=== PATIENT | male | born 1950 | race Caucasian/White ===

== ENCOUNTER 2017-09-08 15:37 | Emergency (ER) | payer MEDICARE ==
[2017-09-08 15:37] VITALS: BMI 26.7
[2017-09-08 16:25] VITALS: TEMP 98
--- NOTE | 2017-09-08 16:28 | C.PDOC ---
History Of Present Illness Patient presents to ED c/o dysuria and difficulty urinating (has to strain) x several days. He has urologist Dr. Christopher Diamond, and states he was previously given Flomax and Azo by him. He denies fever, flank pain, abdominal pain, penile discharge, nausea/vomiting, testicular pain. Time Seen by Provider: 09/08/17 16:18 Chief Complaint (Nursing): Male Genitourinary History Per: Patient, Other ( at bedside) History/Exam Limitations: no limitations Onset/Duration Of Symptoms: Days (3-4) Current Symptoms Are (Timing): Still Present Severity: Mild Quality Of Discomfort: "Pain" Associated Symptoms: Urinary Symptoms. denies: Fever, Chills, Nausea, Vomiting , Diarrhea Past Medical History Reviewed: Historical Data, Nursing Documentation, Vital Signs Vital Signs: Last Vital Signs Temp 98.0 F 09/08/17 15:42 Pulse 110 H 09/08/17 19:10 Resp 18 09/08/17 19:10 BP 166/93 H 09/08/17 19:10 Pulse Ox 99 09/08/17 19:10 - Medical History PMH: Depression, HTN Family History: States: No Known Family Hx - Social History Hx Alcohol Use: No Hx Substance Use: No - Immunization History Hx Tetanus Toxoid Vaccination: Yes Hx Influenza Vaccination: Yes Hx Pneumococcal Vaccination: Yes Review Of Systems Except As Marked, All Systems Reviewed And Found Negative. Constitutional: Negative for: Fever, Chills Cardiovascular: Negative for: Chest Pain, Palpitations Respiratory: Negative for: Cough, Shortness of Breath Gastrointestinal: Negative for: Nausea, Vomiting, Abdominal Pain, Diarrhea Genitourinary: Positive for: Dysuria. Negative for: Incontinence, Penile Discharge, Penile Pain Musculoskeletal: Negative for: Back Pain Physical Exam - Physical Exam Appears: Well, Non-toxic, No Acute Distress Head: Normacephalic Eye(s): bilateral: Normal Inspection Oral Mucosa: Moist Cardiovascular: Rhythm Regular Respiratory: Normal Breath Sounds, No Rales, No Rhonchi, No Wheezing Gastrointestinal/Abdominal: Bowel Sounds, Soft, Tenderness (mild suprapubic TTP , (-) McBurney's ) Back: No CVA Tenderness ED Course And Treatment O2 Sat by Pulse Oximetry: 98 (RA) Pulse Ox Interpretation: Normal Progress Note: UA, Ucx and accucheck ordered. Bladder scan, patient has less than 200ml in bladder. He was able to urinate without difficulty and provide UA sample. UA (+) for UTI - PO Ciprofloxacin given. Rxs for Cipro and pyridium given, and patient instructed to follow up with urologist within 1 week. He understands he should return to ED if symptoms worsen. Reevaluation Time: 19:00 Reassessment Condition: Improved (Patient resting comfortably, denies pain and is ambulating normally in ED.) Disposition Counseled Patient/Family Regarding: Studies Performed, Diagnosis, Need For Followup, Rx Given - Disposition Referrals: Rohna Diamond MD [Staff Provider] - Disposition: HOME/ ROUTINE Disposition Time: 19:00 Condition: STABLE Additional Instructions: FOLLOW UP WITH DR DIAMOND THIS WEEK USE ANTIBIOTICS UNTIL FINISHED DRINK PLENTY OF FLUIDS RETURN TO ER IF SYMPTOMS WORSEN Prescriptions: Ciprofloxacin [Cipro] 1 tab PO BID #14 tab Phenazopyridine [Pyridium] 100 mg PO TID #9 tab Instructions: Urinary Tract Infection in Men (ED) Forms: [facility] (Belizean) Print Language: ROMANIAN - POA Present On Arrival: None - Clinical Impression Clinical Impression: UTI (urinary tract infection)
[2017-09-08 17:31] LABS: RBC URINE 4 /hpf (0-3); URINE BACTERIA MOD (<OCC); URINE BILIRUBIN NEGATIVE (NEGATIVE); URINE BLOOD NEGATIVE (NEGATIVE); URINE COLOR Amber (YELLOW); URINE GLUCOSE (UA) NORMAL (Normal); URINE KETONE NEGATIVE (NEGATIVE); URINE LEUKOCYTE ESTERASE 3+ Leu/uL (Negative); URINE PROTEIN 1+ mg/dL (NEGATIVE); WBC URINE 1315 /hpf (0-5)
[2017-09-08 19:10] VITALS: BP 166/93; PULSE 110; RESP 18
[2017-09-08 23:30] VITALS: O2SAT 98
== END 2017-09-08 19:11 | disposition home or self-care (01) ==
LOC: C.ER 15:37
DX: N39.0 Urinary tract infection, site not specified (principal); I10 Essential (primary) hypertension; Z87.891 Personal history of nicotine dependence

== ENCOUNTER 2017-10-07 10:10 | Inpatient (IN) | payer MEDICARE ==
[2017-10-07 10:11] VITALS: BMI 26.7
[2017-10-07] MEDS ORDERED: Sodium Chloride 0.9% 500 ML IV ONE (10:44)
[2017-10-07] MEDS ORDERED: (Novolin R) Insulin Human Regular 100 units/ml vial IV ONE (10:50)
[2017-10-07 11:05] LABS: BASO # 0.1 K/uL (0.0-0.2); BASO % 0.7 % (0.0-2.0); EOS # 0.1 K/uL (0.0-0.7); EOS % 0.4 % (0.0-4.0); HEMATOCRIT 39.2 % (35.0-51.0); LYMPH # 0.7 K/uL (1.0-4.3); LYMPH % 4.1 % (20.0-40.0); MEAN CELL VOLUME 88.6 fL (80.0-94.0); MEAN CORPUSCULAR HEMOGLOBIN 27.4 pg (27.0-31.0); MEAN PLATELET VOLUME 10.2 fL (7.2-11.7); MONO # 0.9 K/uL (0.0-0.8); MONO % 5.5 % (0.0-10.0); PLATELET COUNT 350 K/uL (130-400); RED CELL DISTRIBUTION WIDTH 14.1 % (11.5-14.5); WHITE BLOOD COUNT 16.4 K/uL (4.8-10.8)
[2017-10-07] MEDS ORDERED: (Novolin R) Insulin Human Regular 100 units/ml vial ONE (11:11)
[2017-10-07 11:14] LABS: RBC URINE 21 /hpf (0-3); URINE BACTERIA RARE (<OCC); URINE BILIRUBIN NEGATIVE (NEGATIVE); URINE BLOOD 1+ (NEGATIVE); URINE COLOR Yellow (YELLOW); URINE GLUCOSE (UA) 3+ mg/dL (Normal); URINE KETONE TRACE mg/dL (NEGATIVE); URINE LEUKOCYTE ESTERASE TRACE Leu/uL (Negative); URINE PROTEIN NEGATIVE (NEGATIVE); URINE UROBILINOGEN NORMAL mg/dL (0.2-1.0); WBC URINE 26 /hpf (0-5)
--- NOTE | 2017-10-07 11:18 | C.PDOC ---
History Of Present Illness Michael Fontanez is a 67 year old male, with a past medical history of HTN, and diabetes, who presents to the emergency department complaining of abdominal pain and difficulty urination. On Sep 08, patient was seen in the ED complaining of dysuria relating to strain for several days. Patient was seen by Dr. Helton and given Flomax, no fevers at that time. Urinalysis and culture were done and he was discharged on Cipro and Pyridium with referral for Dr. Helton. Microbiology called on the for positive culture for ESBL, macrobid was sent and patient was recommended to come back for reevaluation. Today patient is here not feeling well, restless, feels dry, has trouble urinating and moving bowels for unclear amount of time. He denies any fever, chills, headache, neck pain, chest pain, shortness of breath, nausea or vomit. No further medical complaints. PMD: Dr. Nan Camacho Time Seen by Provider: 10/07/17 10:23 Chief Complaint (Nursing): Weakness/Neurological Deficit History Per: Patient History/Exam Limitations: no limitations Onset/Duration Of Symptoms: Days (x3) Current Symptoms Are (Timing): Still Present Location Of Pain/Discomfort: Diffuse Radiation Of Pain To:: None Quality Of Discomfort: "Pain" Associated Symptoms: Urinary Symptoms (difficulty urinating). denies: Fever, Chills, Nausea, Vomiting, Chest Pain Past Medical History Reviewed: Historical Data, Nursing Documentation, Vital Signs Vital Signs: Last Vital Signs Temp 97.6 F 10/07/17 10:27 Pulse 85 10/07/17 14:59 Resp 20 10/07/17 14:59 BP 124/84 10/07/17 14:59 Pulse Ox 96 10/07/17 14:18 - Medical History PMH: Depression, Diabetes, HTN Surgical History: No Surg Hx Family History: States: Unknown Family Hx - Social History Hx Tobacco Use: No (Former smoker) Hx Alcohol Use: No Hx Substance Use: No - Immunization History Hx Tetanus Toxoid Vaccination: Yes Hx Influenza Vaccination: Yes Hx Pneumococcal Vaccination: Yes Review Of Systems Except As Marked, All Systems Reviewed And Found Negative. Constitutional: Negative for: Fever, Chills Cardiovascular: Negative for: Chest Pain Respiratory: Negative for: Shortness of Breath Gastrointestinal: Positive for: Abdominal Pain (diffused). Negative for: Nausea , Vomiting Genitourinary: Positive for: Dysuria, Scrotal Pain Musculoskeletal: Negative for: Neck Pain Neurological: Negative for: Headache Physical Exam - Physical Exam Appears: Other (restless, poorly cooperative) Skin: Normal Color, Warm, Dry Head: Atraumatic, Normacephalic Eye(s): bilateral: Normal Inspection, PERRL, EOMI Nose: Normal Throat: Normal Neck: Normal, Normal ROM, Supple Cardiovascular: Rhythm Regular Respiratory: No Accessory Muscle Use Gastrointestinal/Abdominal: Tenderness (diffused), Distention (mild) Male Genital: Testicular Tenderness (diffuse) Extremity: Normal ROM, No Pedal Edema Neurological/Psych: Oriented x3, Normal Speech ED Course And Treatment - Laboratory Results Result Diagrams: 10/07/17 11:00 10/07/17 15:45 O2 Sat by Pulse Oximetry: 96 (RA) Pulse Ox Interpretation: Normal - CT Scan/US CT - Abd & Pelvis Other Rad Studies (CT/US): Read By Radiologist, Radiology Report Reviewed CT/US Interpretation: PROCEDURE: CT Abdomen and Pelvis without Oral or IV contrast. HISTORY: abd pain. COMPARISON: CT abdomen and pelvis performed 11/03. TECHNIQUE: Contiguous axial images of the abdomen and pelvis. No oral or IV contrast administered. Coronal and Sagittal reformats generated. Radiation dose: Total exam DLP = 701.48 mGy-cm. This CT exam was performed using one or more of the following dose reduction techniques: Automated exposure control, adjustment of the mA and/or kV according to patient size, and/or use of iterative reconstruction technique. FINDINGS: There is limited evaluation of the solid organs without the administration of IV contrast. LOWER THORAX: No visible consolidation, pleural effusion, or pneumothorax. LIVER: Unremarkable unenhanced appearance. GALLBLADDER AND BILE DUCTS: Decompressed gallbladder with high-density material, possibly debris/ sludge and/or calculi. PANCREAS: Atrophic pancreas. SPLEEN: Unremarkable unenhanced appearance. ADRENALS: Unremarkable unenhanced appearance. KIDNEYS AND URETERS: No hydronephrosis or obstructing renal calculus. 2.4 cm left upper pole renal hypodensity, likely cyst. BLADDER: Thick-walled under distended urinary bladder which contains air , possibly secondary to recent instrumentation. A Victoria catheter is present. REPRODUCTIVE: Unremarkable. APPENDIX: The appendix appears within normal limits of caliber. No secondary signs of acute appendicitis. BOWEL: The stomach is nondistended. Lack of oral contrast limits evaluation for bowel pathology. The bowel loops appear within normal limits of caliber without evidence of intestinal obstruction. PERITONEUM: No significant free fluid. No definite free air. LYMPH NODES: Enlarged/ bulky mesenteric, retroperitoneal, and inguinal adenopathy. VASCULATURE: No aortic aneurysm. BONES: Degenerative changes. OTHER FINDINGS: [id number]-right inguinal hernias. IMPRESSION: Enlarged/bulky mesenteric, retroperitoneal, and inguinal adenopathy consistent with history of lymphoma. Correlate clinically. Mesenteric inflammatory changes noted. Thick-walled under distended urinary bladder with Victoria catheter present and air. Intraluminal urinary bladder air may be secondary to recent instrumentation. Decompressed gallbladder containing high-density material, possibly debris/sludge and/or calculi. Correlate clinically. Atrophic pancreas. Medical Decision Making Medical Decision Making: Initial Impression: 67 y/o female with abdominal pain and scrotum pain Initial Plan: --Abd & Pelvis w/o PO contrast [CT] --EKG --B-type natriuretic peptide --Comp Metabolic Panel --Ketone, serum (Qual) --Lipase --Troponin I --CBC w/ differential --Chest one view [RAD] --Novolin R 6 unit IV --NS IV 5000 ml @ 1,000 mls/hr --Urine culture --Abdomen (flat plate) 1view [RAD] --Urinalysis --reevaluation 11:54 Abd/Pelvis CT FINDINGS: There is limited evaluation of the solid organs without the administration of IV contrast. LOWER THORAX: No visible consolidation, pleural effusion, or pneumothorax. LIVER: Unremarkable unenhanced appearance. GALLBLADDER AND BILE DUCTS: Decompressed gallbladder with high-density material, possibly debris/ sludge and /or calculi. PANCREAS: Atrophic pancreas. SPLEEN: Unremarkable unenhanced appearance. ADRENALS: Unremarkable unenhanced appearance. KIDNEYS AND URETERS: No hydronephrosis or obstructing renal calculus. 2.4 cm left upper pole renal hypodensity, likely cyst. BLADDER: Thick-walled under distended urinary bladder which contains air, possibly secondary to recent instrumentation. A Victoria catheter is present. REPRODUCTIVE: Unremarkable. APPENDIX: The appendix appears within normal limits of caliber. No secondary signs of acute appendicitis. BOWEL: The stomach is nondistended. Lack of oral contrast limits evaluation for bowel pathology. The bowel loops appear within normal limits of caliber without evidence of intestinal obstruction. PERITONEUM: No significant free fluid. No definite free air. LYMPH NODES: Enlarged/ bulky mesenteric, retroperitoneal, and inguinal adenopathy. VASCULATURE: No aortic aneurysm. BONES: Degenerative changes. OTHER FINDINGS: [id number]-ylxo-right inguinal hernias. IMPRESSION: Enlarged/bulky mesenteric, retroperitoneal, and inguinal adenopathy consistent with history of lymphoma. Correlate clinically. Mesenteric inflammatory changes noted. Thick-walled under distended urinary bladder with Victoria catheter present and air. Intraluminal urinary bladder air may be secondary to recent instrumentation. Decompressed gallbladder containing high-density material, possibly debris/ sludge and/or calculi. Correlate clinically. Atrophic pancreas. 13:51 Abdomen X-Ray FINDINGS: BOWEL: Left and right stool retention. No mechanical obstruction. No free air. BONES: L4 and L5 spondylosis. Bilateral hip mild osteoarthrosis OTHER FINDINGS: Multiple bilateral hemipelvic phleboliths IMPRESSION: Stool retention consistent with a clinical constipation. No mechanical obstruction. No free air 14:01 Chest x-ray FINDINGS: LUNGS: Clear. PLEURA: No pneumothorax or pleural fluid seen. CARDIOVASCULAR: Normal OSSEOUS STRUCTURES: Thoracic spondylosis. Bilateral shoulder arthrosis VISUALIZED UPPER ABDOMEN: Normal. OTHER FINDINGS: None. IMPRESSION: No pulmonary infiltrate. No interval pathology Patient seen by ICU, downgraded to tele. Disposition Discussed With DrFernando: Tarik Echeverria Counseled Patient/Family Regarding: Studies Performed, Diagnosis - Disposition Disposition Time: 18:17 Condition: GUARDED Forms: [facility] (Romanian) - Clinical Impression Clinical Impression: Hyperglycemia, Hyperosmolar non-ketotic state in patient with type 2 diabetes mellitus - Scribe Statement Antonio Heck Provider Attestation: All medical record entries made by the Scribe were at my direction and personally dictated by me. I have reviewed the chart and agree that the record accurately reflects my personal performance of the history, physical exam, medical decision making, and the department course for this patient. I have also personally directed, reviewed, and agree with the discharge instructions and disposition. Decision To Admit - Pt Status Changed To: Hospital Disposition Of: Inpatient - Admit Certification Admit to Inpatient:: After my assessment, the patient will require hospitalization for at least two midnights. This is because of the severity of symptoms shown, intensity of services needed, and/or the medical risk in this patient being treated as an outpatient. - InPatient: Physician Admission Certification:: critical patient - . Bed Request Type: Telemetry Patient Diagnosis: Hyperglycemia, Hyperosmolar non-ketotic state in patient with type 2 diabetes mellitus
[2017-10-07 11:47] LABS: NEUTROPHIL 94 % (50-75); TOTAL CELLS COUNTED 100
--- NOTE | 2017-10-07 12:08 | CT ---
PROCEDURE: CT Abdomen and Pelvis without Oral or IV contrast. HISTORY: abd pain COMPARISON: CT abdomen and pelvis performed 11/03/15 TECHNIQUE: Contiguous axial images of the abdomen and pelvis. No oral or IV contrast administered. Coronal and Sagittal reformats generated. Radiation dose: Total exam DLP = 701.48 mGy-cm. This CT exam was performed using one or more of the following dose reduction techniques: Automated exposure control, adjustment of the mA and/or kV according to patient size, and/or use of iterative reconstruction technique. FINDINGS: There is limited evaluation of the solid organs without the administration of IV contrast. LOWER THORAX: No visible consolidation, pleural effusion, or pneumothorax. LIVER: Unremarkable unenhanced appearance. GALLBLADDER AND BILE DUCTS: Decompressed gallbladder with high-density material, possibly debris/ sludge and/or calculi. PANCREAS: Atrophic pancreas. SPLEEN: Unremarkable unenhanced appearance. ADRENALS: Unremarkable unenhanced appearance. KIDNEYS AND URETERS: No hydronephrosis or obstructing renal calculus. 2.4 cm left upper pole renal hypodensity, likely cyst. BLADDER: Thick-walled under distended urinary bladder which contains air, possibly secondary to recent instrumentation. A Victoria catheter is present. REPRODUCTIVE: Unremarkable. APPENDIX: The appendix appears within normal limits of caliber. No secondary signs of acute appendicitis. BOWEL: The stomach is nondistended. Lack of oral contrast limits evaluation for bowel pathology. The bowel loops appear within normal limits of caliber without evidence of intestinal obstruction. PERITONEUM: No significant free fluid. No definite free air. LYMPH NODES: Enlarged/ bulky mesenteric, retroperitoneal, and inguinal adenopathy. VASCULATURE: No aortic aneurysm. BONES: Degenerative changes. OTHER FINDINGS: [id number]-fivj-right inguinal hernias. IMPRESSION: Enlarged/bulky mesenteric, retroperitoneal, and inguinal adenopathy consistent with history of lymphoma. Correlate clinically. Mesenteric inflammatory changes noted. Thick-walled under distended urinary bladder with Victoria catheter present and air. Intraluminal urinary bladder air may be secondary to recent instrumentation. Decompressed gallbladder containing high-density material, possibly debris/sludge and/or calculi. Correlate clinically. Atrophic pancreas.
[2017-10-07 12:51] LABS: ALB/GLOB RATIO 0.8 (1.0-2.1); ALKALINE PHOSPHATASE 111 U/L (38-126); ALT/SGPT 31 U/L (21-72); AST/SGOT 14 U/L (17-59); BILIRUBIN,TOTAL 0.5 mg/dL (0.2-1.3); BLOOD UREA NITROGEN 49 mg/dL (9-20); CALCIUM 8.3 mg/dl (8.6-10.4); CARBON DIOXIDE 24 mmol/L (22-30); CHLORIDE 87 mmol/L (98-107); GFR AFRICAN-AMERICAN 56; POTASSIUM 4.1 mmol/L (3.6-5.2); TOTAL PROTEIN 7.3 g/dL (6.3-8.3)
[2017-10-07 13:16] LABS: GLUCOSE,RANDOM 1179 mg/dL (75-110); SODIUM 119 mmol/L (132-148)
[2017-10-07] MEDS ORDERED: Insulin Human Regular 100 UNIT in Sodium Chloride 0.9% 99 ML IV STA ×2 (13:26→22:07)
[2017-10-07] MEDS ORDERED: Sodium Chloride 0.9% 1,000 ML IV ONE ×3 (13:26→20:01)
--- NOTE | 2017-10-07 13:52 | RAD ---
HISTORY: abd pain COMPARISON: No prior. FINDINGS: BOWEL: Left and right stool retention. No mechanical obstruction. No free air. BONES: L4 and L5 spondylosis. Bilateral hip mild osteoarthrosis OTHER FINDINGS: Multiple bilateral hemipelvic phleboliths IMPRESSION: Stool retention consistent with a clinical constipation. No mechanical obstruction. No free air
--- NOTE | 2017-10-07 14:03 | RAD ---
PROCEDURE: CHEST RADIOGRAPH, 1 VIEW HISTORY: abd pain COMPARISON: 11/01/2015 FINDINGS: LUNGS: Clear. PLEURA: No pneumothorax or pleural fluid seen. CARDIOVASCULAR: Normal OSSEOUS STRUCTURES: Thoracic spondylosis. Bilateral shoulder arthrosis VISUALIZED UPPER ABDOMEN: Normal. OTHER FINDINGS: None. IMPRESSION: No pulmonary infiltrate. No interval pathology
[2017-10-07 14:13] LABS: DRAW SITE VBG; VENOUS BLOOD GAS BASE EXCESS -1.5 mmol/L (0.0-2.0); VENOUS BLOOD GAS PCO2 47 mmHg (40-60); VENOUS BLOOD PH 7.33 (7.32-7.43)
[2017-10-07 16:27] LABS: ALKALINE PHOSPHATASE 114 U/L (38-126); ALT/SGPT 25 U/L (21-72); AST/SGOT 18 U/L (17-59); BILIRUBIN,TOTAL 0.6 mg/dL (0.2-1.3); BLOOD UREA NITROGEN 46 mg/dL (9-20); CALCIUM 8.3 mg/dl (8.6-10.4); CARBON DIOXIDE 26 mmol/L (22-30); CHLORIDE 87 mmol/L (98-107); GFR AFRICAN-AMERICAN > 60; POTASSIUM 3.7 mmol/L (3.6-5.2); SODIUM 125 mmol/L (132-148); TOTAL PROTEIN 7.3 g/dL (6.3-8.3)
[2017-10-07 16:48] LABS: GLUCOSE,RANDOM 854 mg/dL (75-110)
--- NOTE | 2017-10-07 19:55 | CP.PCM.HP ---
Past Patient History - Past Social History Smoking Status: Former Smoker - CARDIAC Hx Hypertension: Yes - ENDOCRINE/METABOLIC Hx Diabetes Mellitus Type 1: Yes (2014) - INTEGUMENTARY Other/Comment: Non Hodgekins Lymphoma - MUSCULOSKELETAL/RHEUMATOLOGICAL Hx Falls: Yes - GENITOURINARY/GYNECOLOGICAL Hx Prostate Problems: Yes - PSYCHIATRIC Hx Depression: Yes Hx Substance Use: No - SURGICAL HISTORY Other/Comment: biopsy of the groin 1998 - ANESTHESIA Hx Anesthesia: Yes Hx Anesthesia Reactions: No Meds Allergies/Adverse Reactions: Allergies Allergy/AdvReac Type Severity Reaction Status Date / Time No Known Allergies Allergy Verified 10/07/17 10:14 Results - Vital Signs Recent Vital Signs: Last Vital Signs Temp 97.6 F 10/07/17 10:27 Pulse 85 10/07/17 14:59 Resp 20 10/07/17 14:59 BP 124/84 10/07/17 14:59 Pulse Ox 96 10/07/17 18:18 - Labs Result Diagrams: 10/07/17 11:00 10/07/17 15:45 Labs: Laboratory Results - last 24 hr 10/07/17 10/07/17 10/07/17 10:40 10:40 11:00 WBC 16.4 H D RBC 4.42 Hgb 12.1 D Hct 39.2 MCV 88.6 MCH 27.4 MCHC 31.0 L RDW 14.1 Plt Count 350 D MPV 10.2 Neut % (Auto) 89.3 H Lymph % (Auto) 4.1 L Ellis % (Auto) 5.5 Eos % (Auto) 0.4 Baso % (Auto) 0.7 Neut # 14.6 H Lymph # 0.7 L Ellis # 0.9 H Eos # 0.1 Baso # 0.1 Neutrophils % (Manual) 94 H Lymphocytes % (Manual) 4 L Monocytes % (Manual) 2 Platelet Estimate Normal RBC Morphology Normal Puncture Site pO2 Mega Test VBG pH VBG pCO2 VBG HCO3 VBG O2 Sat (Calc) VBG Base Excess Sodium Potassium Chloride Carbon Dioxide Anion Gap BUN Creatinine Est GFR ( Amer) Est GFR (Non-Af Amer) POC Glucose (mg/dL) > 500 H* > 500 H* Random Glucose Calcium Total Bilirubin AST ALT Alkaline Phosphatase Troponin I NT-Pro-B Natriuret Pep Total Protein Albumin Globulin Albumin/Globulin Ratio Lipase Urine Color Urine Clarity Urine pH Ur Specific [place] Urine Protein Urine Glucose (UA) Urine Ketones Urine Blood Urine Nitrate Urine Bilirubin Urine Urobilinogen Ur Leukocyte Esterase Urine WBC (Auto) Urine RBC (Auto) Urine Bacteria Serum Ketones 10/07/17 10/07/17 10/07/17 11:00 11:00 12:19 WBC RBC Hgb Hct MCV MCH MCHC RDW Plt Count MPV Neut % (Auto) Lymph % (Auto) Ellis % (Auto) Eos % (Auto) Baso % (Auto) Neut # Lymph # Ellis # Eos # Baso # Neutrophils % (Manual) Lymphocytes % (Manual) Monocytes % (Manual) Platelet Estimate RBC Morphology Puncture Site pO2 Mega Test VBG pH VBG pCO2 VBG HCO3 VBG O2 Sat (Calc) VBG Base Excess Sodium Cancelled 119 L* Potassium Cancelled 4.1 Chloride Cancelled 87 L Carbon Dioxide Cancelled 24 Anion Gap Cancelled 12 BUN Cancelled 49 H Creatinine Cancelled 1.5 Est GFR ( Amer) Cancelled 56 Est GFR (Non-Af Amer) Cancelled 46 POC Glucose (mg/dL) Random Glucose Cancelled 1179 H* Calcium Cancelled 8.3 L Total Bilirubin Cancelled 0.5 AST Cancelled 14 L ALT Cancelled 31 Alkaline Phosphatase Cancelled 111 Troponin I Cancelled < 0.0120 NT-Pro-B Natriuret Pep Cancelled 673 Total Protein Cancelled 7.3 Albumin Cancelled 3.2 L Globulin Cancelled 4.1 H Albumin/Globulin Ratio Cancelled 0.8 L Lipase Cancelled 88 Urine Color Yellow Urine Clarity Hazy Urine pH 5.0 Ur Specific [place] 1.021 Urine Protein Negative Urine Glucose (UA) 3+ H Urine Ketones Trace Urine Blood 1+ H Urine Nitrate Negative Urine Bilirubin Negative Urine Urobilinogen Normal Ur Leukocyte Esterase Trace Urine WBC (Auto) 26 H Urine RBC (Auto) 21 H Urine Bacteria Rare Serum Ketones Cancelled Neg 10/07/17 10/07/17 10/07/17 14:10 14:12 15:21 WBC RBC Hgb Hct MCV MCH MCHC RDW Plt Count MPV Neut % (Auto) Lymph % (Auto) Ellis % (Auto) Eos % (Auto) Baso % (Auto) Neut # Lymph # Ellis # Eos # Baso # Neutrophils % (Manual) Lymphocytes % (Manual) Monocytes % (Manual) Platelet Estimate RBC Morphology Puncture Site Vbg pO2 34 Mgea Test Na VBG pH 7.33 VBG pCO2 47 VBG HCO3 22.8 VBG O2 Sat (Calc) 64.9 VBG Base Excess -1.5 L Sodium Potassium Chloride Carbon Dioxide Anion Gap BUN Creatinine Est GFR ( Amer) Est GFR (Non-Af Amer) POC Glucose (mg/dL) > 500 H* Random Glucose Calcium Total Bilirubin AST ALT Alkaline Phosphatase Troponin I NT-Pro-B Natriuret Pep Total Protein Albumin Globulin Albumin/Globulin Ratio Lipase Urine Color Urine Clarity Urine pH Ur Specific [place] Urine Protein Urine Glucose (UA) Urine Ketones Urine Blood Urine Nitrate Urine Bilirubin Urine Urobilinogen Ur Leukocyte Esterase Urine WBC (Auto) Urine RBC (Auto) Urine Bacteria Serum Ketones Negative 10/07/17 10/07/17 10/07/17 15:23 15:45 17:18 WBC RBC Hgb Hct MCV MCH MCHC RDW Plt Count MPV Neut % (Auto) Lymph % (Auto) Ellis % (Auto) Eos % (Auto) Baso % (Auto) Neut # Lymph # Ellis # Eos # Baso # Neutrophils % (Manual) Lymphocytes % (Manual) Monocytes % (Manual) Platelet Estimate RBC Morphology Puncture Site pO2 Mega Test VBG pH VBG pCO2 VBG HCO3 VBG O2 Sat (Calc) VBG Base Excess Sodium 125 L Potassium 3.7 Chloride 87 L Carbon Dioxide 26 Anion Gap 16 BUN 46 H Creatinine 1.4 Est GFR ( Amer) > 60 Est GFR (Non-Af Amer) 50 POC Glucose (mg/dL) > 500 H* > 500 H* Random Glucose 854 H* D Calcium 8.3 L Total Bilirubin 0.6 AST 18 ALT 25 Alkaline Phosphatase 114 Troponin I NT-Pro-B Natriuret Pep Total Protein 7.3 Albumin 3.7 Globulin 3.6 Albumin/Globulin Ratio 1.0 Lipase Urine Color Urine Clarity Urine pH Ur Specific [place] Urine Protein Urine Glucose (UA) Urine Ketones Urine Blood Urine Nitrate Urine Bilirubin Urine Urobilinogen Ur Leukocyte Esterase Urine WBC (Auto) Urine RBC (Auto) Urine Bacteria Serum Ketones 10/07/17 19:24 WBC RBC Hgb Hct MCV MCH MCHC RDW Plt Count MPV Neut % (Auto) Lymph % (Auto) Ellis % (Auto) Eos % (Auto) Baso % (Auto) Neut # Lymph # Ellis # Eos # Baso # Neutrophils % (Manual) Lymphocytes % (Manual) Monocytes % (Manual) Platelet Estimate RBC Morphology Puncture Site pO2 Mega Test VBG pH VBG pCO2 VBG HCO3 VBG O2 Sat (Calc) VBG Base Excess Sodium Potassium Chloride Carbon Dioxide Anion Gap BUN Creatinine Est GFR ( Amer) Est GFR (Non-Af Amer) POC Glucose (mg/dL) > 500 H* Random Glucose Calcium Total Bilirubin AST ALT Alkaline Phosphatase Troponin I NT-Pro-B Natriuret Pep Total Protein Albumin Globulin Albumin/Globulin Ratio Lipase Urine Color Urine Clarity Urine pH Ur Specific [place] Urine Protein Urine Glucose (UA) Urine Ketones Urine Blood Urine Nitrate Urine Bilirubin Urine Urobilinogen Ur Leukocyte Esterase Urine WBC (Auto) Urine RBC (Auto) Urine Bacteria Serum Ketones
[2017-10-07] MEDS ORDERED: Insulin Detemir 100 units/ml Vial (Levemir) SC STA (20:00)
[2017-10-07] MEDS ORDERED: (Novolin R) Insulin Human Regular 100 units/ml vial IV STA (20:01)
--- NOTE | 2017-10-07 20:51 | CARD ---
APPROVED REPORT EKG Measurement Heart [id number] <Conclusion> Sinus rhythm with occasional premature ventricular complexes Otherwise normal ECG
[2017-10-07] MEDS ORDERED: Meropenem 1 GM in Sodium Chloride 0.9% 100 ML IVPB ONE (21:28)
--- NOTE | 2017-10-07 21:38 | CP.PCM.CON ---
History of Present Illness - History of Present Illness History of Present Illness: 67yo M. PMHx of HTN, Non-Hodgkins lymphoma, hyperlipidemia, DM type 2, recurrent UTI's, possible BPH. p/w HHS, possibly underlying UTI. Review of Systems - Review of Systems All systems: reviewed and no additional remarkable complaints except (nothing) Past Patient History - Past Social History Smoking Status: Former Smoker - CARDIAC Hx Hypertension: Yes - ENDOCRINE/METABOLIC Hx Diabetes Mellitus Type 1: Yes (2014) - INTEGUMENTARY Other/Comment: Non Hodgekins Lymphoma - MUSCULOSKELETAL/RHEUMATOLOGICAL Hx Falls: Yes - GENITOURINARY/GYNECOLOGICAL Hx Prostate Problems: Yes - PSYCHIATRIC Hx Depression: Yes Hx Substance Use: No - SURGICAL HISTORY Other/Comment: biopsy of the groin 1998 - ANESTHESIA Hx Anesthesia: Yes Hx Anesthesia Reactions: No Meds Allergies/Adverse Reactions: Allergies Allergy/AdvReac Type Severity Reaction Status Date / Time No Known Allergies Allergy Verified 10/07/17 10:14 - Medications Medications: Current Medications Insulin Human Regular 100 unit (/ Sodium Chloride) 100 mls @ 5 mls/hr IV .Q20H STA PRN Reason: 5 U/HR Stop: 10/08/17 09:25 Last Admin: 10/07/17 14:01 Dose: 5 mls/hr Sodium Chloride (Sodium Chloride 0.9%) 1,000 mls @ 150 mls/hr IV .Q6H40M ONE Stop: 10/08/17 02:40 Last Admin: 10/07/17 20:13 Dose: 150 mls/hr Physical Exam - Constitutional Appears: Well - Head Exam Head Exam: ATRAUMATIC, NORMAL INSPECTION, NORMOCEPHALIC - Eye Exam Eye Exam: EOMI, Normal appearance, PERRL - ENT Exam ENT Exam: Mucous Membranes Moist, Normal Exam - Respiratory Exam Respiratory Exam: Clear to Auscultation Bilateral, NORMAL BREATHING PATTERN - Cardiovascular Exam Cardiovascular Exam: REGULAR RHYTHM - GI/Abdominal Exam GI & Abdominal Exam: Normal Bowel Sounds, Soft. absent: Tenderness - Extremities Exam Extremities exam: Positive for: normal inspection - Neurological Exam Neurological exam: Alert, CN II-XII Intact, Normal Gait, Oriented x3, Reflexes Normal - Psychiatric Exam Psychiatric exam: Normal Affect, Normal Mood Results - Vital Signs Recent Vital Signs: Last Vital Signs Temp 98.6 F 10/07/17 20:19 Pulse 84 10/07/17 20:16 Resp 14 10/07/17 20:16 BP 113/65 10/07/17 20:16 Pulse Ox 98 10/07/17 20:16 - Labs Result Diagrams: 10/07/17 11:00 10/07/17 15:45 Labs: Laboratory Results - last 24 hr 10/07/17 10/07/17 10/07/17 10:40 10:40 11:00 WBC 16.4 H D RBC 4.42 Hgb 12.1 D Hct 39.2 MCV 88.6 MCH 27.4 MCHC 31.0 L RDW 14.1 Plt Count 350 D MPV 10.2 Neut % (Auto) 89.3 H Lymph % (Auto) 4.1 L [place] % (Auto) 5.5 Eos % (Auto) 0.4 Baso % (Auto) 0.7 Neut # 14.6 H Lymph # 0.7 L [place] # 0.9 H Eos # 0.1 Baso # 0.1 Neutrophils % (Manual) 94 H Lymphocytes % (Manual) 4 L Monocytes % (Manual) 2 Platelet Estimate Normal RBC Morphology Normal Puncture Site pO2 Mega Test VBG pH VBG pCO2 VBG HCO3 VBG O2 Sat (Calc) VBG Base Excess Sodium Potassium Chloride Carbon Dioxide Anion Gap BUN Creatinine Est GFR ( Amer) Est GFR (Non-Af Amer) POC Glucose (mg/dL) > 500 H* > 500 H* Random Glucose Calcium Total Bilirubin AST ALT Alkaline Phosphatase Troponin I NT-Pro-B Natriuret Pep Total Protein Albumin Globulin Albumin/Globulin Ratio Lipase Urine Color Urine Clarity Urine pH Ur Specific [place] Urine Protein Urine Glucose (UA) Urine Ketones Urine Blood Urine Nitrate Urine Bilirubin Urine Urobilinogen Ur Leukocyte Esterase Urine WBC (Auto) Urine RBC (Auto) Urine Bacteria Serum Ketones 10/07/17 10/07/17 10/07/17 11:00 11:00 12:19 WBC RBC Hgb Hct MCV MCH MCHC RDW Plt Count MPV Neut % (Auto) Lymph % (Auto) [place] % (Auto) Eos % (Auto) Baso % (Auto) Neut # Lymph # [place] # Eos # Baso # Neutrophils % (Manual) Lymphocytes % (Manual) Monocytes % (Manual) Platelet Estimate RBC Morphology Puncture Site pO2 Mega Test VBG pH VBG pCO2 VBG HCO3 VBG O2 Sat (Calc) VBG Base Excess Sodium Cancelled 119 L* Potassium Cancelled 4.1 Chloride Cancelled 87 L Carbon Dioxide Cancelled 24 Anion Gap Cancelled 12 BUN Cancelled 49 H Creatinine Cancelled 1.5 Est GFR ( Amer) Cancelled 56 Est GFR (Non-Af Amer) Cancelled 46 POC Glucose (mg/dL) Random Glucose Cancelled 1179 H* Calcium Cancelled 8.3 L Total Bilirubin Cancelled 0.5 AST Cancelled 14 L ALT Cancelled 31 Alkaline Phosphatase Cancelled 111 Troponin I Cancelled < 0.0120 NT-Pro-B Natriuret Pep Cancelled 673 Total Protein Cancelled 7.3 Albumin Cancelled 3.2 L Globulin Cancelled 4.1 H Albumin/Globulin Ratio Cancelled 0.8 L Lipase Cancelled 88 Urine Color Yellow Urine Clarity Hazy Urine pH 5.0 Ur Specific [place] 1.021 Urine Protein Negative Urine Glucose (UA) 3+ H Urine Ketones Trace Urine Blood 1+ H Urine Nitrate Negative Urine Bilirubin Negative Urine Urobilinogen Normal Ur Leukocyte Esterase Trace Urine WBC (Auto) 26 H Urine RBC (Auto) 21 H Urine Bacteria Rare Serum Ketones Cancelled Neg 10/07/17 10/07/17 10/07/17 14:10 14:12 15:21 WBC RBC Hgb Hct MCV MCH MCHC RDW Plt Count MPV Neut % (Auto) Lymph % (Auto) [place] % (Auto) Eos % (Auto) Baso % (Auto) Neut # Lymph # [place] # Eos # Baso # Neutrophils % (Manual) Lymphocytes % (Manual) Monocytes % (Manual) Platelet Estimate RBC Morphology Puncture Site Vbg pO2 34 Mega Test Na VBG pH 7.33 VBG pCO2 47 VBG HCO3 22.8 VBG O2 Sat (Calc) 64.9 VBG Base Excess -1.5 L Sodium Potassium Chloride Carbon Dioxide Anion Gap BUN Creatinine Est GFR ( Amer) Est GFR (Non-Af Amer) POC Glucose (mg/dL) > 500 H* Random Glucose Calcium Total Bilirubin AST ALT Alkaline Phosphatase Troponin I NT-Pro-B Natriuret Pep Total Protein Albumin Globulin Albumin/Globulin Ratio Lipase Urine Color Urine Clarity Urine pH Ur Specific [place] Urine Protein Urine Glucose (UA) Urine Ketones Urine Blood Urine Nitrate Urine Bilirubin Urine Urobilinogen Ur Leukocyte Esterase Urine WBC (Auto) Urine RBC (Auto) Urine Bacteria Serum Ketones Negative 10/07/17 10/07/17 10/07/17 15:23 15:45 17:18 WBC RBC Hgb Hct MCV MCH MCHC RDW Plt Count MPV Neut % (Auto) Lymph % (Auto) [place] % (Auto) Eos % (Auto) Baso % (Auto) Neut # Lymph # [place] # Eos # Baso # Neutrophils % (Manual) Lymphocytes % (Manual) Monocytes % (Manual) Platelet Estimate RBC Morphology Puncture Site pO2 Mega Test VBG pH VBG pCO2 VBG HCO3 VBG O2 Sat (Calc) VBG Base Excess Sodium 125 L Potassium 3.7 Chloride 87 L Carbon Dioxide 26 Anion Gap 16 BUN 46 H Creatinine 1.4 Est GFR ( Amer) > 60 Est GFR (Non-Af Amer) 50 POC Glucose (mg/dL) > 500 H* > 500 H* Random Glucose 854 H* D Calcium 8.3 L Total Bilirubin 0.6 AST 18 ALT 25 Alkaline Phosphatase 114 Troponin I NT-Pro-B Natriuret Pep Total Protein 7.3 Albumin 3.7 Globulin 3.6 Albumin/Globulin Ratio 1.0 Lipase Urine Color Urine Clarity Urine pH Ur Specific [place] Urine Protein Urine Glucose (UA) Urine Ketones Urine Blood Urine Nitrate Urine Bilirubin Urine Urobilinogen Ur Leukocyte Esterase Urine WBC (Auto) Urine RBC (Auto) Urine Bacteria Serum Ketones 10/07/17 10/07/17 10/07/17 19:24 20:23 21:06 WBC RBC Hgb Hct MCV MCH MCHC RDW Plt Count MPV Neut % (Auto) Lymph % (Auto) [place] % (Auto) Eos % (Auto) Baso % (Auto) Neut # Lymph # [place] # Eos # Baso # Neutrophils % (Manual) Lymphocytes % (Manual) Monocytes % (Manual) Platelet Estimate RBC Morphology Puncture Site pO2 Mega Test VBG pH VBG pCO2 VBG HCO3 VBG O2 Sat (Calc) VBG Base Excess Sodium Potassium Chloride Carbon Dioxide Anion Gap BUN Creatinine Est GFR ( Amer) Est GFR (Non-Af Amer) POC Glucose (mg/dL) > 500 H* 429 H* 340 H Random Glucose Calcium Total Bilirubin AST ALT Alkaline Phosphatase Troponin I NT-Pro-B Natriuret Pep Total Protein Albumin Globulin Albumin/Globulin Ratio Lipase Urine Color Urine Clarity Urine pH Ur Specific [place] Urine Protein Urine Glucose (UA) Urine Ketones Urine Blood Urine Nitrate Urine Bilirubin Urine Urobilinogen Ur Leukocyte Esterase Urine WBC (Auto) Urine RBC (Auto) Urine Bacteria Serum Ketones Assessment & Plan (1) Hyperosmolar non-ketotic state in patient with type 2 diabetes mellitus Assessment and Plan: 67yo M. PMHx of HTN, Non-Hodgkins lymphoma, hyperlipidemia, DM type 2, recurrent UTI's, possible BPH. p/w HHS, possibly underlying UTI. Neuro: no acute issues Pulm: breathing spontaneously on room air CV: hemodynamically stable Renal: probable BPH, will start Flomax. probable pseudohyponatremia, will recheck once glucose is corrected. NS@150 Endo: hyperosmolar hyperglycemic state, on insulin drip, titrate down to sliding scale with qac/qhs coverage. Endo consult in a.m. GI: diabetic diet ID: sepsis from UTI, started Meropenem (hx of ESBL) DVT proph - lovenox GI proph - not currently indicated Full code Critical Care time 35 minutes Status: Acute
[2017-10-07] MEDS: Meropenem 1 GM in Sodium Chloride 0.9% 100 ML IVPB SCH (21:54)
[2017-10-08] MEDS ORDERED: Sodium Chloride 0.9% 1,000 ML IV SCH (04:30)
[2017-10-08] MEDS: Meropenem 1 GM in Sodium Chloride 0.9% 100 ML IVPB SCH ×3 (05:49→21:15)
[2017-10-08] MEDS ORDERED: (Novolin R) Insulin Human Regular 100 units/ml vial SC SCH (06:00)
[2017-10-08 06:39] LABS: BASO # 0.1 K/uL (0.0-0.2); BASO % 0.6 % (0.0-2.0); EOS # 0.2 K/uL (0.0-0.7); EOS % 1.1 % (0.0-4.0); HEMATOCRIT 32.9 % (35.0-51.0); LYMPH # 1.5 K/uL (1.0-4.3); MEAN CELL VOLUME 82.9 fL (80.0-94.0); MEAN CORPUSCULAR HEMOGLOBIN 28.4 pg (27.0-31.0); MEAN CORPUSCULAR HGB CONC 34.3 g/dL (33.0-37.0); MONO # 1.1 K/uL (0.0-0.8); MONO % 6.2 % (0.0-10.0); PLATELET COUNT 379 K/uL (130-400); RED CELL DISTRIBUTION WIDTH 13.9 % (11.5-14.5); WHITE BLOOD COUNT 17.2 K/uL (4.8-10.8)
[2017-10-08 07:52] LABS: ALKALINE PHOSPHATASE 93 U/L (38-126); ALT/SGPT 31 U/L (21-72); AST/SGOT 17 U/L (17-59); BILIRUBIN,TOTAL 0.6 mg/dL (0.2-1.3); BLOOD UREA NITROGEN 37 mg/dL (9-20); CALCIUM 8.6 mg/dl (8.6-10.4); CARBON DIOXIDE 26 mmol/L (22-30); CHLORIDE 100 mmol/L (98-107); GFR AFRICAN-AMERICAN > 60; GLUCOSE,RANDOM 265 mg/dL (75-110); MAGNESIUM 1.6 mg/dL (1.6-2.3); PHOSPHOROUS 3.2 mg/dL (2.5-4.5); POTASSIUM 3.5 mmol/L (3.6-5.2); SODIUM 134 mmol/L (132-148); TOTAL PROTEIN 6.6 g/dL (6.3-8.3)
[2017-10-08 08:27] LABS: EOSINOPHIL 1 % (0-4); MYELOCYTE 1 % (0-0); NEUTROPHIL 85 % (50-75); TOTAL CELLS COUNTED 100
[2017-10-08 08:28] LABS: GIANT PLATELETS PRESENT
[2017-10-08] MEDS ORDERED: Potassium Chloride 20 mEq ER Tab PO ONE (09:15)
[2017-10-08] MEDS: (Novolin R) Insulin Human Regular 100 units/ml vial SC SCH ×3 (11:51→21:22)
--- NOTE | 2017-10-08 19:54 | CP.PCM.PN ---
Subjective - Date & Time of Evaluation Date of Evaluation: 10/08/17 Time of Evaluation: 12:20 - Subjective Subjective: clinically same Objective - Vital Signs/Intake and Output Vital Signs (last 24 hours): Temp Pulse Resp BP Pulse Ox 97.9 F 96 H 17 101/49 L 95 10/08/17 16:00 10/08/17 18:00 10/08/17 16:10 10/08/17 16:02 10/08/17 08:00 Intake and Output: 10/08/17 10/09/17 18:59 06:59 Intake Total 1775 Output Total 1160 Balance 615 - Medications Medications: Current Medications Enoxaparin Sodium (Lovenox) 40 mg SC DAILY [facility] Glipizide (Glucotrol) 10 mg PO ACB [facility] Last Admin: 10/08/17 16:56 Dose: 10 mg Meropenem 1 gm/ Sodium (Chloride) 100 mls @ 100 mls/hr IVPB Q8H [facility] Last Admin: 10/08/17 13:10 Dose: 100 mls/hr Insulin Human Regular (Novolin R) 0 unit SC ACHS [facility] PRN Reason: Protocol Last Admin: 10/08/17 16:37 Dose: 12 unit Ketorolac Tromethamine (Toradol) 30 mg IVP Q8H PRN PRN Reason: Pain, moderate (4-7) Last Admin: 10/08/17 19:02 Dose: 30 mg Metformin HCl (Glucophage) 500 mg PO BIDAC [facility] Last Admin: 10/08/17 16:56 Dose: 500 mg Pneumococcal Polyvalent Vaccine (Pneumovax 23 Vaccine) 0.5 ml IM .ONCE ONE Stop: 10/09/17 10:01 Tamsulosin HCl (Flomax) 0.4 mg PO DAILY [facility] Last Admin: 10/08/17 09:21 Dose: 0.4 mg - Labs Labs: 10/08/17 06:26 10/08/17 06:59 - Constitutional Appears: Well - Head Exam Head Exam: ATRAUMATIC, NORMAL INSPECTION, NORMOCEPHALIC - Eye Exam Eye Exam: EOMI, Normal appearance, PERRL Pupil Exam: NORMAL ACCOMODATION, PERRL - ENT Exam ENT Exam: Mucous Membranes Moist, Normal Exam - Neck Exam Neck Exam: Full ROM, Normal Inspection. absent: Lymphadenopathy - Respiratory Exam Respiratory Exam: Decreased Breath Sounds - Cardiovascular Exam Cardiovascular Exam: REGULAR RHYTHM, +S1, +S2 - GI/Abdominal Exam GI & Abdominal Exam: Soft, Diminished Bowel Sounds - Rectal Exam Rectal Exam: Deferred
[2017-10-08] MEDS: Enoxaparin 40 mg Syringe SC SCH (21:22)
[2017-10-09] MEDS: Meropenem 1 GM in Sodium Chloride 0.9% 100 ML IVPB SCH ×3 (05:15→22:29)
[2017-10-09] MEDS: (Novolin R) Insulin Human Regular 100 units/ml vial SC SCH ×4 (07:52→22:38)
[2017-10-09] MEDS: Enoxaparin 40 mg Syringe SC SCH (09:57)
[2017-10-09] MEDS ORDERED: Pneumococcal 23-Valent Vaccine IM ONE (10:00)
--- NOTE | 2017-10-09 17:17 | CP.PCM.CON ---
History of Present Illness - History of Present Illness History of Present Illness: 67 year old male, with a past medical history of HTN, and diabetes, who presents to the emergency department complaining of abdominal pain and difficulty urination. On Sep 08, patient was seen in the ED complaining of dysuria relating to strain for several days. Patient was seen by Dr. Helton and given Flomax, no fevers at that time. Urinalysis and culture were done and he was discharged on Cipro and Pyridium with referral for Dr. Helton. Microbiology called on the for positive culture for ESBL, macrobid was sent and patient was recommended to come back for reevaluation. Today patient is here not feeling well, restless, feels dry, has trouble urinating and moving bowels for unclear amount of time. He denies any fever, chills, headache, neck pain, chest pain, shortness of breath, nausea or vomit. No further medical complaints. referered for ID eval urosepsis esbl + - Medical History PMH: Depression, Diabetes, HTN Surgical History: No Surg Hx Family History: States: Unknown Family Hx - Social History Hx Tobacco Use: No (Former smoker) Hx Alcohol Use: No Hx Substance Use: No Review of Systems - Review of Systems All systems: reviewed and no additional remarkable complaints except - Constitutional Constitutional: As Per HPI, Chills, Fatigue, Fever, Malaise - EENT Eyes: absent: As Per HPI, Blind Spots, Blurred Vision, Change in Vision, Decreased Night Vision, Diplopia, Discharge, Dry Eye, Exophthalmos, Floaters, Irritation, Itchy Eyes, Loss of Peripheral Vision, Pain, Photophobia, Requires Corrective Lenses, Sees Flashes, Spots in Vision, Tunnel Vision, Other Visual Disturbances, Loss of Vision, Other Ears: absent: As Per HPI, Decreased Hearing, Ear Discharge, Ear Pain, Tinnitus, Abnormal Hearing, Disequilibrium, Dizziness, Other Nose/Mouth/Throat: absent: As Per HPI, Epistaxis, Nasal Congestion, Nasal Discharge, Nasal Obstruction, Nasal Trauma, Nose Pain, Post Nasal Drip, Sinus Pain, Sinus Pressure, Bleeding Gums, Change in Voice, Dental Pain, Dry Mouth, Dysphagia, Halitosis, Hoarsness, Lip Swelling, Mouth Lesions, Mouth Pain, Odynophagia, Sore Throat, Throat Swelling, Tongue Swelling, Facial Pain, Neck Pain, Neck Mass, Other - Cardiovascular Cardiovascular: absent: As Per HPI, Acrocyanosis, Chest Pain, Chest Pain at Rest , Chest Pain with Activity, Claudication, Diaphoresis, Dyspnea, Dyspnea on Exertion, Edema, Irregular Heart Rhythm, Pain Radiating to Arm/Neck/Jaw, Leg Edema, Leg Ulcers, Lightheadedness, Orthopnea, Palpitations, Paroxysmal Nocturnal Dyspnea, Pedal Edema, Radiating Pain, Rapid Heart Rate, Slow Heart Rate, Syncope, Other - Respiratory Respiratory: absent: As Per HPI, Cough, Dyspnea, Hemoptysis, Dyspnea on Exertion , Wheezing, Snoring, Stridor, Pain on Inspiration, Chest Congestion, Excessive Mucous Production, Change in Mucous Color, Pain with Coughing, Other - Gastrointestinal Gastrointestinal: absent: As Per HPI, Abdominal Pain, Belching, Bloating, Change in Bowel Habits, Change in Stool Character, Coffee Ground Emesis, Constipation, Cramping, Diarrhea, Dyspepsia, Dysphagia, Early Satiety, Excessive Flatus, Fecal Incontinence, Heartburn, Hematemesis, Hematochezia, Loose Stools, Melena, Nausea, Odynophagia, Temesmus, Vomiting, Other - Genitourinary Genitourinary: As Per HPI, Change in Urinary Stream - Musculoskeletal Musculoskeletal: absent: As Per HPI, Abnormal Gait, Arthralgias, Atrophy, Back Pain, Deformity, Joint Swelling, Limited Range of Motion, Loss of Height, Muscle Cramps, Muscle Weakness, Myalgias, Neck Pain, Numbness, Radiating Pain into Limb, Stiffness, Tingling, Other - Integumentary Integumentary: absent: As Per HPI, Acne, Alopecia, Bleeding Lesions, Change in Hair, Change in Nails, Change in Pigmentation, Changing Lesions, Dry Skin, Erythema, Furuncle, Hirsutism, Lesions, New Lesions, Non-Healing Lesions, Photosensitivity, Pruritus, Rash, Skin Pain, Skin Ulcer, Sores, Striae, Swelling , Unusual Bruising, Wounds, Jaundice, Other - Neurological Neurological: absent: As Per HPI, Abnormal Gait, Abnormal Hearing, Abnormal Movements, Abnormal Speech, Behavioral Changes, Burning Sensations, Confusion, Convulsions, Disequilibrium, Dizziness, Numbness, Focal Weakness, Frequent Falls , Headaches, Lack of Coordination, Loss of Vision, Memory Loss, Paresthesias, Radicular Pain, Restless Legs, Sensory Deficit, Syncope, Tingling, Tremor, Vertigo, Weakness, Other Visual Disturbances, Other - Psychiatric Psychiatric: absent: As Per HPI, Abnormal Sleep Pattern, Anhedonia, Anxiety, Auditory Hallucinations, Behavioral Changes, Change in Appetite, Change in Libido, Confusion, Depression, Difficulty Concentrating, Hallucinations, Homicidal Ideation, Hopelessness, Irritability, Memory Loss, Mood Swings, Panic Attacks, Paranoia, Suicidal Ideation, Visual Hallucinations, Tactile Hallucinations, Other - Endocrine Endocrine: absent: As Per HPI, Change in Body Appearance, Change in Libido, Cold Intolorance, Deepening of Voice, Excessive Sweating, Fatigue, Flushing, Heat Intolorance, Increase in Ring/Shoe/Hat Size, Palpitations, Polydipsia, Polyphagia, Polyuria, Other - Hematologic/Lymphatic Hematologic: absent: As Per HPI, Easy Bleeding, Easy Bruising, Lymphadenopathy, Other Past Patient History - Past Medical History & Family History Past Medical History?: Yes - Past Social History Smoking Status: Former Smoker - CARDIAC Hx Hypertension: Yes - ENDOCRINE/METABOLIC Hx Diabetes Mellitus Type 1: Yes (2014) - HEMATOLOGICAL/ONCOLOGICAL Other/Comment: non hodgkins lymphoma - INTEGUMENTARY Other/Comment: Non Hodgekins Lymphoma - MUSCULOSKELETAL/RHEUMATOLOGICAL Hx Falls: Yes - GENITOURINARY/GYNECOLOGICAL Hx Prostate Problems: Yes - PSYCHIATRIC Hx Depression: Yes Hx Substance Use: No - SURGICAL HISTORY Other/Comment: biopsy of the groin 1998 - ANESTHESIA Hx Anesthesia: Yes Hx Anesthesia Reactions: No Meds Allergies/Adverse Reactions: Allergies Allergy/AdvReac Type Severity Reaction Status Date / Time No Known Allergies Allergy Verified 10/07/17 10:14 - Medications Medications: Current Medications Enoxaparin Sodium (Lovenox) 40 mg SC DAILY [facility] Last Admin: 10/09/17 09:57 Dose: 40 mg Glipizide (Glucotrol) 10 mg PO ACB [facility] Last Admin: 10/09/17 07:49 Dose: 10 mg Meropenem 1 gm/ Sodium (Chloride) 100 mls @ 100 mls/hr IVPB Q8H [facility] Last Admin: 10/09/17 12:57 Dose: 100 mls/hr Insulin Human Regular (Novolin R) 0 unit SC ACHS [facility] PRN Reason: Protocol Last Admin: 10/09/17 16:19 Dose: 10 unit Ketorolac Tromethamine (Toradol) 30 mg IVP Q6 PRN PRN Reason: Pain, moderate (4-7) Metformin HCl (Glucophage) 500 mg PO BIDAC [facility] Last Admin: 10/09/17 16:44 Dose: 500 mg Tamsulosin HCl (Flomax) 0.4 mg PO DAILY [facility] Last Admin: 10/09/17 09:57 Dose: 0.4 mg Physical Exam - Constitutional Appears: Non-toxic, Chronically Ill - Head Exam Head Exam: NORMOCEPHALIC - Eye Exam Eye Exam: PERRL. absent: Scleral icterus - ENT Exam ENT Exam: Mucous Membranes Dry, Normal External Ear Exam - Neck Exam Neck exam: Negative for: Lymphadenopathy - Respiratory Exam Respiratory Exam: Decreased Breath Sounds, Clear to Auscultation Bilateral - Cardiovascular Exam Cardiovascular Exam: REGULAR RHYTHM, +S1, +S2 - GI/Abdominal Exam GI & Abdominal Exam: Diminished Bowel Sounds, Distended, Soft. absent: Tenderness - Rectal Exam Rectal Exam: Deferred - Exam Exam: NORMAL INSPECTION - Extremities Exam Extremities exam: Negative for: pedal edema - Back Exam Back exam: absent: CVA tenderness (L), CVA tenderness (R) - Neurological Exam Neurological exam: Alert, CN II-XII Intact, Oriented x3, Reflexes Normal - Psychiatric Exam Psychiatric exam: Normal Mood - Skin Skin Exam: Dry Results - Vital Signs Recent Vital Signs: Last Vital Signs Temp 98.6 F 10/09/17 16:00 Pulse 100 H 10/09/17 02:00 Resp 18 10/09/17 16:00 BP 139/96 H 10/09/17 04:00 Pulse Ox 98 10/09/17 16:00 - Labs Result Diagrams: 10/08/17 06:26 10/08/17 06:59 Labs: Laboratory Results - last 24 hr 10/08/17 10/09/17 10/09/17 21:11 07:33 11:39 POC Glucose (mg/dL) 387 H 287 H 348 H 10/09/17 16:05 POC Glucose (mg/dL) 389 H Assessment & Plan (1) Hyperglycemia Status: Acute (2) Hyperosmolar non-ketotic state in patient with type 2 diabetes mellitus Status: Acute (3) UTI (urinary tract infection) Status: Acute - Assessment and Plan (Free Text) Assessment: cont iv rx contact iso discussed with Hernandez Camacho MD
--- NOTE | 2017-10-09 17:45 | CP.PCM.PN ---
Subjective - Date & Time of Evaluation Date of Evaluation: 10/09/17 Time of Evaluation: 12:00 - Subjective Subjective: clinically same Objective - Vital Signs/Intake and Output Vital Signs (last 24 hours): Temp Pulse Resp BP Pulse Ox 98.6 F 100 H 18 139/96 H 98 10/09/17 16:00 10/09/17 02:00 10/09/17 16:00 10/09/17 04:00 10/09/17 16:00 Intake and Output: 10/09/17 10/09/17 06:59 18:59 Intake Total 300 Output Total 400 Balance -100 - Medications Medications: Current Medications Enoxaparin Sodium (Lovenox) 40 mg SC DAILY [facility] Last Admin: 10/09/17 09:57 Dose: 40 mg Glipizide (Glucotrol) 10 mg PO ACB [facility] Last Admin: 10/09/17 07:49 Dose: 10 mg Meropenem 1 gm/ Sodium (Chloride) 100 mls @ 100 mls/hr IVPB Q8H [facility] Last Admin: 10/09/17 12:57 Dose: 100 mls/hr Insulin Human Regular (Novolin R) 0 unit SC ACHS [facility] PRN Reason: Protocol Last Admin: 10/09/17 16:19 Dose: 10 unit Ketorolac Tromethamine (Toradol) 30 mg IVP Q6 PRN PRN Reason: Pain, moderate (4-7) Metformin HCl (Glucophage) 500 mg PO BIDAC [facility] Last Admin: 10/09/17 16:44 Dose: 500 mg Tamsulosin HCl (Flomax) 0.4 mg PO DAILY [facility] Last Admin: 10/09/17 09:57 Dose: 0.4 mg - Labs Labs: 10/08/17 06:26 10/08/17 06:59 - Constitutional Appears: Well - Head Exam Head Exam: ATRAUMATIC, NORMAL INSPECTION, NORMOCEPHALIC - Eye Exam Eye Exam: EOMI, Normal appearance, PERRL Pupil Exam: NORMAL ACCOMODATION, PERRL - ENT Exam ENT Exam: Mucous Membranes Moist, Normal Exam - Neck Exam Neck Exam: Full ROM, Normal Inspection. absent: Lymphadenopathy - Respiratory Exam Respiratory Exam: Decreased Breath Sounds - Cardiovascular Exam Cardiovascular Exam: REGULAR RHYTHM, +S1, +S2 - GI/Abdominal Exam GI & Abdominal Exam: Soft, Diminished Bowel Sounds - Rectal Exam Rectal Exam: Deferred
[2017-10-10] MEDS: Meropenem 1 GM in Sodium Chloride 0.9% 100 ML IVPB SCH ×3 (05:30→21:05)
[2017-10-10] MEDS: (Novolin R) Insulin Human Regular 100 units/ml vial SC SCH ×4 (07:55→21:10)
[2017-10-10] MEDS: Enoxaparin 40 mg Syringe SC SCH (09:30)
[2017-10-10 09:35] LABS: BASO # 0.1 K/uL (0.0-0.2); BASO % 0.9 % (0.0-2.0); EOS # 0.3 K/uL (0.0-0.7); EOS % 2.3 % (0.0-4.0); HEMATOCRIT 32.9 % (35.0-51.0); LYMPH # 1.3 K/uL (1.0-4.3); LYMPH % 9.8 % (20.0-40.0); MEAN CELL VOLUME 83.7 fL (80.0-94.0); MEAN CORPUSCULAR HEMOGLOBIN 27.6 pg (27.0-31.0); MEAN CORPUSCULAR HGB CONC 32.9 g/dL (33.0-37.0); MEAN PLATELET VOLUME 8.6 fL (7.2-11.7); MONO # 0.8 K/uL (0.0-0.8); MONO % 6.5 % (0.0-10.0); PLATELET COUNT 403 K/uL (130-400); RED CELL DISTRIBUTION WIDTH 14.3 % (11.5-14.5)
[2017-10-10 09:46] LABS: BLOOD UREA NITROGEN 25 mg/dL (9-20); CALCIUM 8.8 mg/dl (8.6-10.4); CARBON DIOXIDE 26 mmol/L (22-30); CHLORIDE 100 mmol/L (98-107); GFR AFRICAN-AMERICAN > 60; GLUCOSE,RANDOM 340 mg/dL (75-110); POTASSIUM 3.7 mmol/L (3.6-5.2); SODIUM 135 mmol/L (132-148)
[2017-10-10 10:27] LABS: BASOPHIL 2 % (0-2); NEUTROPHIL 78 % (50-75); REACTIVE LYMPHOCYTES 1 % (0-0); TOTAL CELLS COUNTED 100
[2017-10-10 10:28] LABS: LARGE PLATELETS PRESENT
--- NOTE | 2017-10-10 17:17 | CP.PCM.PN ---
Subjective - Date & Time of Evaluation Date of Evaluation: 10/10/17 Time of Evaluation: 07:00 - Subjective Subjective: awake alert responsive NAD IV rx reordered Objective - Vital Signs/Intake and Output Vital Signs (last 24 hours): Temp Pulse Resp BP Pulse Ox 98.6 F 80 18 158/95 H 98 10/10/17 12:00 10/10/17 08:00 10/10/17 08:00 10/10/17 08:00 10/09/17 16:00 Intake and Output: 10/10/17 10/10/17 06:59 18:59 Intake Total 400 Output Total 300 Balance 100 - Medications Medications: Current Medications Enoxaparin Sodium (Lovenox) 40 mg SC DAILY [facility] Last Admin: 10/10/17 09:30 Dose: 40 mg Glipizide (Glucotrol) 10 mg PO ACB [facility] Last Admin: 10/10/17 07:56 Dose: 10 mg Meropenem 1 gm/ Sodium (Chloride) 100 mls @ 100 mls/hr IVPB Q8H [facility] Last Admin: 10/10/17 13:19 Dose: 100 mls/hr Insulin Glargine (Lantus) 14 unit SC HS [facility] Insulin Human Regular (Novolin R) 0 unit SC ACHS [facility] PRN Reason: Protocol Last Admin: 10/10/17 17:13 Dose: 6 unit Ketorolac Tromethamine (Toradol) 30 mg IVP Q6 PRN PRN Reason: Pain, moderate (4-7) Last Admin: 10/10/17 03:20 Dose: 30 mg Metformin HCl (Glucophage) 500 mg PO BIDAC [facility] Last Admin: 10/10/17 17:13 Dose: 500 mg Tamsulosin HCl (Flomax) 0.4 mg PO DAILY [facility] Last Admin: 10/10/17 09:30 Dose: 0.4 mg - Labs Labs: 10/10/17 09:26 10/10/17 09:26 - Constitutional Appears: Non-toxic, Chronically Ill - Head Exam Head Exam: NORMOCEPHALIC - Eye Exam Eye Exam: PERRL - ENT Exam ENT Exam: Mucous Membranes Dry - Neck Exam Neck Exam: absent: Lymphadenopathy - Respiratory Exam Respiratory Exam: Decreased Breath Sounds - Cardiovascular Exam Cardiovascular Exam: REGULAR RHYTHM - GI/Abdominal Exam GI & Abdominal Exam: Distended - Rectal Exam Rectal Exam: Deferred Assessment and Plan (1) Hyperglycemia Status: Acute (2) Hyperosmolar non-ketotic state in patient with type 2 diabetes mellitus Status: Acute (3) UTI (urinary tract infection) Status: Acute - Assessment and Plan (Free Text) Assessment: cont rx ESBL UTI/ sepsis
--- NOTE | 2017-10-10 19:33 | CP.PCM.PN ---
Subjective - Date & Time of Evaluation Date of Evaluation: 10/10/17 Time of Evaluation: 10:20 - Subjective Subjective: clinically same Objective - Vital Signs/Intake and Output Vital Signs (last 24 hours): Temp Pulse Resp BP Pulse Ox 97.9 F 76 20 135/84 98 10/10/17 16:00 10/10/17 16:00 10/10/17 16:00 10/10/17 16:00 10/09/17 16:00 Intake and Output: 10/10/17 10/11/17 18:59 06:59 Intake Total 900 Output Total 450 Balance 450 - Medications Medications: Current Medications Enoxaparin Sodium (Lovenox) 40 mg SC DAILY [facility] Last Admin: 10/10/17 09:30 Dose: 40 mg Glipizide (Glucotrol) 10 mg PO ACB [facility] Last Admin: 10/10/17 07:56 Dose: 10 mg Meropenem 1 gm/ Sodium (Chloride) 100 mls @ 100 mls/hr IVPB Q8H [facility] Last Admin: 10/10/17 13:19 Dose: 100 mls/hr Insulin Glargine (Lantus) 14 unit SC HS NADYA Insulin Human Regular (Novolin R) 0 unit SC ACHS NADYA PRN Reason: Protocol Last Admin: 10/10/17 17:13 Dose: 6 unit Ketorolac Tromethamine (Toradol) 30 mg IVP Q6 PRN PRN Reason: Pain, moderate (4-7) Last Admin: 10/10/17 03:20 Dose: 30 mg Metformin HCl (Glucophage) 500 mg PO BIDAC [facility] Last Admin: 10/10/17 17:13 Dose: 500 mg Tamsulosin HCl (Flomax) 0.4 mg PO DAILY [facility] Last Admin: 10/10/17 09:30 Dose: 0.4 mg - Labs Labs: 10/10/17 09:26 10/10/17 09:26 - Constitutional Appears: Well - Head Exam Head Exam: ATRAUMATIC, NORMAL INSPECTION, NORMOCEPHALIC - Eye Exam Eye Exam: EOMI, Normal appearance, PERRL Pupil Exam: NORMAL ACCOMODATION, PERRL - ENT Exam ENT Exam: Mucous Membranes Moist, Normal Exam - Neck Exam Neck Exam: Full ROM, Normal Inspection. absent: Lymphadenopathy - Respiratory Exam Respiratory Exam: Decreased Breath Sounds - Cardiovascular Exam Cardiovascular Exam: REGULAR RHYTHM, +S1, +S2 - GI/Abdominal Exam GI & Abdominal Exam: Soft, Diminished Bowel Sounds - Rectal Exam Rectal Exam: Deferred
[2017-10-10] MEDS ORDERED: (Lantus) Insulin Glargine, Recombinant SC SCH (22:00)
[2017-10-10 22:02] VITALS: RESP 20
[2017-10-11 00:47] VITALS: BP 140/86; PULSE 95; TEMP 98.3; O2SAT 97
--- NOTE | 2017-10-11 03:22 | CON ---
DATE: ENDOCRINOLOGY CONSULT LOCATION: Room 351. HISTORY OF PRESENT ILLNESS: This is a 67-year-old male with known history of type 2 diabetes, hypertension, presenting here with an ESBL urinary tract infection and concomitant diffuse abdominal pain with dysuria and polyuria, who is now being referred also for diabetic evaluation because of supervening hyperglycemic accelerations as noted thereof. PAST MEDICAL HISTORY: As mentioned above, history of type 2 diabetes, currently on a combination of metformin given as 500 mg b.i.d. with glipizide given as 10 mg daily. History of hypertensive cardiovascular disease and dyslipidemia. History of generalized anxiety and depression, on psychotropic medications as noted. History of non-Hodgkin's lymphoma with previous chemotherapy as noted. History of recurrent UTIs and also recent evaluation for BPH. FAMILY HISTORY: Positive for diabetes and hypertension. SOCIAL HISTORY: The patient has a supportive family. Admits to prior history of smoking. REVIEW OF SYSTEMS: As mentioned above, admits to generalized body weakness with easy fatigability and tiredness and suboptimal energy level. Also admits to bifrontal headaches, but no visual changes at this time. No chest pains, palpitations, or PNDs. His oral intake has been variable with nausea, dyspepsia, and vague upper abdominal pains. Also admits to recent polyuria, nocturia, and dysuria, worse on the day of admission. PHYSICAL EXAMINATION: GENERAL: This is an average-built male, in no apparent distress. VITAL SIGNS: Blood pressure of 140/80, pulse of 70 beats per minute and regular, temperature 99, respirations 20. Height is 5 feet 9 inches and weight is 176 pounds. HEENT: Head normocephalic. Eyes; anicteric with pink conjunctivae. Funduscopy is not possible at this time. Ears, nose and throat are otherwise normal. NECK: Supple. Thyroid gland is normal in size. No carotid bruits or any cervical adenopathy. CARDIOPULMONARY: Adynamic precordium. S1 and S2 is rapid and regular. LUNGS: Clear to auscultation. ABDOMEN: Flat, soft with positive bowel sounds. EXTREMITIES: No peripheral edema. Pulses are +2 bilaterally. LABORATORY DATA: The initial chemistry showed a BUN of 49, sodium 119, potassium 4.1, chloride 87, CO2 24, glucose 1179 mg/dL, creatinine 1.5. The initial glucose levels were over 500 as noted, and have since improved following the initiation of an insulin drip infusion as given. ASSESSMENT: This is a 67-year-old male with uncontrolled and decompensated type-2 insulin-requiring diabetes, presenting here with hyperosmolar hyperglycemic state with marked hyperglycemic accelerations and concomitant clinical and biochemical evidence of dehydration and prerenal azotemia with spurious hyponatremia. PLAN OF MANAGEMENT: As discussed with the patient and staff, we will optimize his metabolic control and switch him over to a more physiologic basal and bolus insulin-drug combination as ordered. We will increase the Lantus to 20 units subcu at bedtime daily, to start tonight. We will add NovoLog given as 6 units subcu t.i.d. before meals as ordered. We will titrate incrementally as indicated to optimize metabolic control. We will also modify the coverage scale to obviate hypoglycemia and detailed orders have been given. We will follow and advise accordingly. Kirsty Dangelo MD
[2017-10-11] MEDS ORDERED: (Novolog) Insulin Aspart, Recombinant 100 u/ml 10 ml vial SC SCH ×2 (07:30)
--- NOTE | 2017-10-11 15:02 | PN ---
DATE: ENDOCRINOLOGY FOLLOWUP NOTE LOCATION: Room 351. SUBJECTIVE: This is a 67-year-old male with recent uncontrolled type 1 insulin-dependent diabetes, presenting here with diabetic ketoacidosis and dehydration and since then improved clinically and metabolically as noted thereof. He received intensive insulin therapy with an insulin drip infusion and also vigorous IV hydration as given. However, the patient has very poor adherence to his insulin regimen when discharged from the hospital and would expect persistent hyperglycemic accelerations thereof. His glucose values today have ranged from 251 to 264 and 289 mg/dL. His latest chemistry shows a BUN of 25, sodium 135, potassium 3.7, chloride 100, CO2 of 26, glucose 340 and creatinine 1.0. Moreover, today early this morning, the patient insisted on going home despite all the discussions regarding the imperative need to continue and adjust his insulin regimen because of persistent hyperglycemic accelerations, but the patient was adamant and signed against medical advice for discharge early today as noted. He will follow with his medical doctor for outpatient diabetic management. We recommended the same basal and bolus insulin regimen as given with Levemir given as 34 units at bedtime and Humalog as 40 units subcu t.i.d. as given. We will titrate incrementally as indicated to optimize metabolic control. We will follow. Kirsty Dangelo MD
[2017-10-11] MEDS ORDERED: (Lantus) Insulin Glargine, Recombinant SC SCH (22:00)
== END 2017-10-11 02:22 | disposition left against medical advice (07) | DRG 193 ==
LOC: C.ER 10:10 → C.9E 18:19 → C.9I 19:51 → C.9E 19:58 → C.9I 20:11 → C.3T 10-10 21:50
PROVIDERS: ADMIT Internal Medicine Nephrology; ATTEND Internal Medicine Nephrology
DX: J18.9 Pneumonia, unspecified organism (principal); E11.00 Type 2 diabetes mellitus with hyperosmolarity without nonketotic hyperglycemic-hyperosmolar coma (NKHHC); C85.90 Non-Hodgkin lymphoma, unspecified, unspecified site; I11.9 Hypertensive heart disease without heart failure; E10.10 Type 1 diabetes mellitus with ketoacidosis without coma; E87.1 Hypo-osmolality and hyponatremia; N39.0 Urinary tract infection, site not specified; E78.5 Hyperlipidemia, unspecified; E86.0 Dehydration; F41.1 Generalized anxiety disorder; N40.0 Benign prostatic hyperplasia without lower urinary tract symptoms; Z16.12 Extended spectrum beta lactamase (ESBL) resistance; Z79.4 Long term (current) use of insulin; Z85.72 Personal history of non-Hodgkin lymphomas; Z87.440 Personal history of urinary (tract) infections; Z87.891 Personal history of nicotine dependence; Z92.21 Personal history of antineoplastic chemotherapy; K59.00 Constipation, unspecified

== ENCOUNTER 2017-11-02 17:59 | Inpatient (IN) | payer MEDICARE ==
[2017-11-02 18:13] VITALS: BMI 26.6
[2017-11-02 19:20] LABS: BASO # 0.1 K/uL (0.0-0.2); BASO % 0.5 % (0.0-2.0); EOS % 0.2 % (0.0-4.0); HEMOGLOBIN 10.1 g/dL (12.0-18.0); LYMPH # 0.9 K/uL (1.0-4.3); LYMPH % 4.2 % (20.0-40.0); MEAN CORPUSCULAR HEMOGLOBIN 27.6 pg (27.0-31.0); MEAN CORPUSCULAR HGB CONC 31.4 g/dL (33.0-37.0); MEAN PLATELET VOLUME 9.3 fL (7.2-11.7); MONO # 1.1 K/uL (0.0-0.8); MONO % 5.5 % (0.0-10.0); NEUT # 18.6 K/uL (1.8-7.0); NEUT % 89.6 % (50.0-75.0); PLATELET COUNT 314 K/uL (130-400); RBC 3.65 Mil/uL (4.40-5.90); RED CELL DISTRIBUTION WIDTH 14.3 % (11.5-14.5)
[2017-11-02 19:23] LABS: MEAN CELL VOLUME 87.9 fL (80.0-94.0); WHITE BLOOD COUNT 20.7 K/uL (4.8-10.8)
[2017-11-02] MEDS ORDERED: Sodium Chloride 0.9% 1,000 ML IV ONE ×2 (19:32→19:52)
--- NOTE | 2017-11-02 19:43 | C.PDOC ---
History Of Present Illness patient presents with elevated blood sugars for over a week. states he has been compliant with his medication as well as his diet. Blood sugar has been consistently over 500. No cp, palpitation, no f/c/n/v Time Seen by Provider: 11/02/17 19:31 Chief Complaint (Nursing): High Blood Sugar History Per: Patient History/Exam Limitations: no limitations Onset/Duration Of Symptoms: Days (7) Current Symptoms Are (Timing): Still Present Severity: Moderate Pain Scale Rating Of: 4 Current Diabetic Medications: Oral Medication Causative (Exacerbating) Factor(s): Other Associated Infectious Symptoms: Urinary Frequency. denies: Cough, Nausea, Diarrhea Treatment Prior To Provider Evaluation: None Recent travel outside of the [place]: No Additional History Per: Family Past Medical History Reviewed: Historical Data, Nursing Documentation, Vital Signs Vital Signs: Last Vital Signs Temp 98.7 F 11/02/17 18:20 Pulse 89 11/02/17 21:26 Resp 20 11/02/17 21:26 BP 125/59 L 11/02/17 21:26 Pulse Ox 94 L 11/02/17 21:26 - Medical History PMH: Anxiety, Depression, Diabetes, HTN Family History: States: No Known Family Hx - Social History Hx Tobacco Use: No (Former smoker) Hx Alcohol Use: No Hx Substance Use: No - Immunization History Hx Tetanus Toxoid Vaccination: Yes Hx Influenza Vaccination: Yes Hx Pneumococcal Vaccination: Yes Review Of Systems Constitutional: Negative for: Fever, Chills Eyes: Negative for: Redness ENT: Negative for: Throat Pain Cardiovascular: Negative for: Chest Pain Respiratory: Negative for: Shortness of Breath Gastrointestinal: Negative for: Nausea Genitourinary: Positive for: Frequency. Negative for: Dysuria Musculoskeletal: Negative for: Back Pain Skin: Negative for: Rash Neurological: Negative for: Weakness Psych: Negative for: Anxiety Physical Exam - Physical Exam Appears: Non-toxic, No Acute Distress Skin: Warm, Dry Head: Normacephalic Eye(s): bilateral: Normal Inspection Oral Mucosa: Dry Lips: Normal Appearing Neck: Supple Chest: Symmetrical Cardiovascular: Rhythm Regular Respiratory: No Rales, No Rhonchi, No Wheezing Gastrointestinal/Abdominal: Soft, No Tenderness, No Distention Back: No CVA Tenderness Extremity: Normal ROM Extremity: Bilateral: Atraumatic Pulses: Left Dorsalis Pedis: Normal, Right Dorsalis Pedis: Normal Neurological/Psych: Oriented x3, Normal Speech, Normal Cognition Gait: Steady ED Course And Treatment - Laboratory Results Result Diagrams: 11/02/17 19:17 11/02/17 19:17 ECG: Interpreted By Me, Viewed By Me ECG Rhythm: Nonspecific Changes O2 Sat by Pulse Oximetry: 95 Pulse Ox Interpretation: Normal - Radiology CXR: Interpreted by Me, Viewed By Me CXR Interpretation: No: Infiltrates, Fracture, Pnemothorax Progress Note: corrected sodium for glucose of 892 is 137 Disposition Discuss[address] With Dr.: Thuan Camacho Comment: accepted the pt on his service and took over the care at 9:20 PM Doctor Will See Patient In The: Hospital Counseled Patient/Family Regarding: Studies Performed, Diagnosis - Disposition Disposition: HOSPITALIZED Disposition Time: 21:40 Condition: FAIR Forms: [facility] (Kiswahili) - POA Present On Arrival: Poor Glycemic Control - Clinical Impression Clinical Impression: Hyperglycemia, Hyperosmolar non-ketotic state in patient with type 2 diabetes mellitus, Leukocytosis Decision To Admit - Pt Status Changed To: Hospital Disposition Of: Inpatient - Admit Certification Admit to Inpatient:: After my assessment, the patient will require hospitalization for at least two midnights. This is because of the severity of symptoms shown, intensity of services needed, and/or the medical risk in this patient being treated as an outpatient. - InPatient: Physician Admission Certification: I certify that this patient requires 2 or more midnights of care for the following reason:: After my assessment, the patient will require hospitalization for at least two midnights. This is because of the severity of symptoms shown, intensity of services needed, and/or the medical risk in this patient being treated as an outpatient. - . Bed Request Type: Telemetry Admitting Physician: Thuan Camacho Patient Diagnosis: Hyperglycemia, Hyperosmolar non-ketotic state in patient with type 2 diabetes mellitus, Leukocytosis
[2017-11-02 19:50] LABS: ALB/GLOB RATIO 0.9 (1.0-2.1); ALBUMIN 3.6 g/dL (3.5-5.0); ALT/SGPT 32 U/L (21-72); AST/SGOT 22 U/L (17-59); BLOOD UREA NITROGEN 37 mg/dL (9-20); CALCIUM 8.8 mg/dl (8.6-10.4); GFR AFRICAN-AMERICAN > 60; GFR NON-AFRICAN AMERICAN 50
[2017-11-02] MEDS ORDERED: (Novolin R) Insulin Human Regular 100 units/ml vial SC ONE ×3 (19:52→23:18)
[2017-11-02] MEDS ORDERED: (Novolin R) Insulin Human Regular 100 units/ml vial ONE ×3 (19:59→23:56)
[2017-11-02 20:02] LABS: LIPASE 54 U/L (23-300)
[2017-11-02 20:13] LABS: ARTERIAL BLOOD GAS HCO3 25.2 mmol/L (21-28); ARTERIAL BLOOD GAS O2 SAT 93.6 % (95-98); ARTERIAL BLOOD GAS PCO2 41 mm/Hg (35-45); ARTERIAL BLOOD GAS PO2 71 mm/Hg (80-100); ARTERIAL BLOOD GAS TCO2 26.7 mmol/L (22-28)
[2017-11-02 20:20] LABS: URINE BILIRUBIN NEGATIVE (NEGATIVE); URINE BLOOD NEGATIVE (NEGATIVE); URINE CLARITY Clear (Clear); URINE COLOR Yellow (YELLOW); URINE GLUCOSE (UA) 3+ mg/dL (Normal); URINE LEUKOCYTE ESTERASE NEG Leu/uL (Negative); URINE NITRATE NEGATIVE (NEGATIVE); URINE PROTEIN NEGATIVE (NEGATIVE); URINE UROBILINOGEN NORMAL mg/dL (0.2-1.0)
[2017-11-02 20:26] LABS: BASOPHIL 3 % (0-2); LYMPHOCYTE 3 % (20-40); MONOCYTE 3 % (0-10); NEUTROPHIL 91 % (50-75); PLATELET ESTIMATE NORMAL (NORMAL); TOTAL CELLS COUNTED 100
[2017-11-02 20:27] LABS: ANISOCYTOSIS SLIGHT; HYPOCHROMIC SLIGHT; POIKILOCYTOSIS SLIGHT
[2017-11-02] MEDS ORDERED: Sodium Chloride 0.9% 1,000 ML ONE (20:36)
[2017-11-02] MEDS ORDERED: Piperacillin/Tazobact 3.375 gm 100 ML IVPB STA (21:19)
[2017-11-02] MEDS ORDERED: Piperacillin/Tazobact 3.375 gm 100 ML IVPB ONE (22:07)
[2017-11-03] MEDS ORDERED: Piperacillin/Tazobact 3.375 GM in Sodium Chloride 100 ML IVPB SCH (00:15)
[2017-11-03] MEDS ORDERED: Sodium Chloride 0.9% 1,000 ML IV SCH (00:15)
[2017-11-03] MEDS ORDERED: Sodium Chloride 0.9% 1,000 ML ONE ×2 (01:05→12:55)
[2017-11-03] MEDS ORDERED: Dextrose 50% SYRINGE Inj (50 ml) IV STA (05:09)
[2017-11-03] MEDS ORDERED: Dextrose 50% VIAL Inj (50 ml) IV ONE (05:12)
[2017-11-03] MEDS: Piperacill/Tazo 3.375gm in Dex 3.375 GM/50 ML BAG IVPB SCH ×3 (06:01→22:02)
[2017-11-03] MEDS ORDERED: (Novolog) Insulin Aspart, Recombinant 100 u/ml 10 ml vial SC SCH (07:30)
--- NOTE | 2017-11-03 08:31 | RAD ---
Chest x-ray single frontal view History: Diabetic patient. Comparison: None available. Findings: Mild venous congestion. Elevated right hemidiaphragm. Degenerative changes in the spine with paravertebral osteophytes. Degenerative changes at the bilateral AC joints. Impression: Mild venous congestion.
[2017-11-03] MEDS: Enoxaparin 40 mg Syringe SC SCH (10:02)
[2017-11-03] MEDS: Sodium Chloride 0.9% 1,000 ML IV SCH ×2 (11:01→21:26)
[2017-11-03] MEDS ORDERED: (Novolog) Insulin Aspart, Recombinant 100 u/ml 10 ml vial ONE ×3 (12:55→21:57)
[2017-11-03] MEDS: (Novolog) Insulin Aspart, Recombinant 100 u/ml 10 ml vial SC SCH ×4 (12:57→21:49)
[2017-11-03] MEDS ORDERED: (Lantus) Insulin Glargine, Recombinant SC ONE ×2 (18:00→22:07)
--- NOTE | 2017-11-03 18:57 | CP.PCM.HP ---
Past Patient History - Past Medical History & Family History Past Medical History?: Yes - Past Social History Smoking Status: Former Smoker - CARDIAC Hx Hypertension: Yes - ENDOCRINE/METABOLIC Hx Diabetes Mellitus Type 1: Yes (2014) - HEMATOLOGICAL/ONCOLOGICAL Other/Comment: non hodgkins lymphoma - INTEGUMENTARY Other/Comment: Non Hodgekins Lymphoma - MUSCULOSKELETAL/RHEUMATOLOGICAL Hx Falls: Yes - GENITOURINARY/GYNECOLOGICAL Hx Prostate Problems: Yes - PSYCHIATRIC Hx Anxiety: Yes Hx Depression: Yes Hx Substance Use: No - SURGICAL HISTORY Other/Comment: biopsy of the groin 1998 - ANESTHESIA Hx Anesthesia: Yes Hx Anesthesia Reactions: No Meds Allergies/Adverse Reactions: Allergies Allergy/AdvReac Type Severity Reaction Status Date / Time No Known Allergies Allergy Verified 11/02/17 18:10 Physical Exam - Constitutional Appears: Well - Head Exam Head Exam: ATRAUMATIC, NORMAL INSPECTION, NORMOCEPHALIC - Eye Exam Eye Exam: EOMI, Normal appearance, PERRL Pupil Exam: NORMAL ACCOMODATION, PERRL - ENT Exam ENT Exam: Mucous Membranes Moist, Normal Exam - Neck Exam Neck exam: Positive for: Normal Inspection - Respiratory Exam Respiratory Exam: Decreased Breath Sounds - Cardiovascular Exam Cardiovascular Exam: REGULAR RHYTHM, +S1, +S2 - GI/Abdominal Exam GI & Abdominal Exam: Diminished Bowel Sounds, Soft - Rectal Exam Rectal Exam: Deferred Results - Vital Signs Recent Vital Signs: Last Vital Signs Temp 98.5 F 11/03/17 07:40 Pulse 83 11/03/17 11:03 Resp 20 11/03/17 11:03 BP 118/65 11/03/17 11:03 Pulse Ox 94 L 11/03/17 11:03 - Labs Result Diagrams: 11/02/17 19:17 11/02/17 19:17 Labs: Laboratory Results - last 24 hr 11/02/17 11/02/17 11/02/17 19:17 19:17 19:52 WBC 20.7 H D RBC 3.65 L Hgb 10.1 L Hct 32.0 L MCV 87.9 D MCH 27.6 MCHC 31.4 L RDW 14.3 Plt Count 314 MPV 9.3 Neut % (Auto) 89.6 H Lymph % (Auto) 4.2 L [place] % (Auto) 5.5 Eos % (Auto) 0.2 Baso % (Auto) 0.5 Neut # 18.6 H Lymph # 0.9 L [place] # 1.1 H Eos # 0.0 Baso # 0.1 Neutrophils % (Manual) 91 H Lymphocytes % (Manual) 3 L Monocytes % (Manual) 3 Basophils % (Manual) 3 H Platelet Estimate Normal Hypochromasia (manual) Slight Poikilocytosis (manual Slight Anisocytosis (manual) Slight Puncture Site pCO2 pO2 HCO3 ABG pH ABG Total CO2 ABG O2 Saturation ABG Base Excess Mega Test ABG Potassium A-a O2 Difference Respiratory Index Glucose Lactate Liter Flow FiO2 Crit Value Called To Crit Value Called By Crit Value Read Back Blood Gas Notified Time Sodium 118 L* Potassium 4.8 Chloride 81 L Carbon Dioxide 28 Anion Gap 14 BUN 37 H Creatinine 1.4 Est GFR ( Amer) > 60 Est GFR (Non-Af Amer) 50 POC Glucose (mg/dL) Random Glucose 892 H* D Calcium 8.8 Total Bilirubin 0.7 AST 22 ALT 32 Alkaline Phosphatase 117 Total Protein 7.5 Albumin 3.6 Globulin 3.9 Albumin/Globulin Ratio 0.9 L Lipase 54 Arterial Blood Potassium Urine Color Urine Clarity Urine pH Ur Specific [place] Urine Protein Urine Glucose (UA) Urine Ketones Urine Blood Urine Nitrate Urine Bilirubin Urine Urobilinogen Ur Leukocyte Esterase Urine RBC (Auto) Serum Ketones Negative 11/02/17 11/02/17 11/02/17 20:02 20:07 21:18 WBC RBC Hgb Hct MCV MCH MCHC RDW Plt Count MPV Neut % (Auto) Lymph % (Auto) [place] % (Auto) Eos % (Auto) Baso % (Auto) Neut # Lymph # [place] # Eos # Baso # Neutrophils % (Manual) Lymphocytes % (Manual) Monocytes % (Manual) Basophils % (Manual) Platelet Estimate Hypochromasia (manual) Poikilocytosis (manual Anisocytosis (manual) Puncture Site Rba pCO2 41 pO2 71 L HCO3 25.2 ABG pH 7.40 ABG Total CO2 26.7 ABG O2 Saturation 93.6 L ABG Base Excess 0.5 Mega Test Na ABG Potassium 4.3 A-a O2 Difference 27.0 Respiratory Index 0.4 Glucose > 750 H* Lactate 1.2 Liter Flow 0 FiO2 21.0 Crit Value Called To Aubree ho rn Crit Value Called By Gonzalo Crit Value Read Back Y Blood Gas Notified Time 2011 Sodium 127.0 L Potassium Chloride 92.0 L Carbon Dioxide Anion Gap BUN Creatinine Est GFR ( Amer) Est GFR (Non-Af Amer) POC Glucose (mg/dL) 487 H* Random Glucose Calcium Total Bilirubin AST ALT Alkaline Phosphatase Total Protein Albumin Globulin Albumin/Globulin Ratio Lipase Arterial Blood Potassium 4.3 Urine Color Yellow Urine Clarity Clear Urine pH 5.0 Ur Specific [place] 1.022 Urine Protein Negative Urine Glucose (UA) 3+ H Urine Ketones Negative Urine Blood Negative Urine Nitrate Negative Urine Bilirubin Negative Urine Urobilinogen Normal Ur Leukocyte Esterase Neg Urine RBC (Auto) < 1 Serum Ketones 11/02/17 11/03/17 11/03/17 22:52 01:09 03:20 WBC RBC Hgb Hct MCV MCH MCHC RDW Plt Count MPV Neut % (Auto) Lymph % (Auto) [place] % (Auto) Eos % (Auto) Baso % (Auto) Neut # Lymph # [place] # Eos # Baso # Neutrophils % (Manual) Lymphocytes % (Manual) Monocytes % (Manual) Basophils % (Manual) Platelet Estimate Hypochromasia (manual) Poikilocytosis (manual Anisocytosis (manual) Puncture Site pCO2 pO2 HCO3 ABG pH ABG Total CO2 ABG O2 Saturation ABG Base Excess Mega Test ABG Potassium A-a O2 Difference Respiratory Index Glucose Lactate Liter Flow FiO2 Crit Value Called To Crit Value Called By Crit Value Read Back Blood Gas Notified Time Sodium Potassium Chloride Carbon Dioxide Anion Gap BUN Creatinine Est GFR ( Amer) Est GFR (Non-Af Amer) POC Glucose (mg/dL) 495 H* 374 H 149 H Random Glucose Calcium Total Bilirubin AST ALT Alkaline Phosphatase Total Protein Albumin Globulin Albumin/Globulin Ratio Lipase Arterial Blood Potassium Urine Color Urine Clarity Urine pH Ur Specific [place] Urine Protein Urine Glucose (UA) Urine Ketones Urine Blood Urine Nitrate Urine Bilirubin Urine Urobilinogen Ur Leukocyte Esterase Urine RBC (Auto) Serum Ketones 11/03/17 11/03/17 11/03/17 05:06 06:30 07:40 WBC RBC Hgb Hct MCV MCH MCHC RDW Plt Count MPV Neut % (Auto) Lymph % (Auto) [place] % (Auto) Eos % (Auto) Baso % (Auto) Neut # Lymph # [place] # Eos # Baso # Neutrophils % (Manual) Lymphocytes % (Manual) Monocytes % (Manual) Basophils % (Manual) Platelet Estimate Hypochromasia (manual) Poikilocytosis (manual Anisocytosis (manual) Puncture Site pCO2 pO2 HCO3 ABG pH ABG Total CO2 ABG O2 Saturation ABG Base Excess Mega Test ABG Potassium A-a O2 Difference Respiratory Index Glucose Lactate Liter Flow FiO2 Crit Value Called To Crit Value Called By Crit Value Read Back Blood Gas Notified Time Sodium Potassium Chloride Carbon Dioxide Anion Gap BUN Creatinine Est GFR ( Amer) Est GFR (Non-Af Amer) POC Glucose (mg/dL) 58 L 83 115 H Random Glucose Calcium Total Bilirubin AST ALT Alkaline Phosphatase Total Protein Albumin Globulin Albumin/Globulin Ratio Lipase Arterial Blood Potassium Urine Color Urine Clarity Urine pH Ur Specific [place] Urine Protein Urine Glucose (UA) Urine Ketones Urine Blood Urine Nitrate Urine Bilirubin Urine Urobilinogen Ur Leukocyte Esterase Urine RBC (Auto) Serum Ketones 11/03/17 11/03/17 11/03/17 09:32 12:04 17:23 WBC RBC Hgb Hct MCV MCH MCHC RDW Plt Count MPV Neut % (Auto) Lymph % (Auto) [place] % (Auto) Eos % (Auto) Baso % (Auto) Neut # Lymph # [place] # Eos # Baso # Neutrophils % (Manual) Lymphocytes % (Manual) Monocytes % (Manual) Basophils % (Manual) Platelet Estimate Hypochromasia (manual) Poikilocytosis (manual Anisocytosis (manual) Puncture Site pCO2 pO2 HCO3 ABG pH ABG Total CO2 ABG O2 Saturation ABG Base Excess Mega Test ABG Potassium A-a O2 Difference Respiratory Index Glucose Lactate Liter Flow FiO2 Crit Value Called To Crit Value Called By Crit Value Read Back Blood Gas Notified Time Sodium Potassium Chloride Carbon Dioxide Anion Gap BUN Creatinine Est GFR ( Amer) Est GFR (Non-Af Amer) POC Glucose (mg/dL) 188 H 343 H 345 H Random Glucose Calcium Total Bilirubin AST ALT Alkaline Phosphatase Total Protein Albumin Globulin Albumin/Globulin Ratio Lipase Arterial Blood Potassium Urine Color Urine Clarity Urine pH Ur Specific [place] Urine Protein Urine Glucose (UA) Urine Ketones Urine Blood Urine Nitrate Urine Bilirubin Urine Urobilinogen Ur Leukocyte Esterase Urine RBC (Auto) Serum Ketones
[2017-11-03 20:43] LABS: BASO # 0.1 K/uL (0.0-0.2); BASO % 0.6 % (0.0-2.0); EOS # 0.1 K/uL (0.0-0.7); EOS % 0.5 % (0.0-4.0); HEMOGLOBIN 8.9 g/dL (12.0-18.0); LYMPH # 0.9 K/uL (1.0-4.3); LYMPH % 4.8 % (20.0-40.0); MEAN CELL VOLUME 83.3 fL (80.0-94.0); MEAN CORPUSCULAR HEMOGLOBIN 27.2 pg (27.0-31.0); MEAN CORPUSCULAR HGB CONC 32.6 g/dL (33.0-37.0); MEAN PLATELET VOLUME 8.7 fL (7.2-11.7); MONO # 1.2 K/uL (0.0-0.8); MONO % 6.1 % (0.0-10.0); NEUT # 16.9 K/uL (1.8-7.0); PLATELET COUNT 312 K/uL (130-400); RBC 3.29 Mil/uL (4.40-5.90); RED CELL DISTRIBUTION WIDTH 14.2 % (11.5-14.5); WHITE BLOOD COUNT 19.2 K/uL (4.8-10.8)
[2017-11-03 20:56] LABS: ALB/GLOB RATIO 0.8 (1.0-2.1); ALBUMIN 3.1 g/dL (3.5-5.0); ALT/SGPT 35 U/L (21-72); AST/SGOT 24 U/L (17-59); BLOOD UREA NITROGEN 25 mg/dL (9-20); CALCIUM 8.1 mg/dl (8.6-10.4); GFR AFRICAN-AMERICAN > 60; GFR NON-AFRICAN AMERICAN 55
[2017-11-03 21:34] LABS: LYMPHOCYTE 5 % (20-40); MONOCYTE 5 % (0-10); MYELOCYTE 1 % (0-0); NEUTROPHIL 89 % (50-75); TOTAL CELLS COUNTED 100
[2017-11-03 21:35] LABS: HYPOCHROMIC SLIGHT; PLATELET ESTIMATE NORMAL (NORMAL); POLYCHROMIC SLIGHT
[2017-11-03] MEDS ORDERED: (Lantus) Insulin Glargine, Recombinant SC SCH (22:00)
[2017-11-03] MEDS: Rosuvastatin Calcium 2.5 mg Tab PO SCH (22:01)
--- NOTE | 2017-11-03 23:32 | CON ---
DATE: ENDOCRINOLOGY CONSULT LOCATION: In ER holding. HISTORY OF PRESENT ILLNESS: This is a 67-year-old male with known history of type 2 diabetes and hypertension, presenting here with generalized body weakness and supervening marked hyperglycemic acceleration for over a week as noted at home and is now being referred for diabetic evaluation and management. PAST MEDICAL HISTORY: As mentioned above, history of type 2 diabetes on oral hypoglycemic drug therapy as given. He is apparently only using at this time metformin given as 500 mg b.i.d. and glipizide as 10 mg b.i.d. as ordered. History of hypertensive cardiovascular disease and dyslipidemia, history of a prior non-Hodgkin's lymphoma and received chemo at that time, also history of generalized anxiety and depression, apparently on psychotropic medications as given. FAMILY HISTORY: Positive for hypertension and diabetes. SOCIAL HISTORY: The patient has supportive family. No known substance use. REVIEW OF SYSTEMS: As mentioned above, admits to generalized body weakness with episodic bouts of dizziness and lightheadedness, worse on the day of admission. No chest pains or palpitations or PNDs, but admits to episodic shortness of breath, especially on exertion. His oral intake has been variable with nausea, dyspepsia and vague upper abdominal pains with marked polyuria, nocturia, and polydipsia, and about a 5-pound or so weight loss. PHYSICAL EXAMINATION: GENERAL: An average built male, in no apparent distress. VITAL SIGNS: Blood pressure 140/80, pulse of 70 beats per minute, regular, temperature 99, respirations 20. Height is 5 feet 9 inches, weight is 180 pounds. HEENT: Head normocephalic. Eyes anicteric with pink conjunctivae. Funduscopy not possible at this time. Ears, nose, and throat otherwise normal. NECK: Supple. Thyroid gland is normal in size. No carotid bruits or cervical adenopathy. CARDIOPULMONARY: Adynamic precordium. S1, S2 is rapid and regular. LUNGS: Clear to auscultation. ABDOMEN: Flat, soft with positive bowel sounds. EXTREMITIES: No peripheral edema. Pulses are +2 bilaterally. LABORATORY DATA: The initial chemistry showed a BUN of 37, sodium 118, potassium 4.8, chloride 81, CO2 of 28, glucose 892, and creatinine 1.4. His glucose levels have ranged from 495 to over 500 mg/dL. He was actually given a big dose of regular insulin at bedtime with expected bag turner hypoglycemia and a glucose level of 58 mg/dL. The latest glucose levels now are over 300 mg/dL at lunchtime as noted and expected. ASSESSMENT: This is a 67-year-old male with uncontrolled and decompensated type-2 insulin-requiring diabetes, presenting here with hyperosmolar hyperglycemic state and dehydration with spurious hyponatremia and prerenal azotemia and dehydration as expected thereof. PLAN OF MANAGEMENT: We will modify his current insulin regimen and switch him over to a more physiologic basal and bolus insulin-drug combination with Lantus to be given as 12 units subcutaneous at bedtime daily, to start tonight. We will also add NovoLog given as 6 units subcutaneous t.i.d. before meals to start at lunchtime today as ordered. We will titrate incrementally as indicated to optimize metabolic control. We will also restart his oral hypoglycemic therapy with metformin given as 500 mg b.i.d. and glipizide at 10 mg b.i.d. before meals as ordered. We will titrate incrementally as indicated to optimize metabolic control. We will obtain serial chemistries and supplement accordingly as needed. We will follow with you. Kirsty Dangelo MD
--- NOTE | 2017-11-04 00:04 | CARD ---
APPROVED REPORT EKG Measurement Heart [id number] <Conclusion> Normal sinus rhythm with sinus arrhythmia Nonspecific T wave abnormality Abnormal ECG
[2017-11-04] MEDS: Piperacill/Tazo 3.375gm in Dex 3.375 GM/50 ML BAG IVPB SCH ×3 (05:24→21:29)
[2017-11-04] MEDS: (Novolog) Insulin Aspart, Recombinant 100 u/ml 10 ml vial SC SCH ×8 (07:50→21:34)
--- NOTE | 2017-11-04 08:41 | CP.PCM.PN ---
Subjective - Date & Time of Evaluation Date of Evaluation: 11/04/17 Time of Evaluation: 12:20 - Subjective Subjective: clinically same Objective - Vital Signs/Intake and Output Vital Signs (last 24 hours): Temp Pulse Resp BP Pulse Ox 99.9 F H 96 H 23 131/79 93 L 11/04/17 04:11 11/04/17 04:11 11/04/17 04:11 11/04/17 04:11 11/04/17 04:11 Intake and Output: 11/04/17 11/04/17 06:59 18:59 Intake Total 500 Output Total 400 Balance 100 - Medications Medications: Current Medications Aspirin (Ecotrin) 81 mg PO DAILY [facility] Ezetimibe (Zetia) 10 mg PO DAILY [facility] Enoxaparin Sodium (Lovenox) 40 mg SC DAILY [facility] Last Admin: 11/03/17 10:02 Dose: 40 mg Gabapentin (Neurontin) 800 mg PO TID [facility] Glipizide (Glucotrol) 10 mg PO DAILY [facility] Hydromorphone HCl (Dilaudid) 1 mg IVP Q6 PRN PRN Reason: Pain, moderate (4-7) Last Admin: 11/04/17 06:57 Dose: 1 mg Piperacillin Sod/Tazobactam Sod (Zosyn 3.375 Gm Iv Premix) 3.375 gm in 50 mls @ 100 mls/hr IVPB Q8H [facility] Last Admin: 11/04/17 05:24 Dose: 100 mls/hr Sodium Chloride (Sodium Chloride 0.9%) 1,000 mls @ 100 mls/hr IV .Q10H [facility] Last Admin: 11/03/17 21:26 Dose: 100 mls/hr Insulin Aspart (Novolog) 0 unit SC ACHS [facility] PRN Reason: Protocol Last Admin: 11/03/17 21:49 Dose: 5 unit Insulin Aspart (Novolog) 6 unit SC AC [facility] Last Admin: 11/03/17 18:12 Dose: 6 unit Insulin Glargine (Lantus) 12 unit SC HS [facility] Last Admin: 11/03/17 22:08 Dose: 12 unit Losartan Potassium (Cozaar) 50 mg PO DAILY [facility] Metformin HCl (Glucophage) 500 mg PO BIDAC [facility] Montelukast Sodium (Singulair) 10 mg PO DAILY [facility] Pregabalin (Lyrica) 50 mg PO DAILY [facility] Rosuvastatin Calcium (Crestor) 2.5 mg PO [facility] Last Admin: 11/03/17 22:01 Dose: 2.5 mg Sertraline HCl (Zoloft) 50 mg PO DAILY [facility] Sertraline HCl (Zoloft) 100 mg PO DAILY [facility] Trazodone HCl (Desyrel) 100 mg PO DAILY [facility] - Labs Labs: 11/03/17 20:38 11/03/17 20:38
[2017-11-04] MEDS: Sodium Chloride 0.9% 1,000 ML IV SCH ×2 (09:00→18:36)
[2017-11-04] MEDS: Enoxaparin 40 mg Syringe SC SCH (10:00)
--- NOTE | 2017-11-04 11:27 | CP.PCM.CON ---
History of Present Illness - History of Present Illness History of Present Illness: Hyperglycemia, Hyperosmolar non-ketotic state in patient with type 2 diabetes mellitus, Leukocytosis iv rx in progress await cultures full consult to follow Review of Systems - Constitutional Constitutional: As Per HPI - EENT Eyes: absent: As Per HPI, Blind Spots, Blurred Vision, Change in Vision, Decreased Night Vision, Diplopia, Discharge, Dry Eye, Exophthalmos, Floaters, Irritation, Itchy Eyes, Loss of Peripheral Vision, Pain, Photophobia, Requires Corrective Lenses, Sees Flashes, Spots in Vision, Tunnel Vision, Other Visual Disturbances, Loss of Vision, Other Ears: absent: As Per HPI, Decreased Hearing, Ear Discharge, Ear Pain, Tinnitus, Abnormal Hearing, Disequilibrium, Dizziness, Other Nose/Mouth/Throat: absent: As Per HPI, Epistaxis, Nasal Congestion, Nasal Discharge, Nasal Obstruction, Nasal Trauma, Nose Pain, Post Nasal Drip, Sinus Pain, Sinus Pressure, Bleeding Gums, Change in Voice, Dental Pain, Dry Mouth, Dysphagia, Halitosis, Hoarsness, Lip Swelling, Mouth Lesions, Mouth Pain, Odynophagia, Sore Throat, Throat Swelling, Tongue Swelling, Facial Pain, Neck Pain, Neck Mass, Other - Cardiovascular Cardiovascular: As Per HPI - Respiratory Respiratory: As Per HPI - Genitourinary Genitourinary: absent: As Per HPI, Change in Urinary Stream, Difficulty Urinating, Dysuria, Flank Pain, Hematuria, Pyuria, Nocturia, Urinary Incontinence, Urinary Frequency, Urinary Hesitance, Urinary Urgency, Voiding Freq/Small Amts, Freq UTI, Hx Renal/Bladder Calculi, Hx /Renal Surgery, Bladder Distension, Other - Musculoskeletal Musculoskeletal: absent: As Per HPI, Abnormal Gait, Arthralgias, Atrophy, Back Pain, Deformity, Joint Swelling, Limited Range of Motion, Loss of Height, Muscle Cramps, Muscle Weakness, Myalgias, Neck Pain, Numbness, Radiating Pain into Limb, Stiffness, Tingling, Other - Integumentary Integumentary: absent: As Per HPI, Acne, Alopecia, Bleeding Lesions, Change in Hair, Change in Nails, Change in Pigmentation, Changing Lesions, Dry Skin, Erythema, Furuncle, Hirsutism, Lesions, New Lesions, Non-Healing Lesions, Photosensitivity, Pruritus, Rash, Skin Pain, Skin Ulcer, Sores, Striae, Swelling , Unusual Bruising, Wounds, Jaundice, Other - Neurological Neurological: As Per HPI - Psychiatric Psychiatric: absent: As Per HPI, Abnormal Sleep Pattern, Anhedonia, Anxiety, Auditory Hallucinations, Behavioral Changes, Change in Appetite, Change in Libido, Confusion, Depression, Difficulty Concentrating, Hallucinations, Homicidal Ideation, Hopelessness, Irritability, Memory Loss, Mood Swings, Panic Attacks, Paranoia, Suicidal Ideation, Visual Hallucinations, Tactile Hallucinations, Other - Endocrine Endocrine: absent: As Per HPI, Change in Body Appearance, Change in Libido, Cold Intolorance, Deepening of Voice, Excessive Sweating, Fatigue, Flushing, Heat Intolorance, Increase in Ring/Shoe/Hat Size, Palpitations, Polydipsia, Polyphagia, Polyuria, Other - Hematologic/Lymphatic Hematologic: absent: As Per HPI, Easy Bleeding, Easy Bruising, Lymphadenopathy, Other Past Patient History - Past Medical History & Family History Past Medical History?: Yes - Past Social History Smoking Status: Former Smoker - CARDIAC Hx Hypertension: Yes - ENDOCRINE/METABOLIC Hx Diabetes Mellitus Type 1: Yes (2014) - HEMATOLOGICAL/ONCOLOGICAL Other/Comment: non hodgkins lymphoma - INTEGUMENTARY Other/Comment: NonHodgkins Lymphoma - MUSCULOSKELETAL/RHEUMATOLOGICAL Hx Falls: No - GENITOURINARY/GYNECOLOGICAL Hx Prostate Problems: Yes - PSYCHIATRIC Hx Anxiety: Yes Hx Depression: Yes Hx Substance Use: No - SURGICAL HISTORY Other/Comment: biopsy of the groin 1998 - ANESTHESIA Hx Anesthesia: Yes Hx Anesthesia Reactions: No Meds Allergies/Adverse Reactions: Allergies Allergy/AdvReac Type Severity Reaction Status Date / Time No Known Allergies Allergy Verified 11/02/17 18:10 - Medications Medications: Current Medications Aspirin (Ecotrin) 81 mg PO DAILY [facility] Last Admin: 11/04/17 09:10 Dose: 81 mg Ezetimibe (Zetia) 10 mg PO DAILY [facility] Last Admin: 11/04/17 09:13 Dose: 10 mg Enoxaparin Sodium (Lovenox) 40 mg SC DAILY [facility] Last Admin: 11/03/17 10:02 Dose: 40 mg Gabapentin (Neurontin) 800 mg PO TID [facility] Last Admin: 11/04/17 08:59 Dose: 800 mg Glipizide (Glucotrol) 10 mg PO DAILY [facility] Hydromorphone HCl (Dilaudid) 1 mg IVP Q6 PRN PRN Reason: Pain, moderate (4-7) Last Admin: 11/04/17 06:57 Dose: 1 mg Piperacillin Sod/Tazobactam Sod (Zosyn 3.375 Gm Iv Premix) 3.375 gm in 50 mls @ 100 mls/hr IVPB Q8H [facility] Last Admin: 11/04/17 05:24 Dose: 100 mls/hr Sodium Chloride (Sodium Chloride 0.9%) 1,000 mls @ 100 mls/hr IV .Q10H [facility] Last Admin: 11/04/17 09:00 Dose: 100 mls/hr Insulin Aspart (Novolog) 0 unit SC ACHS [facility] PRN Reason: Protocol Last Admin: 11/04/17 07:55 Dose: 6 unit Insulin Aspart (Novolog) 12 unit SC AC [facility] Insulin Glargine (Lantus) 24 unit SC HS [facility] Losartan Potassium (Cozaar) 50 mg PO DAILY [facility] Last Admin: 11/04/17 09:22 Dose: 50 mg Metformin HCl (Glucophage) 500 mg PO BIDAC [facility] Last Admin: 11/04/17 08:50 Dose: 500 mg Montelukast Sodium (Singulair) 10 mg PO DAILY [facility] Pregabalin (Lyrica) 50 mg PO DAILY [facility] Rosuvastatin Calcium (Crestor) 2.5 mg PO HS [facility] Last Admin: 11/03/17 22:01 Dose: 2.5 mg Sertraline HCl (Zoloft) 50 mg PO DAILY [facility] Last Admin: 11/04/17 09:24 Dose: 50 mg Sertraline HCl (Zoloft) 100 mg PO DAILY [facility] Trazodone HCl (Desyrel) 100 mg PO DAILY [facility] Last Admin: 11/04/17 09:01 Dose: 100 mg Physical Exam - Constitutional Appears: Chronically Ill - Head Exam Head Exam: ATRAUMATIC, NORMOCEPHALIC - Eye Exam Eye Exam: EOMI, PERRL. absent: Scleral icterus - ENT Exam ENT Exam: Mucous Membranes Dry - Neck Exam Neck exam: Negative for: Lymphadenopathy - Respiratory Exam Respiratory Exam: Decreased Breath Sounds, Rhonchi - Cardiovascular Exam Cardiovascular Exam: REGULAR RHYTHM, +S1, +S2 - GI/Abdominal Exam GI & Abdominal Exam: Diminished Bowel Sounds, Soft. absent: Tenderness - Rectal Exam Rectal Exam: Deferred - Exam Exam: NORMAL INSPECTION - Extremities Exam Extremities exam: Negative for: pedal edema - Back Exam Back exam: absent: CVA tenderness (L), CVA tenderness (R), paraspinal tenderness , rash noted, tenderness - Neurological Exam Neurological exam: Alert, CN II-XII Intact, Oriented x3, Reflexes Normal - Psychiatric Exam Psychiatric exam: Anxious - Skin Skin Exam: Dry Results - Vital Signs Recent Vital Signs: Last Vital Signs Temp 98.2 F 11/04/17 08:11 Pulse 96 H 11/04/17 09:26 Resp 19 11/04/17 08:11 BP 140/80 11/04/17 08:11 Pulse Ox 93 L 11/04/17 04:11 - Labs Result Diagrams: 11/05/17 10:18 11/05/17 10:18 Labs: Laboratory Results - last 24 hr 11/03/17 11/03/17 11/03/17 09:32 12:04 17:23 WBC RBC Hgb Hct MCV MCH MCHC RDW Plt Count MPV Neut % (Auto) Lymph % (Auto) [place] % (Auto) Eos % (Auto) Baso % (Auto) Neut # Lymph # [place] # Eos # Baso # Neutrophils % (Manual) Lymphocytes % (Manual) Monocytes % (Manual) Myelocytes % Platelet Estimate Polychromasia Hypochromasia (manual) Sodium Potassium Chloride Carbon Dioxide Anion Gap BUN Creatinine Est GFR ( Amer) Est GFR (Non-Af Amer) POC Glucose (mg/dL) 188 H 343 H 345 H Random Glucose Calcium Total Bilirubin AST ALT Alkaline Phosphatase Total Protein Albumin Globulin Albumin/Globulin Ratio Influenza Typ A,B (EIA) 11/03/17 11/03/17 11/03/17 19:33 20:38 20:38 WBC 19.2 H RBC 3.29 L Hgb 8.9 L Hct 27.4 L MCV 83.3 D MCH 27.2 MCHC 32.6 L RDW 14.2 Plt Count 312 MPV 8.7 Neut % (Auto) 88.0 H Lymph % (Auto) 4.8 L [place] % (Auto) 6.1 Eos % (Auto) 0.5 Baso % (Auto) 0.6 Neut # 16.9 H Lymph # 0.9 L [place] # 1.2 H Eos # 0.1 Baso # 0.1 Neutrophils % (Manual) 89 H Lymphocytes % (Manual) 5 L Monocytes % (Manual) 5 Myelocytes % 1 H Platelet Estimate Normal Polychromasia Slight Hypochromasia (manual) Slight Sodium 127 L Potassium 4.0 Chloride 91 L Carbon Dioxide 28 Anion Gap 11 BUN 25 H Creatinine 1.3 Est GFR ( Amer) > 60 Est GFR (Non-Af Amer) 55 POC Glucose (mg/dL) 332 H Random Glucose 330 H Calcium 8.1 L Total Bilirubin 0.4 AST 24 ALT 35 Alkaline Phosphatase 83 Total Protein 6.8 Albumin 3.1 L Globulin 3.8 Albumin/Globulin Ratio 0.8 L Influenza Typ A,B (EIA) 11/03/17 11/04/17 11/04/17 21:22 01:30 02:27 WBC RBC Hgb Hct MCV MCH MCHC RDW Plt Count MPV Neut % (Auto) Lymph % (Auto) [place] % (Auto) Eos % (Auto) Baso % (Auto) Neut # Lymph # [place] # Eos # Baso # Neutrophils % (Manual) Lymphocytes % (Manual) Monocytes % (Manual) Myelocytes % Platelet Estimate Polychromasia Hypochromasia (manual) Sodium Potassium Chloride Carbon Dioxide Anion Gap BUN Creatinine Est GFR ( Amer) Est GFR (Non-Af Amer) POC Glucose (mg/dL) 356 H 263 H Random Glucose Calcium Total Bilirubin AST ALT Alkaline Phosphatase Total Protein Albumin Globulin Albumin/Globulin Ratio Influenza Typ A,B (EIA) Negative for flu a/b 11/04/17 11/04/17 11/04/17 05:34 07:18 11:03 WBC RBC Hgb Hct MCV MCH MCHC RDW Plt Count MPV Neut % (Auto) Lymph % (Auto) [place] % (Auto) Eos % (Auto) Baso % (Auto) Neut # Lymph # [place] # Eos # Baso # Neutrophils % (Manual) Lymphocytes % (Manual) Monocytes % (Manual) Myelocytes % Platelet Estimate Polychromasia Hypochromasia (manual) Sodium Potassium Chloride Carbon Dioxide Anion Gap BUN Creatinine Est GFR ( Amer) Est GFR (Non-Af Amer) POC Glucose (mg/dL) 321 H 311 H 385 H Random Glucose Calcium Total Bilirubin AST ALT Alkaline Phosphatase Total Protein Albumin Globulin Albumin/Globulin Ratio Influenza Typ A,B (EIA) Assessment & Plan (1) Hyperglycemia Status: Acute (2) Hyperosmolar non-ketotic state in patient with type 2 diabetes mellitus Status: Acute (3) Leukocytosis Status: Acute (4) Cellulitis Status: Acute (5) Hyperglycemia Status: Acute (6) UTI (urinary tract infection) Status: Acute
--- NOTE | 2017-11-04 12:18 | PN ---
DATE: ENDOCRINOLOGY FOLLOWUP NOTE LOCATION: ICU, room 3. SUBJECTIVE: This is a 67-year-old male with recent uncontrolled type 2 insulin requiring diabetes, presenting with hyperosmolar hyperglycemic state and dehydration with marked hyponatremia, and is now being followed closely for metabolic management. He received vigorous IV hydration and intensive insulin therapy as given thereof. He is improving both clinically and hemodynamically as noted thereof. His latest glucose levels have ranged from 263 to 311 and 321 mg/dL. His latest chemistries included a BUN of 25, sodium 127, potassium 4.0, chloride 91, CO2 of 28, glucose 330, and creatinine 1.3. ASSESSMENT AND PLAN: So at this time, we will modify once again his basal and bolus insulin regimen to allow to optimize his metabolic control and increase the NovoLog to 12 units subcutaneous t.i.d. before meals to start at lunch time today as ordered. We will also increase the Lantus to 24 units subcutaneous at bedtime daily to start tonight. We will modify the coverage scale using NovoLog insulin a.c. and bedtime with a low-dose algorithm to obviate hypoglycemia and detailed orders have been given. We will continue also the oral hypoglycemic drug therapy with glipizide given as 10 mg daily and metformin as 500 mg b.i.d. as ordered. We will titrate incrementally as indicated to optimize metabolic control. We will follow and advise accordingly. Kirsty Dangelo MD
--- NOTE | 2017-11-04 13:37 | CP.PCM.CON ---
Past Patient History - Past Medical History & Family History Past Medical History?: Yes - Past Social History Smoking Status: Former Smoker - CARDIAC Hx Hypertension: Yes - ENDOCRINE/METABOLIC Hx Diabetes Mellitus Type 1: Yes (2014) - HEMATOLOGICAL/ONCOLOGICAL Other/Comment: non hodgkins lymphoma - INTEGUMENTARY Other/Comment: NonHodgkins Lymphoma - MUSCULOSKELETAL/RHEUMATOLOGICAL Hx Falls: No - GENITOURINARY/GYNECOLOGICAL Hx Prostate Problems: Yes - PSYCHIATRIC Hx Anxiety: Yes Hx Depression: Yes Hx Substance Use: No - SURGICAL HISTORY Other/Comment: biopsy of the groin 1998 - ANESTHESIA Hx Anesthesia: Yes Hx Anesthesia Reactions: No Meds Allergies/Adverse Reactions: Allergies Allergy/AdvReac Type Severity Reaction Status Date / Time No Known Allergies Allergy Verified 11/02/17 18:10 - Medications Medications: Current Medications Aspirin (Ecotrin) 81 mg PO DAILY [facility] Last Admin: 11/04/17 09:10 Dose: 81 mg Ezetimibe (Zetia) 10 mg PO DAILY [facility] Last Admin: 11/04/17 09:13 Dose: 10 mg Enoxaparin Sodium (Lovenox) 40 mg SC DAILY [facility] Last Admin: 11/03/17 10:02 Dose: 40 mg Gabapentin (Neurontin) 800 mg PO TID [facility] Last Admin: 11/04/17 13:24 Dose: 800 mg Glipizide (Glucotrol) 10 mg PO DAILY [facility] Last Admin: 11/04/17 10:00 Dose: 10 mg Hydromorphone HCl (Dilaudid) 1 mg IVP Q6 PRN PRN Reason: Pain, moderate (4-7) Last Admin: 11/04/17 06:57 Dose: 1 mg Piperacillin Sod/Tazobactam Sod (Zosyn 3.375 Gm Iv Premix) 3.375 gm in 50 mls @ 100 mls/hr IVPB Q8H [facility] Last Admin: 11/04/17 05:24 Dose: 100 mls/hr Sodium Chloride (Sodium Chloride 0.9%) 1,000 mls @ 100 mls/hr IV .Q10H [facility] Last Admin: 11/04/17 09:00 Dose: 100 mls/hr Insulin Aspart (Novolog) 12 unit SC AC [facility] Last Admin: 11/04/17 11:40 Dose: 12 unit Insulin Aspart (Novolog) 0 unit SC ACHS [facility] PRN Reason: Protocol Insulin Glargine (Lantus) 24 unit SC [facility] Losartan Potassium (Cozaar) 50 mg PO DAILY [facility] Last Admin: 11/04/17 09:22 Dose: 50 mg Metformin HCl (Glucophage) 500 mg PO BIDAC [facility] Last Admin: 11/04/17 08:50 Dose: 500 mg Montelukast Sodium (Singulair) 10 mg PO DAILY [facility] Pregabalin (Lyrica) 50 mg PO DAILY [facility] Last Admin: 11/04/17 11:00 Dose: 50 mg Rosuvastatin Calcium (Crestor) 2.5 mg PO HS [facility] Last Admin: 11/03/17 22:01 Dose: 2.5 mg Sertraline HCl (Zoloft) 50 mg PO DAILY [facility] Last Admin: 11/04/17 09:24 Dose: 50 mg Sertraline HCl (Zoloft) 100 mg PO DAILY [facility] Trazodone HCl (Desyrel) 100 mg PO DAILY [facility] Last Admin: 11/04/17 09:01 Dose: 100 mg Results - Vital Signs Recent Vital Signs: Last Vital Signs Temp 98.2 F 11/04/17 08:11 Pulse 96 H 11/04/17 09:26 Resp 19 11/04/17 08:11 BP 140/80 11/04/17 08:11 Pulse Ox 93 L 11/04/17 04:11 - Labs Result Diagrams: 11/03/17 20:38 11/03/17 20:38 Labs: Laboratory Results - last 24 hr 11/03/17 11/03/17 11/03/17 17:23 19:33 20:38 WBC 19.2 H RBC 3.29 L Hgb 8.9 L Hct 27.4 L MCV 83.3 D MCH 27.2 MCHC 32.6 L RDW 14.2 Plt Count 312 MPV 8.7 Neut % (Auto) 88.0 H Lymph % (Auto) 4.8 L [place] % (Auto) 6.1 Eos % (Auto) 0.5 Baso % (Auto) 0.6 Neut # 16.9 H Lymph # 0.9 L [place] # 1.2 H Eos # 0.1 Baso # 0.1 Neutrophils % (Manual) 89 H Lymphocytes % (Manual) 5 L Monocytes % (Manual) 5 Myelocytes % 1 H Platelet Estimate Normal Polychromasia Slight Hypochromasia (manual) Slight Sodium Potassium Chloride Carbon Dioxide Anion Gap BUN Creatinine Est GFR ( Amer) Est GFR (Non-Af Amer) POC Glucose (mg/dL) 345 H 332 H Random Glucose Calcium Total Bilirubin AST ALT Alkaline Phosphatase Total Protein Albumin Globulin Albumin/Globulin Ratio Influenza Typ A,B (EIA) 11/03/17 11/03/17 11/04/17 20:38 21:22 01:30 WBC RBC Hgb Hct MCV MCH MCHC RDW Plt Count MPV Neut % (Auto) Lymph % (Auto) [place] % (Auto) Eos % (Auto) Baso % (Auto) Neut # Lymph # [place] # Eos # Baso # Neutrophils % (Manual) Lymphocytes % (Manual) Monocytes % (Manual) Myelocytes % Platelet Estimate Polychromasia Hypochromasia (manual) Sodium 127 L Potassium 4.0 Chloride 91 L Carbon Dioxide 28 Anion Gap 11 BUN 25 H Creatinine 1.3 Est GFR ( Amer) > 60 Est GFR (Non-Af Amer) 55 POC Glucose (mg/dL) 356 H 263 H Random Glucose 330 H Calcium 8.1 L Total Bilirubin 0.4 AST 24 ALT 35 Alkaline Phosphatase 83 Total Protein 6.8 Albumin 3.1 L Globulin 3.8 Albumin/Globulin Ratio 0.8 L Influenza Typ A,B (EIA) 11/04/17 11/04/17 11/04/17 02:27 05:34 07:18 WBC RBC Hgb Hct MCV MCH MCHC RDW Plt Count MPV Neut % (Auto) Lymph % (Auto) [place] % (Auto) Eos % (Auto) Baso % (Auto) Neut # Lymph # [place] # Eos # Baso # Neutrophils % (Manual) Lymphocytes % (Manual) Monocytes % (Manual) Myelocytes % Platelet Estimate Polychromasia Hypochromasia (manual) Sodium Potassium Chloride Carbon Dioxide Anion Gap BUN Creatinine Est GFR ( Amer) Est GFR (Non-Af Amer) POC Glucose (mg/dL) 321 H 311 H Random Glucose Calcium Total Bilirubin AST ALT Alkaline Phosphatase Total Protein Albumin Globulin Albumin/Globulin Ratio Influenza Typ A,B (EIA) Negative for flu a/b 11/04/17 11:03 WBC RBC Hgb Hct MCV MCH MCHC RDW Plt Count MPV Neut % (Auto) Lymph % (Auto) [place] % (Auto) Eos % (Auto) Baso % (Auto) Neut # Lymph # [place] # Eos # Baso # Neutrophils % (Manual) Lymphocytes % (Manual) Monocytes % (Manual) Myelocytes % Platelet Estimate Polychromasia Hypochromasia (manual) Sodium Potassium Chloride Carbon Dioxide Anion Gap BUN Creatinine Est GFR ( Amer) Est GFR (Non-Af Amer) POC Glucose (mg/dL) 385 H Random Glucose Calcium Total Bilirubin AST ALT Alkaline Phosphatase Total Protein Albumin Globulin Albumin/Globulin Ratio Influenza Typ A,B (EIA)
[2017-11-04] MEDS: Rosuvastatin Calcium 2.5 mg Tab PO SCH (21:29)
[2017-11-04] MEDS ORDERED: (Lantus) Insulin Glargine, Recombinant SC SCH (22:00)
[2017-11-05] MEDS: Sodium Chloride 0.9% 1,000 ML IV SCH ×3 (02:47→22:43)
[2017-11-05] MEDS: Piperacill/Tazo 3.375gm in Dex 3.375 GM/50 ML BAG IVPB SCH ×3 (05:51→21:28)
[2017-11-05] MEDS: (Novolog) Insulin Aspart, Recombinant 100 u/ml 10 ml vial SC SCH ×6 (07:39→17:18)
--- NOTE | 2017-11-05 08:11 | CP.PCM.PN ---
Subjective - Date & Time of Evaluation Date of Evaluation: 11/05/17 Time of Evaluation: 07:40 - Subjective Subjective: clinically same Objective - Vital Signs/Intake and Output Vital Signs (last 24 hours): Temp Pulse Resp BP Pulse Ox 98 F 81 20 115/72 96 11/05/17 04:00 11/05/17 04:00 11/05/17 04:00 11/04/17 20:00 11/05/17 00:00 Intake and Output: 11/05/17 11/05/17 06:59 18:59 Intake Total 1700 Output Total 900 Balance 800 - Medications Medications: Current Medications Aspirin (Ecotrin) 81 mg PO DAILY [facility] Last Admin: 11/04/17 09:10 Dose: 81 mg Ezetimibe (Zetia) 10 mg PO DAILY [facility] Last Admin: 11/04/17 09:13 Dose: 10 mg Enoxaparin Sodium (Lovenox) 40 mg SC DAILY [facility] Last Admin: 11/04/17 10:00 Dose: 40 mg Gabapentin (Neurontin) 800 mg PO TID [facility] Last Admin: 11/04/17 19:57 Dose: 800 mg Glipizide (Glucotrol) 10 mg PO DAILY [facility] Last Admin: 11/04/17 10:00 Dose: 10 mg Hydromorphone HCl (Dilaudid) 1 mg IVP Q6 PRN PRN Reason: Pain, moderate (4-7) Last Admin: 11/04/17 06:57 Dose: 1 mg Piperacillin Sod/Tazobactam Sod (Zosyn 3.375 Gm Iv Premix) 3.375 gm in 50 mls @ 100 mls/hr IVPB Q8H [facility] Last Admin: 11/05/17 05:51 Dose: 100 mls/hr Sodium Chloride (Sodium Chloride 0.9%) 1,000 mls @ 100 mls/hr IV .Q10H [facility] Last Admin: 11/05/17 02:47 Dose: 100 mls/hr Insulin Aspart (Novolog) 12 unit SC AC [facility] Last Admin: 11/05/17 07:39 Dose: 12 unit Insulin Aspart (Novolog) 0 unit SC ACHS [facility] PRN Reason: Protocol Last Admin: 11/05/17 07:39 Dose: 3 unit Insulin Glargine (Lantus) 24 unit SC HS [facility] Last Admin: 11/04/17 21:33 Dose: 24 u Losartan Potassium (Cozaar) 50 mg PO DAILY [facility] Last Admin: 11/04/17 09:22 Dose: 50 mg Metformin HCl (Glucophage) 500 mg PO BIDAC [facility] Last Admin: 11/05/17 07:38 Dose: 500 mg Montelukast Sodium (Singulair) 10 mg PO DAILY [facility] Last Admin: 11/04/17 10:00 Dose: 10 mg Pregabalin (Lyrica) 50 mg PO DAILY [facility] Last Admin: 11/04/17 11:00 Dose: 50 mg Rosuvastatin Calcium (Crestor) 2.5 mg PO HS [facility] Last Admin: 11/04/17 21:29 Dose: 2.5 mg Sertraline HCl (Zoloft) 50 mg PO DAILY [facility] Last Admin: 11/04/17 09:24 Dose: 50 mg Sertraline HCl (Zoloft) 100 mg PO DAILY [facility] Last Admin: 11/04/17 16:12 Dose: Not Given Trazodone HCl (Desyrel) 100 mg PO DAILY [facility] Last Admin: 11/04/17 09:01 Dose: 100 mg - Labs Labs: 11/03/17 20:38 11/03/17 20:38
[2017-11-05] MEDS: Enoxaparin 40 mg Syringe SC SCH (09:32)
[2017-11-05 10:22] LABS: BASO # 0.1 K/uL (0.0-0.2); BASO % 0.4 % (0.0-2.0); EOS # 0.1 K/uL (0.0-0.7); EOS % 0.6 % (0.0-4.0); LYMPH # 0.8 K/uL (1.0-4.3); LYMPH % 4.9 % (20.0-40.0); MEAN CORPUSCULAR HEMOGLOBIN 27.4 pg (27.0-31.0); MEAN CORPUSCULAR HGB CONC 32.6 g/dL (33.0-37.0); MEAN PLATELET VOLUME 8.6 fL (7.2-11.7); MONO % 6.1 % (0.0-10.0); NEUT # 14.7 K/uL (1.8-7.0); PLATELET COUNT 290 K/uL (130-400); RBC 3.28 Mil/uL (4.40-5.90); RED CELL DISTRIBUTION WIDTH 13.9 % (11.5-14.5); WHITE BLOOD COUNT 16.7 K/uL (4.8-10.8)
[2017-11-05 10:42] LABS: ALB/GLOB RATIO 0.8 (1.0-2.1); ALBUMIN 3.2 g/dL (3.5-5.0); ALT/SGPT 52 U/L (21-72); AST/SGOT 29 U/L (17-59); BLOOD UREA NITROGEN 20 mg/dL (9-20); CALCIUM 7.7 mg/dl (8.6-10.4); GFR AFRICAN-AMERICAN > 60; GFR NON-AFRICAN AMERICAN > 60
[2017-11-05 11:25] LABS: EOSINOPHIL 1 % (0-4); LYMPHOCYTE 7 % (20-40); MONOCYTE 3 % (0-10); NEUTROPHIL 89 % (50-75); PLATELET ESTIMATE NORMAL (NORMAL); TOTAL CELLS COUNTED 100
[2017-11-05 11:26] LABS: HYPOCHROMIC SLIGHT; POLYCHROMIC SLIGHT
--- NOTE | 2017-11-05 12:16 | PN ---
DATE: ENDOCRINOLOGY FOLLOWUP NOTE LOCATION: ICU, room 3. SUBJECTIVE: This is a 67-year-old male with recent uncontrolled type 2 insulin-requiring diabetes, presenting here with hyperosmolar hyperglycemic state and dehydration and is now being followed closely for metabolic management. His glycemic levels are fluctuating, but improved and the latest glucose levels have ranged from 215 to 263 mg/dL. It was 325 at dinner time yesterday as noted. The latest chemistries showed a BUN 20, sodium 127, potassium 3.3, chloride 93, CO2 of 28, glucose 222 and creatinine 1.2. PLAN: So at this time, we will modify once again his basal and bolus insulin regimen and increase the Lantus to 30 units subcu at bedtime daily to start tonight. We will continue the low dose correction scale using NovoLog insulin as given to obviate hypoglycemia and detailed orders have been given. We will also obtain serial chemistries and supplement accordingly as needed. We will increase the NovoLog to 14 units subcu t.i.d. before meals to start at lunch time today as ordered. We will follow and advise accordingly. Kirsty Dangelo MD
--- NOTE | 2017-11-05 16:04 | CP.PCM.PN ---
Subjective - Date & Time of Evaluation Date of Evaluation: 11/05/17 Time of Evaluation: 07:00 - Subjective Subjective: afebrile alert debnies chest pain cough or SOB Objective - Vital Signs/Intake and Output Vital Signs (last 24 hours): Temp Pulse Resp BP Pulse Ox 97.9 F 78 20 111/67 96 11/05/17 12:00 11/05/17 12:00 11/05/17 12:00 11/05/17 12:00 11/05/17 00:00 Intake and Output: 11/05/17 11/05/17 06:59 18:59 Intake Total 1700 1820 Output Total 900 1000 Balance 800 820 - Medications Medications: Current Medications Aspirin (Ecotrin) 81 mg PO DAILY [facility] Last Admin: 11/05/17 09:33 Dose: 81 mg Ezetimibe (Zetia) 10 mg PO DAILY [facility] Last Admin: 11/05/17 10:42 Dose: 10 mg Enoxaparin Sodium (Lovenox) 40 mg SC DAILY [facility] Last Admin: 11/05/17 09:32 Dose: 40 mg Gabapentin (Neurontin) 800 mg PO TID [facility] Last Admin: 11/05/17 14:01 Dose: 800 mg Glipizide (Glucotrol) 10 mg PO DAILY [facility] Last Admin: 11/05/17 09:32 Dose: 10 mg Hydromorphone HCl (Dilaudid) 1 mg IVP Q6 PRN PRN Reason: Pain, moderate (4-7) Last Admin: 11/04/17 06:57 Dose: 1 mg Piperacillin Sod/Tazobactam Sod (Zosyn 3.375 Gm Iv Premix) 3.375 gm in 50 mls @ 100 mls/hr IVPB Q8H [facility] Last Admin: 11/05/17 14:01 Dose: 100 mls/hr Sodium Chloride (Sodium Chloride 0.9%) 1,000 mls @ 100 mls/hr IV .Q10H [facility] Last Admin: 11/05/17 12:01 Dose: 100 mls/hr Insulin Aspart (Novolog) 0 unit SC ACHS [facility] PRN Reason: Protocol Last Admin: 11/05/17 11:55 Dose: 3 unit Insulin Aspart (Novolog) 14 unit SC AC [facility] Last Admin: 11/05/17 11:56 Dose: 14 unit Insulin Glargine (Lantus) 30 unit SC [facility] Losartan Potassium (Cozaar) 50 mg PO DAILY [facility] Last Admin: 11/05/17 09:32 Dose: 50 mg Metformin HCl (Glucophage) 500 mg PO BIDAC [facility] Last Admin: 11/05/17 07:38 Dose: 500 mg Montelukast Sodium (Singulair) 10 mg PO DAILY [facility] Last Admin: 11/05/17 09:33 Dose: 10 mg Pregabalin (Lyrica) 50 mg PO DAILY [facility] Last Admin: 11/05/17 09:32 Dose: 50 mg Rosuvastatin Calcium (Crestor) 2.5 mg PO HS [facility] Last Admin: 11/04/17 21:29 Dose: 2.5 mg Sertraline HCl (Zoloft) 50 mg PO DAILY [facility] Last Admin: 11/05/17 11:57 Dose: 50 mg Sertraline HCl (Zoloft) 100 mg PO DAILY [facility] Last Admin: 11/05/17 09:33 Dose: 100 mg Trazodone HCl (Desyrel) 100 mg PO DAILY [facility] Last Admin: 11/05/17 10:42 Dose: 100 mg - Labs Labs: 11/05/17 10:18 11/05/17 10:18 - Constitutional Appears: Non-toxic, Chronically Ill - Head Exam Head Exam: NORMOCEPHALIC - Eye Exam Eye Exam: PERRL - ENT Exam ENT Exam: Mucous Membranes Dry - Neck Exam Neck Exam: absent: Lymphadenopathy - Respiratory Exam Respiratory Exam: Decreased Breath Sounds - Cardiovascular Exam Cardiovascular Exam: REGULAR RHYTHM - GI/Abdominal Exam GI & Abdominal Exam: Distended - Rectal Exam Rectal Exam: NORMAL INSPECTION Assessment and Plan (1) Hyperglycemia Status: Acute (2) Hyperosmolar non-ketotic state in patient with type 2 diabetes mellitus Status: Acute (3) Leukocytosis Status: Acute (4) Cellulitis Status: Acute (5) Hyperglycemia Status: Acute (6) UTI (urinary tract infection) Status: Acute
--- NOTE | 2017-11-05 17:27 | CP.PCM.PN ---
Subjective - Date & Time of Evaluation Date of Evaluation: 11/05/17 Time of Evaluation: 17:27 Objective - Vital Signs/Intake and Output Vital Signs (last 24 hours): Temp Pulse Resp BP Pulse Ox 98.0 F 82 20 113/69 96 11/05/17 16:00 11/05/17 16:00 11/05/17 16:00 11/05/17 16:00 11/05/17 00:00 Intake and Output: 11/05/17 11/05/17 06:59 18:59 Intake Total 1700 2140 Output Total 900 1600 Balance 800 540 - Medications Medications: Current Medications Aspirin (Ecotrin) 81 mg PO DAILY [facility] Last Admin: 11/05/17 09:33 Dose: 81 mg Ezetimibe (Zetia) 10 mg PO DAILY [facility] Last Admin: 11/05/17 10:42 Dose: 10 mg Enoxaparin Sodium (Lovenox) 40 mg SC DAILY [facility] Last Admin: 11/05/17 09:32 Dose: 40 mg Gabapentin (Neurontin) 800 mg PO TID [facility] Last Admin: 11/05/17 17:17 Dose: 800 mg Glipizide (Glucotrol) 10 mg PO DAILY [facility] Last Admin: 11/05/17 09:32 Dose: 10 mg Hydromorphone HCl (Dilaudid) 1 mg IVP Q6 PRN PRN Reason: Pain, moderate (4-7) Last Admin: 11/04/17 06:57 Dose: 1 mg Piperacillin Sod/Tazobactam Sod (Zosyn 3.375 Gm Iv Premix) 3.375 gm in 50 mls @ 100 mls/hr IVPB Q8H [facility] Last Admin: 11/05/17 14:01 Dose: 100 mls/hr Sodium Chloride (Sodium Chloride 0.9%) 1,000 mls @ 100 mls/hr IV .Q10H [facility] Last Admin: 11/05/17 12:01 Dose: 100 mls/hr Insulin Aspart (Novolog) 0 unit SC ACHS [facility] PRN Reason: Protocol Last Admin: 11/05/17 17:17 Dose: 2 unit Insulin Aspart (Novolog) 14 unit SC AC [facility] Last Admin: 11/05/17 17:18 Dose: 14 unit Insulin Glargine (Lantus) 30 unit SC HS [facility] Losartan Potassium (Cozaar) 50 mg PO DAILY [facility] Last Admin: 11/05/17 09:32 Dose: 50 mg Metformin HCl (Glucophage) 500 mg PO BIDAC [facility] Last Admin: 11/05/17 17:17 Dose: 500 mg Montelukast Sodium (Singulair) 10 mg PO DAILY [facility] Last Admin: 11/05/17 09:33 Dose: 10 mg Pregabalin (Lyrica) 50 mg PO DAILY [facility] Last Admin: 11/05/17 09:32 Dose: 50 mg Rosuvastatin Calcium (Crestor) 2.5 mg PO HS [facility] Last Admin: 11/04/17 21:29 Dose: 2.5 mg Sertraline HCl (Zoloft) 50 mg PO DAILY [facility] Last Admin: 11/05/17 11:57 Dose: 50 mg Sertraline HCl (Zoloft) 100 mg PO DAILY [facility] Last Admin: 11/05/17 09:33 Dose: 100 mg Trazodone HCl (Desyrel) 100 mg PO DAILY [facility] Last Admin: 11/05/17 10:42 Dose: 100 mg - Labs Labs: 11/05/17 10:18 11/05/17 10:18
[2017-11-05] MEDS: (Lantus) Insulin Glargine, Recombinant SC SCH (21:27)
[2017-11-05] MEDS: Rosuvastatin Calcium 2.5 mg Tab PO SCH (22:00)
[2017-11-06] MEDS: Piperacill/Tazo 3.375gm in Dex 3.375 GM/50 ML BAG IVPB SCH ×3 (06:05→21:15)
[2017-11-06] MEDS: (Novolog) Insulin Aspart, Recombinant 100 u/ml 10 ml vial SC SCH ×8 (08:29→23:00)
[2017-11-06] MEDS: Enoxaparin 40 mg Syringe SC SCH (09:37)
[2017-11-06] MEDS: Sodium Chloride 0.9% 1,000 ML IV SCH (09:38)
--- NOTE | 2017-11-06 16:16 | PN ---
DATE: ENDOCRINOLOGY FOLLOWUP NOTE LOCATION: In ICU, room 3. SUBJECTIVE: This is a 67-year-old male with recent uncontrolled type 2 insulin-requiring diabetes, presenting here with hyperosmolar hyperglycemic state and dehydration, and is now being followed closely for metabolic management. His glycemic levels are fluctuating, but improved, and the latest glucose levels overnight have ranged from 120 to 163 mg/dL. It was 214 at bedtime last night. The latest chemistry showed a BUN of 20, sodium 127, potassium 3.2, chloride 93, CO2 of 28, glucose 222 and creatinine 1.2. ASSESSMENT AND PLAN: So at this time, we will continue the same big bolus insulin regimen to allow for dose equilibration and keeping him on the Lantus given as subcu at bedtime daily as ordered. We will continue the NovoLog given as 14 units subcu t.i.d. before meals as ordered. We will titrate incrementally as indicated to optimize metabolic control. We will obtain serial chemistries and supplement accordingly as need. We will follow. Kirsty Dangelo MD
--- NOTE | 2017-11-06 19:34 | CP.PCM.PN ---
Subjective - Date & Time of Evaluation Date of Evaluation: 11/06/17 Time of Evaluation: 07:00 - Subjective Subjective: c/o back pain has hx non hodgkins lymphoma fever on and off but cultures negative may need heme onc eval Objective - Vital Signs/Intake and Output Vital Signs (last 24 hours): Temp Pulse Resp BP Pulse Ox 97.3 F L 78 16 90/51 L 97 11/06/17 16:00 11/06/17 18:00 11/06/17 16:00 11/06/17 12:00 11/06/17 00:00 Intake and Output: 11/06/17 11/07/17 18:59 06:59 Intake Total 2240 Output Total 1275 Balance 965 - Medications Medications: Current Medications Aspirin (Ecotrin) 81 mg PO DAILY [facility] Last Admin: 11/06/17 09:36 Dose: 81 mg Ezetimibe (Zetia) 10 mg PO DAILY [facility] Last Admin: 11/06/17 09:36 Dose: 10 mg Enoxaparin Sodium (Lovenox) 40 mg SC DAILY [facility] Last Admin: 11/06/17 09:37 Dose: 40 mg Gabapentin (Neurontin) 800 mg PO TID [facility] Last Admin: 11/06/17 17:25 Dose: 800 mg Glipizide (Glucotrol) 10 mg PO DAILY [facility] Last Admin: 11/06/17 09:36 Dose: 10 mg Hydromorphone HCl (Dilaudid) 1 mg IVP Q6 PRN PRN Reason: Pain, moderate (4-7) Last Admin: 11/06/17 16:58 Dose: 1 mg Piperacillin Sod/Tazobactam Sod (Zosyn 3.375 Gm Iv Premix) 3.375 gm in 50 mls @ 100 mls/hr IVPB Q8H [facility] Last Admin: 11/06/17 14:10 Dose: 100 mls/hr Sodium Chloride (Sodium Chloride 0.9%) 1,000 mls @ 100 mls/hr IV .Q10H [facility] Last Admin: 11/06/17 09:38 Dose: 100 mls/hr Insulin Aspart (Novolog) 0 unit SC ACHS [facility] PRN Reason: Protocol Last Admin: 11/06/17 16:53 Dose: 2 unit Insulin Aspart (Novolog) 14 unit SC AC [facility] Last Admin: 11/06/17 16:54 Dose: 14 unit Insulin Glargine (Lantus) 30 unit SC [facility] Last Admin: 11/05/17 21:27 Dose: 30 u Losartan Potassium (Cozaar) 50 mg PO DAILY [facility] Last Admin: 11/06/17 09:36 Dose: 50 mg Metformin HCl (Glucophage) 500 mg PO BIDAC [facility] Last Admin: 11/06/17 16:53 Dose: 500 mg Montelukast Sodium (Singulair) 10 mg PO DAILY [facility] Last Admin: 11/06/17 09:36 Dose: 10 mg Pregabalin (Lyrica) 50 mg PO DAILY [facility] Last Admin: 11/06/17 09:36 Dose: 50 mg Rosuvastatin Calcium (Crestor) 2.5 mg PO HS [facility] Last Admin: 11/05/17 22:00 Dose: 2.5 mg Sertraline HCl (Zoloft) 50 mg PO DAILY [facility] Last Admin: 11/06/17 09:36 Dose: 50 mg Sertraline HCl (Zoloft) 100 mg PO DAILY [facility] Last Admin: 11/06/17 09:36 Dose: 100 mg Trazodone HCl (Desyrel) 100 mg PO DAILY [facility] Last Admin: 11/06/17 09:36 Dose: 100 mg - Labs Labs: 11/05/17 10:18 11/05/17 10:18 - Constitutional Appears: Non-toxic, Chronically Ill - Head Exam Head Exam: NORMOCEPHALIC - Eye Exam Eye Exam: PERRL - ENT Exam ENT Exam: Mucous Membranes Dry - Neck Exam Neck Exam: absent: Lymphadenopathy - Respiratory Exam Respiratory Exam: Decreased Breath Sounds - Cardiovascular Exam Cardiovascular Exam: REGULAR RHYTHM - GI/Abdominal Exam GI & Abdominal Exam: Distended - Rectal Exam Rectal Exam: Deferred - Exam Exam: NORMAL INSPECTION - Extremities Exam Extremities Exam: absent: Pedal Edema - Back Exam Back Exam: absent: CVA tenderness (L), CVA tenderness (R) - Neurological Exam Neurological Exam: Alert, Awake, Oriented x3 Assessment and Plan (1) Hyperglycemia Status: Acute (2) Hyperosmolar non-ketotic state in patient with type 2 diabetes mellitus Status: Acute (3) Leukocytosis Status: Acute (4) Cellulitis Status: Acute (5) Hyperglycemia Status: Acute (6) UTI (urinary tract infection) Status: Acute - Assessment and Plan (Free Text) Assessment: fever and no clear source leukocytosis improving on IV antibiotics will repeat CXR consider Heme Onc eval
--- NOTE | 2017-11-06 20:28 | CP.PCM.PN ---
Subjective - Date & Time of Evaluation Date of Evaluation: 11/06/17 Time of Evaluation: 20:28 Objective - Vital Signs/Intake and Output Vital Signs (last 24 hours): Temp Pulse Resp BP Pulse Ox 97.3 F L 78 16 90/51 L 97 11/06/17 16:00 11/06/17 18:00 11/06/17 16:00 11/06/17 12:00 11/06/17 00:00 Intake and Output: 11/06/17 11/07/17 18:59 06:59 Intake Total 2240 Output Total 1275 Balance 965 - Medications Medications: Current Medications Aspirin (Ecotrin) 81 mg PO DAILY [facility] Last Admin: 11/06/17 09:36 Dose: 81 mg Ezetimibe (Zetia) 10 mg PO DAILY [facility] Last Admin: 11/06/17 09:36 Dose: 10 mg Enoxaparin Sodium (Lovenox) 40 mg SC DAILY [facility] Last Admin: 11/06/17 09:37 Dose: 40 mg Gabapentin (Neurontin) 800 mg PO TID [facility] Last Admin: 11/06/17 17:25 Dose: 800 mg Glipizide (Glucotrol) 10 mg PO DAILY [facility] Last Admin: 11/06/17 09:36 Dose: 10 mg Hydromorphone HCl (Dilaudid) 1 mg IVP Q6 PRN PRN Reason: Pain, moderate (4-7) Last Admin: 11/06/17 16:58 Dose: 1 mg Piperacillin Sod/Tazobactam Sod (Zosyn 3.375 Gm Iv Premix) 3.375 gm in 50 mls @ 100 mls/hr IVPB Q8H [facility] Last Admin: 11/06/17 14:10 Dose: 100 mls/hr Sodium Chloride (Sodium Chloride 0.9%) 1,000 mls @ 100 mls/hr IV .Q10H [facility] Last Admin: 11/06/17 09:38 Dose: 100 mls/hr Insulin Aspart (Novolog) 0 unit SC ACHS [facility] PRN Reason: Protocol Last Admin: 11/06/17 16:53 Dose: 2 unit Insulin Aspart (Novolog) 14 unit SC AC [facility] Last Admin: 11/06/17 16:54 Dose: 14 unit Insulin Glargine (Lantus) 30 unit SC HS [facility] Last Admin: 11/05/17 21:27 Dose: 30 u Losartan Potassium (Cozaar) 50 mg PO DAILY [facility] Last Admin: 11/06/17 09:36 Dose: 50 mg Metformin HCl (Glucophage) 500 mg PO BIDAC [facility] Last Admin: 11/06/17 16:53 Dose: 500 mg Montelukast Sodium (Singulair) 10 mg PO DAILY [facility] Last Admin: 11/06/17 09:36 Dose: 10 mg Pregabalin (Lyrica) 50 mg PO DAILY [facility] Last Admin: 11/06/17 09:36 Dose: 50 mg Rosuvastatin Calcium (Crestor) 2.5 mg PO HS [facility] Last Admin: 11/05/17 22:00 Dose: 2.5 mg Sertraline HCl (Zoloft) 50 mg PO DAILY [facility] Last Admin: 11/06/17 09:36 Dose: 50 mg Sertraline HCl (Zoloft) 100 mg PO DAILY [facility] Last Admin: 11/06/17 09:36 Dose: 100 mg Trazodone HCl (Desyrel) 100 mg PO DAILY [facility] Last Admin: 11/06/17 09:36 Dose: 100 mg - Labs Labs: 11/05/17 10:18 11/05/17 10:18
[2017-11-06] MEDS: Rosuvastatin Calcium 2.5 mg Tab PO SCH (21:17)
[2017-11-06] MEDS: (Lantus) Insulin Glargine, Recombinant SC SCH (21:17)
[2017-11-07] MEDS: Piperacill/Tazo 3.375gm in Dex 3.375 GM/50 ML BAG IVPB SCH ×3 (05:45→21:32)
[2017-11-07] MEDS: Sodium Chloride 0.9% 1,000 ML IV SCH ×3 (06:00→18:28)
[2017-11-07 06:18] LABS: BASO # 0.1 K/uL (0.0-0.2); BASO % 0.6 % (0.0-2.0); EOS # 0.2 K/uL (0.0-0.7); EOS % 1.1 % (0.0-4.0); HEMOGLOBIN 8.6 g/dL (12.0-18.0); LYMPH % 5.9 % (20.0-40.0); MEAN CELL VOLUME 84.7 fL (80.0-94.0); MEAN CORPUSCULAR HEMOGLOBIN 27.3 pg (27.0-31.0); MEAN CORPUSCULAR HGB CONC 32.2 g/dL (33.0-37.0); MEAN PLATELET VOLUME 8.8 fL (7.2-11.7); MONO % 5.9 % (0.0-10.0); NEUT # 14.2 K/uL (1.8-7.0); NEUT % 86.5 % (50.0-75.0); PLATELET COUNT 321 K/uL (130-400); RBC 3.16 Mil/uL (4.40-5.90); RED CELL DISTRIBUTION WIDTH 14.3 % (11.5-14.5); WHITE BLOOD COUNT 16.4 K/uL (4.8-10.8)
[2017-11-07 06:19] LABS: URINE BILIRUBIN NEGATIVE (NEGATIVE); URINE BLOOD NEGATIVE (NEGATIVE); URINE CLARITY Clear (Clear); URINE COLOR Yellow (YELLOW); URINE GLUCOSE (UA) NORMAL (Normal); URINE LEUKOCYTE ESTERASE NEG Leu/uL (Negative); URINE NITRATE NEGATIVE (NEGATIVE); URINE PROTEIN NEGATIVE (NEGATIVE); URINE UROBILINOGEN NORMAL mg/dL (0.2-1.0)
[2017-11-07 06:44] LABS: ALB/GLOB RATIO 0.8 (1.0-2.1); ALT/SGPT 55 U/L (21-72); AST/SGOT 37 U/L (17-59); BLOOD UREA NITROGEN 18 mg/dL (9-20); CALCIUM 7.8 mg/dl (8.6-10.4); GFR AFRICAN-AMERICAN > 60; GFR NON-AFRICAN AMERICAN > 60
[2017-11-07] MEDS: (Novolog) Insulin Aspart, Recombinant 100 u/ml 10 ml vial SC SCH ×7 (07:58→22:00)
--- NOTE | 2017-11-07 09:03 | RAD ---
HISTORY: PNEUMONIA COMPARISON: 11/02/2017. FINDINGS: LUNGS: The lungs are well inflated and clear. PLEURA: No significant pleural effusion identified, no pneumothorax apparent. CARDIOVASCULAR: Normal. OSSEOUS STRUCTURES: No significant abnormalities. VISUALIZED UPPER ABDOMEN: Normal. OTHER FINDINGS: None. IMPRESSION: No active pulmonary disease.
[2017-11-07 09:16] LABS: EOSINOPHIL 1 % (0-4); HYPOCHROMIC SLIGHT; LYMPHOCYTE 10 % (20-40); MONOCYTE 1 % (0-10); NEUTROPHIL 88 % (50-75); PLATELET ESTIMATE NORMAL (NORMAL); POLYCHROMIC SLIGHT; TOTAL CELLS COUNTED 100
[2017-11-07] MEDS: Enoxaparin 40 mg Syringe SC SCH (09:47)
--- NOTE | 2017-11-07 14:02 | PN ---
DATE: ENDOCRINOLOGY FOLLOWUP NOTE LOCATION: ICU, room 3. SUBJECTIVE: This is a 67-year-old male with recent hyperglycemic accelerations, presenting here with hyperosmolar hyperglycemic state and dehydration and is now being followed closely for metabolic management. His oral intake remains variable as per the nursing staff. His glucose levels are fluctuating, but improved and have ranged from 129 to 196 and 199 mg/dL. His latest chemistry shows a BUN of 18, sodium 127, potassium 3.9, chloride 94, CO2 of 26, glucose 204 and creatinine 1.2. So at this time, we will continue the modified basal and bolus insulin regimen as ordered with Lantus given as 30 units subcu at bedtime daily as given. We will also continue the NovoLog given as 14 units subcu t.i.d. before meals as ordered. We will titrate incrementally as indicated to optimize metabolic control. We will follow and advise accordingly. Kirsty Dangelo MD
--- NOTE | 2017-11-07 15:58 | CP.PCM.PN ---
Subjective - Date & Time of Evaluation Date of Evaluation: 11/07/17 Time of Evaluation: 15:58 Objective - Vital Signs/Intake and Output Vital Signs (last 24 hours): Temp Pulse Resp BP Pulse Ox 99.3 F 87 18 104/86 97 11/07/17 12:00 11/07/17 12:00 11/07/17 12:00 11/07/17 12:00 11/06/17 00:00 Intake and Output: 11/07/17 11/07/17 06:59 18:59 Intake Total 300 Output Total 1100 Balance -800 - Medications Medications: Current Medications Aspirin (Ecotrin) 81 mg PO DAILY [facility] Last Admin: 11/07/17 09:47 Dose: 81 mg Docusate Sodium (Colace) 100 mg PO TID [facility] Ezetimibe (Zetia) 10 mg PO DAILY [facility] Last Admin: 11/07/17 09:48 Dose: 10 mg Enoxaparin Sodium (Lovenox) 40 mg SC DAILY [facility] Last Admin: 11/07/17 09:47 Dose: 40 mg Gabapentin (Neurontin) 800 mg PO TID [facility] Last Admin: 11/07/17 14:06 Dose: 800 mg Glipizide (Glucotrol) 10 mg PO DAILY [facility] Last Admin: 11/07/17 09:47 Dose: 10 mg Hydromorphone HCl (Dilaudid) 1 mg IVP Q6 PRN PRN Reason: Pain, moderate (4-7) Last Admin: 11/07/17 09:55 Dose: 1 mg Piperacillin Sod/Tazobactam Sod (Zosyn 3.375 Gm Iv Premix) 3.375 gm in 50 mls @ 100 mls/hr IVPB Q8H [facility] Last Admin: 11/07/17 14:06 Dose: 100 mls/hr Sodium Chloride (Sodium Chloride 0.9%) 1,000 mls @ 100 mls/hr IV .Q10H [facility] Last Admin: 11/07/17 15:47 Dose: Not Given Insulin Aspart (Novolog) 0 unit SC ACHS [facility] PRN Reason: Protocol Last Admin: 11/07/17 11:47 Dose: 2 unit Insulin Aspart (Novolog) 14 unit SC AC [facility] Last Admin: 11/07/17 11:47 Dose: 14 unit Insulin Glargine (Lantus) 30 unit SC HS [facility] Last Admin: 11/06/17 21:17 Dose: 30 u Losartan Potassium (Cozaar) 50 mg PO DAILY [facility] Last Admin: 11/07/17 09:46 Dose: 50 mg Metformin HCl (Glucophage) 500 mg PO BIDAC [facility] Last Admin: 11/07/17 07:58 Dose: 500 mg Montelukast Sodium (Singulair) 10 mg PO DAILY [facility] Last Admin: 11/07/17 09:48 Dose: 10 mg Pregabalin (Lyrica) 50 mg PO DAILY [facility] Last Admin: 11/07/17 09:47 Dose: 50 mg Rosuvastatin Calcium (Crestor) 2.5 mg PO [facility] Last Admin: 11/06/17 21:17 Dose: 2.5 mg Sertraline HCl (Zoloft) 50 mg PO DAILY [facility] Last Admin: 11/07/17 09:48 Dose: 50 mg Sertraline HCl (Zoloft) 100 mg PO DAILY [facility] Last Admin: 11/07/17 09:48 Dose: 100 mg Trazodone HCl (Desyrel) 100 mg PO DAILY [facility] Last Admin: 11/07/17 09:46 Dose: 100 mg - Labs Labs: 11/07/17 06:11 11/07/17 06:11
--- NOTE | 2017-11-07 18:48 | CP.PCM.PN ---
Subjective - Date & Time of Evaluation Date of Evaluation: 11/07/17 Time of Evaluation: 08:00 - Subjective Subjective: c/o dysuria but u/a is wnl back Pain + Objective - Vital Signs/Intake and Output Vital Signs (last 24 hours): Temp Pulse Resp BP Pulse Ox 99.3 F 87 18 104/86 97 11/07/17 16:00 11/07/17 18:00 11/07/17 12:00 11/07/17 12:00 11/06/17 00:00 Intake and Output: 11/07/17 11/07/17 06:59 18:59 Intake Total 300 Output Total 1100 Balance -800 - Medications Medications: Current Medications Aspirin (Ecotrin) 81 mg PO DAILY [facility] Last Admin: 11/07/17 09:47 Dose: 81 mg Docusate Sodium (Colace) 100 mg PO TID [facility] Last Admin: 11/07/17 18:02 Dose: 100 mg Ezetimibe (Zetia) 10 mg PO DAILY [facility] Last Admin: 11/07/17 09:48 Dose: 10 mg Enoxaparin Sodium (Lovenox) 40 mg SC DAILY [facility] Last Admin: 11/07/17 09:47 Dose: 40 mg Gabapentin (Neurontin) 800 mg PO TID [facility] Last Admin: 11/07/17 18:02 Dose: 800 mg Glipizide (Glucotrol) 10 mg PO DAILY [facility] Last Admin: 11/07/17 09:47 Dose: 10 mg Hydromorphone HCl (Dilaudid) 1 mg IVP Q6 PRN PRN Reason: Pain, moderate (4-7) Last Admin: 11/07/17 16:43 Dose: 1 mg Piperacillin Sod/Tazobactam Sod (Zosyn 3.375 Gm Iv Premix) 3.375 gm in 50 mls @ 100 mls/hr IVPB Q8H [facility] Last Admin: 11/07/17 14:06 Dose: 100 mls/hr Sodium Chloride (Sodium Chloride 0.9%) 1,000 mls @ 100 mls/hr IV .Q10H [facility] Last Admin: 11/07/17 18:28 Dose: 100 mls/hr Insulin Aspart (Novolog) 0 unit SC ACHS [facility] PRN Reason: Protocol Last Admin: 11/07/17 16:41 Dose: 3 unit Insulin Aspart (Novolog) 14 unit SC AC [facility] Last Admin: 11/07/17 16:42 Dose: 14 unit Insulin Glargine (Lantus) 30 unit SC HS [facility] Last Admin: 11/06/17 21:17 Dose: 30 u Losartan Potassium (Cozaar) 50 mg PO DAILY [facility] Last Admin: 11/07/17 09:46 Dose: 50 mg Metformin HCl (Glucophage) 500 mg PO BIDAC [facility] Last Admin: 11/07/17 16:48 Dose: 500 mg Montelukast Sodium (Singulair) 10 mg PO DAILY [facility] Last Admin: 11/07/17 09:48 Dose: 10 mg Pregabalin (Lyrica) 50 mg PO DAILY [facility] Last Admin: 11/07/17 09:47 Dose: 50 mg Rosuvastatin Calcium (Crestor) 2.5 mg PO HS [facility] Last Admin: 11/06/17 21:17 Dose: 2.5 mg Sertraline HCl (Zoloft) 50 mg PO DAILY [facility] Last Admin: 11/07/17 09:48 Dose: 50 mg Sertraline HCl (Zoloft) 100 mg PO DAILY [facility] Last Admin: 11/07/17 09:48 Dose: 100 mg Trazodone HCl (Desyrel) 100 mg PO DAILY [facility] Last Admin: 11/07/17 09:46 Dose: 100 mg - Labs Labs: 11/07/17 06:11 11/07/17 06:11 - Constitutional Appears: Non-toxic, Chronically Ill - Head Exam Head Exam: NORMOCEPHALIC - Eye Exam Eye Exam: PERRL. absent: Scleral icterus - ENT Exam ENT Exam: Mucous Membranes Dry - Neck Exam Neck Exam: absent: Lymphadenopathy - Respiratory Exam Respiratory Exam: Decreased Breath Sounds, Rhonchi - Cardiovascular Exam Cardiovascular Exam: REGULAR RHYTHM, +S1, +S2 - GI/Abdominal Exam GI & Abdominal Exam: Distended, Soft - Rectal Exam Rectal Exam: Deferred Assessment and Plan (1) Hyperglycemia Status: Acute (2) Hyperosmolar non-ketotic state in patient with type 2 diabetes mellitus Status: Acute (3) Leukocytosis Status: Acute (4) Cellulitis Status: Acute (5) Hyperglycemia Status: Acute (6) UTI (urinary tract infection) Status: Acute - Assessment and Plan (Free Text) Assessment: sepsis - source unclear hx lymphoma await heme onc eval consider CT spine - c/o severe pain
[2017-11-07] MEDS: (Lantus) Insulin Glargine, Recombinant SC SCH (22:00)
[2017-11-07] MEDS: Rosuvastatin Calcium 2.5 mg Tab PO SCH (23:08)
[2017-11-08] MEDS: Sodium Chloride 0.9% 1,000 ML IV SCH ×5 (01:47→21:54)
[2017-11-08] MEDS: Piperacill/Tazo 3.375gm in Dex 3.375 GM/50 ML BAG IVPB SCH ×3 (06:00→21:51)
[2017-11-08 06:47] LABS: BASO # 0.1 K/uL (0.0-0.2); BASO % 0.9 % (0.0-2.0); EOS # 0.2 K/uL (0.0-0.7); HEMOGLOBIN 8.5 g/dL (12.0-18.0); LYMPH # 0.9 K/uL (1.0-4.3); LYMPH % 5.9 % (20.0-40.0); MEAN CELL VOLUME 85.1 fL (80.0-94.0); MEAN CORPUSCULAR HEMOGLOBIN 28.1 pg (27.0-31.0); MONO # 0.9 K/uL (0.0-0.8); MONO % 5.6 % (0.0-10.0); NEUT # 13.8 K/uL (1.8-7.0); NEUT % 86.6 % (50.0-75.0); PLATELET COUNT 314 K/uL (130-400); RBC 3.02 Mil/uL (4.40-5.90); RED CELL DISTRIBUTION WIDTH 14.2 % (11.5-14.5); WHITE BLOOD COUNT 15.9 K/uL (4.8-10.8)
[2017-11-08 07:16] LABS: ALB/GLOB RATIO 0.8 (1.0-2.1); ALT/SGPT 53 U/L (21-72); AST/SGOT 29 U/L (17-59); BLOOD UREA NITROGEN 16 mg/dL (9-20); GFR AFRICAN-AMERICAN > 60; GFR NON-AFRICAN AMERICAN > 60
[2017-11-08] MEDS: (Novolog) Insulin Aspart, Recombinant 100 u/ml 10 ml vial SC SCH ×7 (07:30→21:49)
[2017-11-08 09:11] LABS: LYMPHOCYTE 4 % (20-40); MONOCYTE 6 % (0-10); NEUTROPHIL 90 % (50-75); PLATELET ESTIMATE NORMAL (NORMAL); TOTAL CELLS COUNTED 100
[2017-11-08 09:12] LABS: ANISOCYTOSIS SLIGHT; HYPOCHROMIC SLIGHT; LARGE PLATELETS PRESENT; POLYCHROMIC SLIGHT; TOXIC GRANULATION PRESENT
[2017-11-08] MEDS: Enoxaparin 40 mg Syringe SC SCH (10:32)
--- NOTE | 2017-11-08 10:48 | CT ---
CT lumbar spine without IV contrast Indication: back pain, septic presentation, hx lymphoma Comparison: CT abdomen pelvis without contrast performed 10/07/17 Technique: Noncontrast axial images of the lumbar spine were provided. Sagittal and coronal reformatted images were generated and reviewed. This CT exam was performed using 1 or more of the following dose reduction techniques: Automated exposure control, adjustment of the MAA and/or kV according to patient size, and/or use of iterative reconstruction technique. Total exam DLP: 1039.31 MGy-cm Findings: Multilevel degenerative changes including osteophyte formation most prominent at L1-L2 and L3-L4. Vertebral body heights and intervertebral disc spaces appear within normal limits. Alignment appears satisfactory. Suspect posterior disc bulge at L5-S1. No acute fracture or subluxation identified. Paraspinal soft tissues appear unremarkable. Limited visualization of the intra-abdominal and intrapelvic contents demonstrate bulky soft tissue masses/adenopathy within the retroperitoneum and mesenteries consistent with history of lymphoma. Left renal hypodense lesion, likely cyst. Atherosclerotic calcifications of the aorta and branches. Impression: No acute fracture or subluxation identified. Multilevel degenerative changes. Suspect posterior disc bulge at L5-S1. If indicated suggest further evaluation with MRI. Bulky soft tissue masses/adenopathy within the retroperitoneum and mesenteries consistent with history of lymphoma. Left renal hypodense lesion, likely cyst. Atherosclerotic calcifications of the aorta and branches.
--- NOTE | 2017-11-08 13:21 | PN ---
DATE: ENDOCRINOLOGY FOLLOWUP NOTE LOCATION: ICU, room 3. SUBJECTIVE: This is a 67-year-old male with recent uncontrolled type 2 insulin-requiring diabetes, presenting here with marked hyperglycemic acceleration and is now being followed closely for metabolic management. His latest chemistries shows a BUN of 18, sodium 127, potassium 3.9, chloride 94, CO2 of 26, glucose 204 and creatinine 1.2. So at this time we will continue the same basal and bolus insulin regimen to allow for dose equilibration and keep him on the Lantus given as 30 units subcu at bedtime daily as ordered. We will continue the NovoLog given as 14 units subcu t.i.d. before meals as given. We will titrate incrementally as indicated to optimize metabolic control. We will follow and advise accordingly. Kirsty Dangelo MD
--- NOTE | 2017-11-08 14:24 | CP.PCM.PN ---
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 SECURITY CALLED AND AT BEDSIDE NOW. DISCUSSED PLAN W DR. MONTGOMERY AND PT MAY BE DOWNGRADED TO MEDICAL FLOOR TODAY. ORDER FOR TRANSFER PLACED BY ME. TO BE MOVED WHEN BED AVAILABLE. NO FURTHER ORDERS. Objective - Vital Signs/Intake and Output Vital Signs (last 24 hours): Temp Pulse Resp BP Pulse Ox 98.3 F 78 18 112/70 97 11/08/17 12:00 11/08/17 12:00 11/08/17 12:00 11/08/17 12:00 11/06/17 00:00 Intake and Output: 11/08/17 11/08/17 06:59 18:59 Intake Total 420 1340 Output Total 1150 450 Balance -730 890 - Medications Medications: Current Medications Aspirin (Ecotrin) 81 mg PO DAILY [facility] Last Admin: 11/08/17 12:09 Dose: Not Given Docusate Sodium (Colace) 100 mg PO TID [facility] Last Admin: 11/08/17 10:08 Dose: 100 mg Ezetimibe (Zetia) 10 mg PO DAILY [facility] Last Admin: 11/08/17 10:33 Dose: Not Given Enoxaparin Sodium (Lovenox) 40 mg SC DAILY [facility] Last Admin: 11/08/17 10:32 Dose: Not Given Gabapentin (Neurontin) 800 mg PO TID [facility] Last Admin: 11/08/17 10:15 Dose: 800 mg Glipizide (Glucotrol) 10 mg PO DAILY [facility] Last Admin: 11/08/17 10:27 Dose: 10 mg Hydromorphone HCl (Dilaudid) 1 mg IVP Q6 PRN PRN Reason: Pain, moderate (4-7) Last Admin: 11/08/17 06:29 Dose: 1 mg Piperacillin Sod/Tazobactam Sod (Zosyn 3.375 Gm Iv Premix) 3.375 gm in 50 mls @ 100 mls/hr IVPB Q8H [facility] Last Admin: 11/08/17 06:00 Dose: 100 mls/hr Sodium Chloride (Sodium Chloride 0.9%) 1,000 mls @ 100 mls/hr IV .Q10H [facility] Last Admin: 11/08/17 12:06 Dose: Not Given Insulin Aspart (Novolog) 0 unit SC ACHS [facility] PRN Reason: Protocol Last Admin: 11/08/17 13:17 Dose: Not Given Insulin Aspart (Novolog) 14 unit SC AC [facility] Last Admin: 11/08/17 13:17 Dose: Not Given Insulin Glargine (Lantus) 30 unit SC HS [facility] Last Admin: 11/07/17 22:00 Dose: 30 u Losartan Potassium (Cozaar) 50 mg PO DAILY [facility] Last Admin: 11/08/17 10:09 Dose: 50 mg Metformin HCl (Glucophage) 500 mg PO BIDAC [facility] Last Admin: 11/08/17 07:55 Dose: 500 mg Montelukast Sodium (Singulair) 10 mg PO DAILY [facility] Last Admin: 11/08/17 10:18 Dose: 10 mg Pregabalin (Lyrica) 50 mg PO DAILY [facility] Last Admin: 11/08/17 12:09 Dose: Not Given Rosuvastatin Calcium (Crestor) 2.5 mg PO HS [facility] Last Admin: 11/07/17 23:08 Dose: 2.5 mg Sertraline HCl (Zoloft) 50 mg PO DAILY [facility] Last Admin: 11/08/17 10:20 Dose: 50 mg Sertraline HCl (Zoloft) 100 mg PO DAILY [facility] Last Admin: 11/08/17 10:23 Dose: Not Given Trazodone HCl (Desyrel) 100 mg PO DAILY [facility] Last Admin: 11/08/17 10:10 Dose: 100 mg - Labs Labs: 11/08/17 06:38 11/08/17 06:38
[2017-11-08 15:20] VITALS: RESP 20
--- NOTE | 2017-11-08 17:14 | CP.PCM.PN ---
Subjective - Date & Time of Evaluation Date of Evaluation: 11/08/17 Time of Evaluation: 17:14 Objective - Vital Signs/Intake and Output Vital Signs (last 24 hours): Temp Pulse Resp BP Pulse Ox 98.3 F 90 20 121/72 95 11/08/17 16:00 11/08/17 16:00 11/08/17 16:00 11/08/17 16:00 11/08/17 16:00 Intake and Output: 11/08/17 11/08/17 06:59 18:59 Intake Total 420 1340 Output Total 1150 450 Balance -730 890 - Medications Medications: Current Medications Aspirin (Ecotrin) 81 mg PO DAILY [facility] Last Admin: 11/08/17 12:09 Dose: Not Given Docusate Sodium (Colace) 100 mg PO TID [facility] Last Admin: 11/08/17 14:26 Dose: 100 mg Ezetimibe (Zetia) 10 mg PO DAILY [facility] Last Admin: 11/08/17 10:33 Dose: Not Given Enoxaparin Sodium (Lovenox) 40 mg SC DAILY [facility] Last Admin: 11/08/17 10:32 Dose: Not Given Gabapentin (Neurontin) 800 mg PO TID [facility] Last Admin: 11/08/17 14:33 Dose: 800 mg Glipizide (Glucotrol) 10 mg PO DAILY [facility] Last Admin: 11/08/17 10:27 Dose: 10 mg Hydromorphone HCl (Dilaudid) 1 mg IVP Q6 PRN PRN Reason: Pain, moderate (4-7) Last Admin: 11/08/17 14:27 Dose: 1 mg Piperacillin Sod/Tazobactam Sod (Zosyn 3.375 Gm Iv Premix) 3.375 gm in 50 mls @ 100 mls/hr IVPB Q8H [facility] Last Admin: 11/08/17 14:26 Dose: 100 mls/hr Sodium Chloride (Sodium Chloride 0.9%) 1,000 mls @ 100 mls/hr IV .Q10H [facility] Last Admin: 11/08/17 14:29 Dose: 100 mls/hr Insulin Aspart (Novolog) 0 unit SC ACHS [facility] PRN Reason: Protocol Last Admin: 11/08/17 13:17 Dose: Not Given Insulin Aspart (Novolog) 14 unit SC AC [facility] Last Admin: 11/08/17 13:17 Dose: Not Given Insulin Glargine (Lantus) 30 unit SC [facility] Last Admin: 11/07/17 22:00 Dose: 30 u Losartan Potassium (Cozaar) 50 mg PO DAILY [facility] Last Admin: 11/08/17 10:09 Dose: 50 mg Metformin HCl (Glucophage) 500 mg PO BIDAC [facility] Last Admin: 11/08/17 07:55 Dose: 500 mg Montelukast Sodium (Singulair) 10 mg PO DAILY [facility] Last Admin: 11/08/17 10:18 Dose: 10 mg Pregabalin (Lyrica) 50 mg PO DAILY [facility] Last Admin: 11/08/17 12:09 Dose: Not Given Rosuvastatin Calcium (Crestor) 2.5 mg PO HS [facility] Last Admin: 11/07/17 23:08 Dose: 2.5 mg Sertraline HCl (Zoloft) 50 mg PO DAILY [facility] Last Admin: 11/08/17 10:20 Dose: 50 mg Sertraline HCl (Zoloft) 100 mg PO DAILY [facility] Last Admin: 11/08/17 10:23 Dose: Not Given Trazodone HCl (Desyrel) 100 mg PO DAILY [facility] Last Admin: 11/08/17 10:10 Dose: 100 mg - Labs Labs: 11/08/17 06:38 11/08/17 06:38
[2017-11-08] MEDS: (Lantus) Insulin Glargine, Recombinant SC SCH (21:00)
[2017-11-08] MEDS: Rosuvastatin Calcium 2.5 mg Tab PO SCH (21:00)
[2017-11-09] MEDS: Piperacill/Tazo 3.375gm in Dex 3.375 GM/50 ML BAG IVPB SCH ×3 (06:06→21:17)
[2017-11-09] MEDS: (Novolog) Insulin Aspart, Recombinant 100 u/ml 10 ml vial SC SCH ×7 (08:05→21:19)
[2017-11-09] MEDS: Enoxaparin 40 mg Syringe SC SCH (09:54)
[2017-11-09] MEDS: Sodium Chloride 0.9% 1,000 ML IV SCH ×3 (10:14→20:47)
--- NOTE | 2017-11-09 12:29 | CP.PCM.PN ---
Subjective - Date & Time of Evaluation Date of Evaluation: 11/09/17 Time of Evaluation: 12:29 Objective - Vital Signs/Intake and Output Vital Signs (last 24 hours): Temp Pulse Resp BP Pulse Ox 98.8 F 86 20 145/79 97 11/09/17 08:00 11/09/17 08:00 11/09/17 08:00 11/09/17 08:00 11/09/17 08:00 Intake and Output: 11/09/17 11/09/17 06:59 18:59 Intake Total 2150 Output Total 500 Balance 1650 - Medications Medications: Current Medications Aspirin (Ecotrin) 81 mg PO DAILY [facility] Last Admin: 11/09/17 09:53 Dose: 81 mg Docusate Sodium (Colace) 100 mg PO TID [facility] Last Admin: 11/09/17 09:53 Dose: 100 mg Ezetimibe (Zetia) 10 mg PO DAILY [facility] Last Admin: 11/09/17 10:06 Dose: 10 mg Enoxaparin Sodium (Lovenox) 40 mg SC DAILY [facility] Last Admin: 11/09/17 09:54 Dose: 40 mg Gabapentin (Neurontin) 800 mg PO TID [facility] Last Admin: 11/09/17 10:06 Dose: 800 mg Glipizide (Glucotrol) 10 mg PO DAILY [facility] Last Admin: 11/09/17 09:53 Dose: 10 mg Hydromorphone HCl (Dilaudid) 1 mg IVP Q6 PRN PRN Reason: Pain, moderate (4-7) Last Admin: 11/09/17 09:50 Dose: 1 mg Piperacillin Sod/Tazobactam Sod (Zosyn 3.375 Gm Iv Premix) 3.375 gm in 50 mls @ 100 mls/hr IVPB Q8H [facility] Last Admin: 11/09/17 06:06 Dose: 100 mls/hr Sodium Chloride (Sodium Chloride 0.9%) 1,000 mls @ 100 mls/hr IV .Q10H [facility] Last Admin: 11/09/17 10:14 Dose: 100 mls/hr Insulin Aspart (Novolog) 0 unit SC ACHS [facility] PRN Reason: Protocol Last Admin: 11/09/17 12:15 Dose: 3 unit Insulin Aspart (Novolog) 14 unit SC AC [facility] Last Admin: 11/09/17 12:16 Dose: 14 unit Insulin Glargine (Lantus) 30 unit SC [facility] Last Admin: 11/08/17 21:00 Dose: 30 u Losartan Potassium (Cozaar) 50 mg PO DAILY [facility] Last Admin: 11/09/17 09:53 Dose: 50 mg Metformin HCl (Glucophage) 500 mg PO BIDAC [facility] Last Admin: 11/09/17 08:02 Dose: 500 mg Montelukast Sodium (Singulair) 10 mg PO DAILY [facility] Last Admin: 11/09/17 09:53 Dose: 10 mg Pregabalin (Lyrica) 50 mg PO DAILY [facility] Last Admin: 11/09/17 09:53 Dose: 50 mg Rosuvastatin Calcium (Crestor) 2.5 mg PO [facility] Last Admin: 11/08/17 21:00 Dose: 2.5 mg Sertraline HCl (Zoloft) 50 mg PO DAILY [facility] Last Admin: 11/09/17 09:53 Dose: 50 mg Sertraline HCl (Zoloft) 100 mg PO DAILY [facility] Last Admin: 11/09/17 10:06 Dose: 100 mg Trazodone HCl (Desyrel) 100 mg PO DAILY [facility] Last Admin: 11/09/17 10:06 Dose: 100 mg - Labs Labs: 11/08/17 06:38 11/08/17 06:38
--- NOTE | 2017-11-09 16:21 | CP.PCM.PN ---
Subjective - Date & Time of Evaluation Date of Evaluation: 11/09/17 Time of Evaluation: 06:00 - Subjective Subjective: events noted c/o pain no fever wbc trending down Objective - Vital Signs/Intake and Output Vital Signs (last 24 hours): Temp Pulse Resp BP Pulse Ox 98.3 F 80 20 112/68 97 11/09/17 16:00 11/09/17 16:00 11/09/17 16:00 11/09/17 16:00 11/09/17 16:00 Intake and Output: 11/09/17 11/09/17 06:59 18:59 Intake Total 2150 Output Total 500 Balance 1650 - Medications Medications: Current Medications Aspirin (Ecotrin) 81 mg PO DAILY [facility] Last Admin: 11/09/17 09:53 Dose: 81 mg Docusate Sodium (Colace) 100 mg PO TID [facility] Last Admin: 11/09/17 14:00 Dose: 100 mg Ezetimibe (Zetia) 10 mg PO DAILY [facility] Last Admin: 11/09/17 10:06 Dose: 10 mg Enoxaparin Sodium (Lovenox) 40 mg SC DAILY [facility] Last Admin: 11/09/17 09:54 Dose: 40 mg Gabapentin (Neurontin) 800 mg PO TID [facility] Last Admin: 11/09/17 14:00 Dose: 800 mg Glipizide (Glucotrol) 10 mg PO DAILY [facility] Last Admin: 11/09/17 09:53 Dose: 10 mg Hydromorphone HCl (Dilaudid) 2 mg IVP Q6H PRN PRN Reason: Pain, moderate (4-7) Last Admin: 11/09/17 14:05 Dose: 2 mg Piperacillin Sod/Tazobactam Sod (Zosyn 3.375 Gm Iv Premix) 3.375 gm in 50 mls @ 100 mls/hr IVPB Q8H [facility] Last Admin: 11/09/17 14:00 Dose: 100 mls/hr Sodium Chloride (Sodium Chloride 0.9%) 1,000 mls @ 100 mls/hr IV .Q10H [facility] Last Admin: 11/09/17 10:14 Dose: 100 mls/hr Insulin Aspart (Novolog) 0 unit SC ACHS [facility] PRN Reason: Protocol Last Admin: 11/09/17 12:15 Dose: 3 unit Insulin Aspart (Novolog) 14 unit SC AC [facility] Last Admin: 11/09/17 12:16 Dose: 14 unit Insulin Glargine (Lantus) 36 unit SC [facility] Losartan Potassium (Cozaar) 50 mg PO DAILY [facility] Last Admin: 11/09/17 09:53 Dose: 50 mg Metformin HCl (Glucophage) 500 mg PO BIDAC [facility] Last Admin: 11/09/17 08:02 Dose: 500 mg Montelukast Sodium (Singulair) 10 mg PO DAILY [facility] Last Admin: 11/09/17 09:53 Dose: 10 mg Pregabalin (Lyrica) 50 mg PO DAILY [facility] Last Admin: 11/09/17 09:53 Dose: 50 mg Rosuvastatin Calcium (Crestor) 2.5 mg PO HS [facility] Last Admin: 11/08/17 21:00 Dose: 2.5 mg Sertraline HCl (Zoloft) 50 mg PO DAILY [facility] Last Admin: 11/09/17 09:53 Dose: 50 mg Sertraline HCl (Zoloft) 100 mg PO DAILY [facility] Last Admin: 11/09/17 10:06 Dose: 100 mg Trazodone HCl (Desyrel) 100 mg PO DAILY [facility] Last Admin: 11/09/17 10:06 Dose: 100 mg - Labs Labs: 11/08/17 06:38 11/08/17 06:38 - Constitutional Appears: Non-toxic, Chronically Ill - Head Exam Head Exam: NORMOCEPHALIC - Eye Exam Pupil Exam: NORMAL ACCOMODATION - ENT Exam ENT Exam: Mucous Membranes Dry - Neck Exam Neck Exam: absent: Lymphadenopathy - Respiratory Exam Respiratory Exam: Decreased Breath Sounds - Cardiovascular Exam Cardiovascular Exam: REGULAR RHYTHM - GI/Abdominal Exam GI & Abdominal Exam: Distended, Soft Assessment and Plan (1) Hyperglycemia Status: Acute (2) Hyperosmolar non-ketotic state in patient with type 2 diabetes mellitus Status: Acute (3) Leukocytosis Status: Acute (4) Cellulitis Status: Acute (5) Hyperglycemia Status: Acute (6) UTI (urinary tract infection) Status: Acute
[2017-11-09] MEDS: (Lantus) Insulin Glargine, Recombinant SC SCH (21:18)
[2017-11-09] MEDS: Rosuvastatin Calcium 2.5 mg Tab PO SCH (21:18)
--- NOTE | 2017-11-10 00:57 | PN ---
DATE: ENDOCRINOLOGY FOLLOWUP NOTE LOCATION: Room 356, [facility]. SUBJECTIVE: This is a 67-year-old male with recent uncontrolled type-2 insulin-requiring diabetes, now being followed closely for metabolic management. OBJECTIVE: His glycemic levels are fluctuating, but improved. The glycemic values have ranged from 230 to 235 and 287 mg/dL. His latest chemistry shows a BUN of 18, sodium 127, potassium 3.9, chloride 94, CO2 of 26, glucose 204, and creatinine 1.2. ASSESSMENT AND PLAN: So at this time, we will continue the same basal and bolus insulin regimen as given with NovoLog given as 14 units subcu t.i.d. before meals as ordered. We will increase, however, his basal insulin with Lantus to be given at a higher dose of 36 units subcu daily to start tonight as ordered. We will continue the low-dose correction scale using NovoLog insulin as given. We will titrate incrementally as indicated to optimize metabolic control. We will follow. Kirsty Dangelo MD
[2017-11-10] MEDS: Piperacill/Tazo 3.375gm in Dex 3.375 GM/50 ML BAG IVPB SCH ×3 (05:18→21:35)
[2017-11-10] MEDS: (Novolog) Insulin Aspart, Recombinant 100 u/ml 10 ml vial SC SCH ×7 (07:56→21:24)
[2017-11-10] MEDS: Enoxaparin 40 mg Syringe SC SCH (10:07)
--- NOTE | 2017-11-10 13:51 | CP.PCM.PN ---
Subjective - Date & Time of Evaluation Date of Evaluation: 11/10/17 Time of Evaluation: 13:51 Objective - Vital Signs/Intake and Output Vital Signs (last 24 hours): Temp Pulse Resp BP Pulse Ox 98.2 F 83 20 144/87 97 11/10/17 08:37 11/10/17 08:37 11/10/17 08:37 11/10/17 08:37 11/10/17 08:37 Intake and Output: 11/10/17 11/10/17 06:59 18:59 Intake Total 1040 Balance 1040 - Medications Medications: Current Medications Aspirin (Ecotrin) 81 mg PO DAILY [facility] Last Admin: 11/10/17 10:07 Dose: 81 mg Docusate Sodium (Colace) 100 mg PO TID [facility] Last Admin: 11/10/17 10:04 Dose: 100 mg Ezetimibe (Zetia) 10 mg PO DAILY [facility] Last Admin: 11/10/17 10:08 Dose: 10 mg Gabapentin (Neurontin) 800 mg PO TID [facility] Last Admin: 11/10/17 10:08 Dose: 800 mg Glipizide (Glucotrol) 10 mg PO DAILY [facility] Last Admin: 11/10/17 10:07 Dose: 10 mg Hydromorphone HCl (Dilaudid) 2 mg IVP Q6H PRN PRN Reason: Pain, moderate (4-7) Last Admin: 11/10/17 07:50 Dose: 2 mg Piperacillin Sod/Tazobactam Sod (Zosyn 3.375 Gm Iv Premix) 3.375 gm in 50 mls @ 100 mls/hr IVPB Q8H [facility] Last Admin: 11/10/17 05:18 Dose: 100 mls/hr Sodium Chloride (Sodium Chloride 0.9%) 1,000 mls @ 100 mls/hr IV .Q10H [facility] Last Admin: 11/09/17 20:47 Dose: 100 mls/hr Insulin Aspart (Novolog) 0 unit SC ACHS [facility] PRN Reason: Protocol Last Admin: 11/10/17 12:01 Dose: 2 unit Insulin Aspart (Novolog) 14 unit SC AC [facility] Last Admin: 11/10/17 12:02 Dose: 14 unit Insulin Glargine (Lantus) 36 unit SC HS [facility] Last Admin: 11/09/17 21:18 Dose: Not Given Losartan Potassium (Cozaar) 50 mg PO DAILY [facility] Last Admin: 11/10/17 10:04 Dose: 50 mg Metformin HCl (Glucophage) 500 mg PO BIDAC [facility] Last Admin: 11/10/17 07:54 Dose: 500 mg Montelukast Sodium (Singulair) 10 mg PO DAILY [facility] Last Admin: 11/10/17 10:08 Dose: 10 mg Pregabalin (Lyrica) 50 mg PO DAILY [facility] Last Admin: 11/10/17 10:08 Dose: 50 mg Rosuvastatin Calcium (Crestor) 2.5 mg PO HS [facility] Last Admin: 11/09/17 21:18 Dose: 2.5 mg Sertraline HCl (Zoloft) 50 mg PO DAILY [facility] Last Admin: 11/10/17 10:09 Dose: 50 mg Sertraline HCl (Zoloft) 100 mg PO DAILY [facility] Last Admin: 11/10/17 10:30 Dose: 100 mg Trazodone HCl (Desyrel) 100 mg PO DAILY [facility] Last Admin: 11/10/17 10:15 Dose: Not Given - Labs Labs: 11/08/17 06:38 11/08/17 06:38
--- NOTE | 2017-11-10 14:55 | PN ---
DATE: ENDOCRINOLOGY FOLLOWUP NOTE LOCATION: Room 356. SUBJECTIVE: This is a 67-year-old male with recent uncontrolled type 2 insulin-requiring diabetes, now being followed closely for metabolic management. His glycemic levels are fluctuating, but much improved at this time and the latest glucose levels have ranged from 81 to 126 and 230 mg/dL. His latest chemistry showed a BUN of 16, sodium 127, potassium 4.1, chloride 95, CO2 of 25, glucose 286 and creatinine 1.0. PLAN: So at this time, we will continue the same basal and bolus insulin regimen to allow for dose equilibration and continue Lantus given as 36 units subcu at bedtime daily as ordered. We will continue the NovoLog given as 14 units subcu t.i.d. before meals as ordered. We will continue also the low dose correction scale using NovoLog insulin as given. Moreover, we will continue with dual oral hypoglycemic therapy with metformin at 500 mg b.i.d. and glipizide at 10 mg b.i.d. before meals as ordered. We will titrate incrementally as indicated to optimize metabolic control. We will follow. Kirsty Dangelo MD
[2017-11-10] MEDS: Sodium Chloride 0.9% 1,000 ML IV SCH ×2 (19:21→23:36)
[2017-11-10] MEDS: (Lantus) Insulin Glargine, Recombinant SC SCH (21:32)
[2017-11-10] MEDS: Rosuvastatin Calcium 2.5 mg Tab PO SCH (21:35)
[2017-11-11] MEDS: Sodium Chloride 0.9% 1,000 ML IV SCH ×2 (05:29→17:51)
[2017-11-11] MEDS: Piperacill/Tazo 3.375gm in Dex 3.375 GM/50 ML BAG IVPB SCH ×3 (05:29→21:46)
--- NOTE | 2017-11-11 06:35 | CP.PCM.PN ---
Subjective - Date & Time of Evaluation Date of Evaluation: 11/11/17 Time of Evaluation: 06:33 - Subjective Subjective: PATIENT SEEN. WILL DICTATE dx;RETROPERITONEAL MASS ADENOPATHY NEED TISSUE DIAGNOSIS. AND BIOPSY WILL FOLLOW... GET PRE CHEMO MUGA SCAN.. Objective - Vital Signs/Intake and Output Vital Signs (last 24 hours): Temp Pulse Resp BP Pulse Ox 98.1 F 98 H 20 125/74 97 11/11/17 00:00 11/11/17 00:00 11/11/17 00:00 11/11/17 00:00 11/11/17 00:00 Intake and Output: 11/10/17 11/11/17 18:59 06:59 Intake Total 1650 2600 Output Total 580 Balance 1070 2600 - Medications Medications: Current Medications Aspirin (Ecotrin) 81 mg PO DAILY [facility] Last Admin: 11/10/17 10:07 Dose: 81 mg Docusate Sodium (Colace) 100 mg PO TID [facility] Last Admin: 11/10/17 17:40 Dose: 100 mg Ezetimibe (Zetia) 10 mg PO DAILY [facility] Last Admin: 11/10/17 10:08 Dose: 10 mg Gabapentin (Neurontin) 800 mg PO TID [facility] Last Admin: 11/10/17 17:40 Dose: 800 mg Glipizide (Glucotrol) 10 mg PO DAILY [facility] Last Admin: 11/10/17 10:07 Dose: 10 mg Hydromorphone HCl (Dilaudid) 2 mg IVP Q6H PRN PRN Reason: Pain, moderate (4-7) Last Admin: 11/11/17 05:34 Dose: 2 mg Piperacillin Sod/Tazobactam Sod (Zosyn 3.375 Gm Iv Premix) 3.375 gm in 50 mls @ 100 mls/hr IVPB Q8H [facility] Last Admin: 11/11/17 05:29 Dose: 100 mls/hr Sodium Chloride (Sodium Chloride 0.9%) 1,000 mls @ 100 mls/hr IV .Q10H [facility] Last Admin: 11/11/17 05:29 Dose: 100 mls/hr Insulin Aspart (Novolog) 0 unit SC ACHS [facility] PRN Reason: Protocol Last Admin: 11/10/17 21:24 Dose: Not Given Insulin Aspart (Novolog) 14 unit SC AC [facility] Last Admin: 11/10/17 16:59 Dose: Not Given Insulin Glargine (Lantus) 36 unit SC HS [facility] Last Admin: 11/10/17 21:32 Dose: Not Given Losartan Potassium (Cozaar) 50 mg PO DAILY [facility] Last Admin: 11/10/17 10:04 Dose: 50 mg Metformin HCl (Glucophage) 500 mg PO BIDAC [facility] Last Admin: 11/10/17 16:58 Dose: Not Given Montelukast Sodium (Singulair) 10 mg PO DAILY [facility] Last Admin: 11/10/17 10:08 Dose: 10 mg Pregabalin (Lyrica) 50 mg PO DAILY [facility] Last Admin: 11/10/17 10:08 Dose: 50 mg Rosuvastatin Calcium (Crestor) 2.5 mg PO HS [facility] Last Admin: 11/10/17 21:35 Dose: 2.5 mg Sertraline HCl (Zoloft) 50 mg PO DAILY [facility] Last Admin: 11/10/17 10:09 Dose: 50 mg Sertraline HCl (Zoloft) 100 mg PO DAILY [facility] Last Admin: 11/10/17 10:30 Dose: 100 mg Trazodone HCl (Desyrel) 100 mg PO HS [facility] Last Admin: 11/10/17 21:35 Dose: 100 mg - Labs Labs: 11/08/17 06:38 11/08/17 06:38
[2017-11-11] MEDS: (Novolog) Insulin Aspart, Recombinant 100 u/ml 10 ml vial SC SCH ×7 (08:14→21:48)
[2017-11-11 11:29] LABS: BASO # 0.2 K/uL (0.0-0.2); BASO % 1.2 % (0.0-2.0); EOS # 0.2 K/uL (0.0-0.7); EOS % 1.5 % (0.0-4.0); LYMPH # 0.8 K/uL (1.0-4.3); LYMPH % 5.1 % (20.0-40.0); MEAN CELL VOLUME 84.4 fL (80.0-94.0); MEAN CORPUSCULAR HEMOGLOBIN 27.4 pg (27.0-31.0); MEAN CORPUSCULAR HGB CONC 32.5 g/dL (33.0-37.0); MEAN PLATELET VOLUME 8.6 fL (7.2-11.7); MONO # 0.8 K/uL (0.0-0.8); MONO % 5.2 % (0.0-10.0); NEUT # 13.9 K/uL (1.8-7.0); PLATELET COUNT 486 K/uL (130-400); RBC 3.28 Mil/uL (4.40-5.90); RED CELL DISTRIBUTION WIDTH 14.3 % (11.5-14.5)
[2017-11-11 11:40] LABS: ALBUMIN 3.4 g/dL (3.5-5.0); ALT/SGPT 60 U/L (21-72); AST/SGOT 24 U/L (17-59); BLOOD UREA NITROGEN 17 mg/dL (9-20); CALCIUM 8.3 mg/dl (8.6-10.4); GFR AFRICAN-AMERICAN > 60; GFR NON-AFRICAN AMERICAN > 60
[2017-11-11 11:47] LABS: ALB/GLOB RATIO 0.7 (1.0-2.1)
[2017-11-11 12:44] LABS: EOSINOPHIL 1 % (0-4); LYMPHOCYTE 4 % (20-40); MONOCYTE 5 % (0-10); NEUTROPHIL 90 % (50-75); PLATELET ESTIMATE SLIGHTLY INCREASED (NORMAL); TOTAL CELLS COUNTED 100
--- NOTE | 2017-11-11 13:27 | CP.PCM.PN ---
Subjective - Date & Time of Evaluation Date of Evaluation: 11/11/17 Time of Evaluation: 13:27 Objective - Vital Signs/Intake and Output Vital Signs (last 24 hours): Temp Pulse Resp BP Pulse Ox 98.1 F 98 H 20 125/74 97 11/11/17 00:00 11/11/17 00:00 11/11/17 00:00 11/11/17 00:00 11/11/17 00:00 Intake and Output: 11/11/17 11/11/17 06:59 18:59 Intake Total 2600 Balance 2600 - Medications Medications: Current Medications Aspirin (Ecotrin) 81 mg PO DAILY [facility] Last Admin: 11/11/17 09:42 Dose: 81 mg Docusate Sodium (Colace) 100 mg PO TID [facility] Last Admin: 11/11/17 13:10 Dose: 100 mg Ezetimibe (Zetia) 10 mg PO DAILY [facility] Last Admin: 11/11/17 09:45 Dose: 10 mg Gabapentin (Neurontin) 800 mg PO TID [facility] Last Admin: 11/11/17 13:10 Dose: 800 mg Glipizide (Glucotrol) 10 mg PO DAILY [facility] Last Admin: 11/11/17 09:41 Dose: 10 mg Hydromorphone HCl (Dilaudid) 2 mg IVP Q6H PRN PRN Reason: Pain, moderate (4-7) Last Admin: 11/11/17 12:31 Dose: 2 mg Piperacillin Sod/Tazobactam Sod (Zosyn 3.375 Gm Iv Premix) 3.375 gm in 50 mls @ 100 mls/hr IVPB Q8H [facility] Last Admin: 11/11/17 13:10 Dose: 100 mls/hr Insulin Aspart (Novolog) 0 unit SC ACHS [facility] PRN Reason: Protocol Last Admin: 11/11/17 12:36 Dose: Not Given Insulin Aspart (Novolog) 14 unit SC AC [facility] Last Admin: 11/11/17 12:32 Dose: 14 unit Insulin Glargine (Lantus) 36 unit SC HS [facility] Last Admin: 11/10/17 21:32 Dose: Not Given Losartan Potassium (Cozaar) 50 mg PO DAILY [facility] Last Admin: 11/11/17 09:42 Dose: 50 mg Metformin HCl (Glucophage) 500 mg PO BIDAC [facility] Last Admin: 11/11/17 08:26 Dose: 500 mg Montelukast Sodium (Singulair) 10 mg PO DAILY [facility] Last Admin: 11/11/17 09:42 Dose: 10 mg Pregabalin (Lyrica) 50 mg PO DAILY [facility] Last Admin: 11/11/17 09:42 Dose: 50 mg Rosuvastatin Calcium (Crestor) 2.5 mg PO [facility] Last Admin: 11/10/17 21:35 Dose: 2.5 mg Sertraline HCl (Zoloft) 50 mg PO DAILY [facility] Last Admin: 11/11/17 09:42 Dose: 50 mg Sertraline HCl (Zoloft) 100 mg PO DAILY [facility] Last Admin: 11/11/17 09:45 Dose: 100 mg Trazodone HCl (Desyrel) 100 mg PO [facility] Last Admin: 11/10/17 21:35 Dose: 100 mg - Labs Labs: 11/11/17 11:21 11/11/17 11:21
--- NOTE | 2017-11-11 13:59 | PN ---
DATE: SUBJECTIVE: The patient was seen on the floor, in room #356 A, on the rounds. Notes, labs, imaging, etc. reviewed in great details and discussed with the patient and all involved. Mr. Fontanez is a 67-year-old gentleman, who was admitted to the hospital with uncontrolled diabetes and has been placed on insulin injections to control diabetes. The patient is now doing well. He is on regular floor for further management. The patient is generally well. He has a history of lymphoma in the past and he received chemotherapy previously at [facility]. The patient was seen by me in the office recently when Dr. Hernandez Camacho referred him with abnormal imaging. The patient was scheduled to have a whole body PET/CT scan at [facility]; however, before he can get that scan, the patient was ended up in the emergency room at the [facility] The patient denies any headache or any neurological symptoms. The patient denies any chest pain, shortness of breath, or palpitation. The patient denies any nausea, vomiting, abdominal pain, fever, or diarrhea. The patient does report at times he gets night sweats and he does report a weight loss secondary to his diabetes. The patient was found to have a retroperitoneal adenopathy and intra-abdominal mass on CT scan of the abdomen, which needed a further testing. On CT scan of the lumbar spine that was done on 11/07/2017, it showed that the patient had bulky soft tissue masses within the retroperitoneum and the mesentery, that was consistent with the lymphoma. The patient was recommended to have a tissue diagnosis and biopsy to make the diagnosis of any kind of lymphoma or anything that we need to do. This was discussed with the patient and also with the doctors involved. The patient is generally well. PHYSICAL EXAMINATION: GENERAL: The patient is alert, awake, oriented. VITAL SIGNS: Afebrile, pulse is 82 per minute, and respirations 22. HEENT: Unremarkable, anicteric. NECK: Supple. No adenopathy. CHEST: Bilateral air, no rales or rhonchi. ABDOMEN: Soft, nontender. Bowel sounds present. No palpable hepatosplenomegaly. EXTREMITIES: No pedal edema. No clubbing. No cyanosis. NEUROLOGIC: Alert, awake, oriented. Nonfocal. No palpable adenopathy anywhere else. ASSESSMENT AND PLAN: Mr. Fontanez is a 67-year-old gentleman who has a history of lymphoma with a history of chemotherapy treatment in the past. The patient has now come up with a weight loss and intra-abdominal retroperitoneal adenopathy and masses on recent scans. The patient needs further evaluation in terms of tissue diagnosis and biopsy of the retroperitoneal mass to rule out recurrent lymphoma. This case was discussed with the patient and the service. We will follow the patient as we go. The patient was also given an appointment to see me in the office after discharge. Kerri Elkins MD
--- NOTE | 2017-11-11 17:31 | CP.PCM.PN ---
Subjective - Date & Time of Evaluation Date of Evaluation: 11/11/17 Time of Evaluation: 17:27 - Subjective Subjective: PT SEEN AND EXAMINED TODAY BY DR MONTGOMERY Objective - Vital Signs/Intake and Output Vital Signs (last 24 hours): Temp Pulse Resp BP Pulse Ox 98.3 F 88 20 126/71 97 11/11/17 17:05 11/11/17 17:05 11/11/17 17:05 11/11/17 17:05 11/11/17 17:05 Intake and Output: 11/11/17 11/11/17 06:59 18:59 Intake Total 2600 Balance 2600 - Medications Medications: Current Medications Aspirin (Ecotrin) 81 mg PO DAILY [facility] Last Admin: 11/11/17 09:42 Dose: 81 mg Docusate Sodium (Colace) 100 mg PO TID [facility] Last Admin: 11/11/17 13:10 Dose: 100 mg Ezetimibe (Zetia) 10 mg PO DAILY [facility] Last Admin: 11/11/17 09:45 Dose: 10 mg Gabapentin (Neurontin) 800 mg PO TID [facility] Last Admin: 11/11/17 13:10 Dose: 800 mg Glipizide (Glucotrol) 10 mg PO DAILY [facility] Last Admin: 11/11/17 09:41 Dose: 10 mg Hydromorphone HCl (Dilaudid) 2 mg IVP Q6H PRN PRN Reason: Pain, moderate (4-7) Last Admin: 11/11/17 12:31 Dose: 2 mg Piperacillin Sod/Tazobactam Sod (Zosyn 3.375 Gm Iv Premix) 3.375 gm in 50 mls @ 100 mls/hr IVPB Q8H [facility] Last Admin: 11/11/17 13:10 Dose: 100 mls/hr Insulin Aspart (Novolog) 0 unit SC ACHS [facility] PRN Reason: Protocol Last Admin: 11/11/17 12:36 Dose: Not Given Insulin Aspart (Novolog) 14 unit SC AC [facility] Last Admin: 11/11/17 12:32 Dose: 14 unit Insulin Glargine (Lantus) 36 unit SC HS [facility] Last Admin: 11/10/17 21:32 Dose: Not Given Losartan Potassium (Cozaar) 50 mg PO DAILY [facility] Last Admin: 11/11/17 09:42 Dose: 50 mg Metformin HCl (Glucophage) 500 mg PO BIDAC [facility] Last Admin: 11/11/17 08:26 Dose: 500 mg Montelukast Sodium (Singulair) 10 mg PO DAILY [facility] Last Admin: 11/11/17 09:42 Dose: 10 mg Pregabalin (Lyrica) 50 mg PO DAILY [facility] Last Admin: 11/11/17 09:42 Dose: 50 mg Rosuvastatin Calcium (Crestor) 2.5 mg PO HS [facility] Last Admin: 11/10/17 21:35 Dose: 2.5 mg Sertraline HCl (Zoloft) 50 mg PO DAILY [facility] Last Admin: 11/11/17 09:42 Dose: 50 mg Sertraline HCl (Zoloft) 100 mg PO DAILY [facility] Last Admin: 11/11/17 09:45 Dose: 100 mg Trazodone HCl (Desyrel) 100 mg PO [facility] Last Admin: 11/10/17 21:35 Dose: 100 mg - Labs Labs: 11/11/17 11:21 11/11/17 11:21 Assessment and Plan - Assessment and Plan (Free Text) Plan: 67 Y/O MALE WITH PMHX DM II, LYMPHOMA ADMITTED FOR UNCONTROLLED DM, HHNK, LEUKOCYTOSIS RETROPERITONEAL MASS ADNOPATHY NEED TISSUE DIAGNOSIS, BIOPSY WILL FOLLOW OUTPT - PER DR. PORTILLO CT ABD/PELVIS WITH PO/IV ORDERED INPT-- PER DR. PORTILLO CASE D/W DR MONTGOMERY, AGREE W/POC
[2017-11-11] MEDS ORDERED: Iohexol 240 (50 ml) PO ONE (19:00)
[2017-11-11] MEDS ORDERED: Iohexol 300 100 ML IJ ONE (20:18)
[2017-11-11] MEDS: Rosuvastatin Calcium 2.5 mg Tab PO SCH (21:45)
[2017-11-11] MEDS: (Lantus) Insulin Glargine, Recombinant SC SCH (21:49)
--- NOTE | 2017-11-11 21:51 | CT ---
EXAM: CT Abdomen and Pelvis With Intravenous Contrast EXAM DATE/TIME: Exam ordered 11/11/2017 5:22 PM CLINICAL HISTORY: 67 years old, male; Pain; Abdominal pain; Generalized; Patient HX: Lejoanieocystosis; Additional info: Hhnk TECHNIQUE: Axial computed tomography images of the abdomen and pelvis with intravenous contrast. All CT scans at this facility use one or more dose reduction techniques, viz.: automated exposure control; ma/kV adjustment per patient size (including targeted exams where dose is matched to indication; i.e. head); or iterative reconstruction technique. Coronal and sagittal reformatted images were created and reviewed. CONTRAST: 100 mL of OMNIUPAQUE 300 administered intravenously. COMPARISON: CT - ABD PELVIS W/O PO OR IV CONT 2017-10-07 11:40 FINDINGS: Lower thorax: A 4 mm pulmonary nodules noted in the right middle lobe (series 5 image 5). A 6 mm pleural-based nodule is noted in the right middle lobe (series 5 image 11). Coronary artery calcifications present. ABDOMEN: Liver: Unremarkable. No mass. Gallbladder and bile ducts: Heterogeneous density within the gallbladder suggests gallstones. There is no gallbladder wall thickening or pericholecystic fluid. No pericholecystic inflammatory changes are noted. No ductal dilatation is seen. Pancreas: Unremarkable. No mass. No ductal dilation. Spleen: Spleen measures 13.2 cm in craniocaudal span. Adrenals: Unremarkable. No mass. Kidneys and ureters: There is moderate bilateral hydronephrosis . there are bilateral renal cysts. Stomach and bowel: There scattered colonic diverticula. Mildly distended contrast-filled loops of small bowel are present. A large amount of stool is seen in the colon. The stomach is moderately distended with contrast and food. No mucosal thickening. Appendix: No findings to suggest acute appendicitis. PELVIS: Bladder: The bladder is markedly distended. The bladder measures 16.9 x 8.1 by 8.2 cm for a volume of 580 cc. Reproductive: Prostate measures 3.7 x 4.3 by 3.8 cm. ABDOMEN and PELVIS: Intraperitoneal space: There is a left inguinal hernia containing ascites fluid. No free air. Bones/joints: Degenerative changes are noted of the thoracolumbar spine. No acute fracture. No dislocation. Soft tissues: See above. Vasculature: There is stranding artifact noted in the pelvis at the level of the inguinal canal. This may account in part for the apparent low density noted within the common femoral veins bilaterally. The possibility of thrombosis cannot be excluded on this examination. No abdominal aortic aneurysm. Lymph nodes: There is extensive retroperitoneal, periportal, peripancreatic and mesenteric adenopathy. There is stranding of the mesenteric fat. There are bilateral enlarged inguinal lymph nodes. Bulky internal and external iliac adenopathy is present. Bulky adenopathy is noted surrounding the renal arteries bilaterally left greater than right. There is retrocrural adenopathy. IMPRESSION: 1. Mild splenomegaly with extensive intra-abdominal, retroperitoneal, retrocrural, pelvic and inguinal adenopathy in this patient with known lymphoma. Stranding of the mesenteric fat. No significant change. 2. Mild hydronephrosis with a distended bladder. The bladder contains 580 cc. 3. Left inguinal hernia containing ascites and fat. 4. The abdomen is slightly more distended than on the previous examination. A large amount of stool is noted within the colon and mildly prominent small bowel loops may represent mild ileus 5. Colonic diverticula. 6. Heterogeneous density noted within the common femoral veins bilaterally . This may in part be related to artifact. Nonocclusive thrombus is another consideration. 7. Gallstones 8. Bilateral pulmonary nodules. An optional follow-up chest CT at 12 months could be performed due to the high risk of malignancy. If unchanged, no further follow-up is necessary.
[2017-11-12] MEDS: Piperacill/Tazo 3.375gm in Dex 3.375 GM/50 ML BAG IVPB SCH ×3 (05:08→21:30)
[2017-11-12] MEDS: Sodium Chloride 0.9% 1,000 ML IV SCH ×2 (05:09→17:51)
[2017-11-12] MEDS: (Novolog) Insulin Aspart, Recombinant 100 u/ml 10 ml vial SC SCH ×7 (07:39→21:34)
[2017-11-12] MEDS: Enoxaparin 40 mg Syringe SC SCH (09:41)
--- NOTE | 2017-11-12 11:32 | VASCLAB ---
PROCEDURE: Lower Extremity Venous Duplex Exam. HISTORY: Pain in limb, R/O DVT PRIORS: None. TECHNIQUE: Bilateral common femoral, femoral, popliteal and posterior tibial, peroneal and great saphenous veins were evaluated. Flow was assessed with color Doppler, compressibility, assessment of phasic flow and augmentation response. Report prepared by BRIONNA Che FINDINGS: RIGHT: 1. Common Femoral Vein: 1.1. Compressibility - Fully compressible: Thrombus - None : Flow - Phasic: Augmentation -Normal: Reflux - None. 2. Femoral Vein: 2.1. Compressibility - Fully compressible: Thrombus - None : Flow - Phasic: Augmentation -Normal: Reflux - None. 3. Popliteal Vein: 3.1. Compressibility - Fully compressible: Thrombus - None : Flow - Phasic: Augmentation -Normal: Reflux - None. 4. Posterior Tibial Vein: 4.1. Compressibility - Fully compressible: Thrombus - None: Flow - Phasic: Augmentation -Normal: Reflux - None. 5. Peroneal Vein: 5.1. Compressibility - Fully compressible: Thrombus - None: Flow - Phasic: Augmentation -Normal: Reflux - None. 6. Great Saphenous Vein: 6.1. Compressibility - Fully compressible: Thrombus - None: Flow - Phasic: Augmentation - Normal: Reflux - Severe >3.69s LEFT: 1. Common Femoral Vein: 1.1. Compressibility - Fully compressible: Thrombus - None: Flow - Phasic: Augmentation -Normal: Reflux - None. 2. Femoral Vein: 2.1. Compressibility - Fully compressible: Thrombus - None: Flow - Phasic: Augmentation -Normal: Reflux - None. 3. Popliteal Vein: 3.1. Compressibility - Fully compressible: Thrombus - None : Flow - Phasic: Augmentation -Normal: Reflux - None. 4. Posterior Tibial Vein: 4.1. Compressibility - Fully compressible: Thrombus - None: Flow - Phasic: Augmentation -Normal: Reflux - None. 5. Peroneal Vein: 5.1. Compressibility - Fully compressible: Thrombus - None: Flow - Phasic: Augmentation -Normal: Reflux - None. 6. Great Saphenous Vein: 6.1. Compressibility - Fully compressible: Thrombus - None: Flow - Phasic: Augmentation - Normal: Reflux - None. OTHER FINDINGS: Right: None. Left: Multiple anechoic masses with minimal vascularity, noted in the left groin area, possibly enlarged lymph nodes. IMPRESSION: Right: No evidence of deep or superficial vein thrombosis of the right lower extremity. Valvular incompetence noted of the right great saphenous vein. Left: No evidence of deep or superficial vein thrombosis of the left lower extremity. Normal valve function noted of the left side.
--- NOTE | 2017-11-12 12:16 | CP.PCM.PN ---
Subjective - Date & Time of Evaluation Date of Evaluation: 11/12/17 Time of Evaluation: 12:15 Objective - Vital Signs/Intake and Output Vital Signs (last 24 hours): Temp Pulse Resp BP Pulse Ox 98.6 F 95 H 20 147/84 96 11/12/17 07:35 11/12/17 07:35 11/12/17 07:35 11/12/17 07:35 11/12/17 07:35 Intake and Output: 11/12/17 11/12/17 06:59 18:59 Intake Total 1890 Balance 1890 - Medications Medications: Current Medications Aspirin (Ecotrin) 81 mg PO DAILY [facility] Last Admin: 11/12/17 09:41 Dose: 81 mg Docusate Sodium (Colace) 100 mg PO TID [facility] Last Admin: 11/12/17 09:40 Dose: 100 mg Ezetimibe (Zetia) 10 mg PO DAILY [facility] Last Admin: 11/12/17 09:42 Dose: 10 mg Enoxaparin Sodium (Lovenox) 40 mg SC DAILY [facility] Last Admin: 11/12/17 09:41 Dose: 40 mg Gabapentin (Neurontin) 800 mg PO TID [facility] Last Admin: 11/12/17 09:42 Dose: 800 mg Glipizide (Glucotrol) 10 mg PO DAILY [facility] Last Admin: 11/12/17 09:41 Dose: 10 mg Hydromorphone HCl (Dilaudid) 2 mg IVP Q6H PRN PRN Reason: Pain, moderate (4-7) Last Admin: 11/12/17 09:35 Dose: 2 mg Piperacillin Sod/Tazobactam Sod (Zosyn 3.375 Gm Iv Premix) 3.375 gm in 50 mls @ 100 mls/hr IVPB Q8H [facility] Last Admin: 11/12/17 05:08 Dose: 100 mls/hr Insulin Aspart (Novolog) 0 unit SC ACHS [facility] PRN Reason: Protocol Last Admin: 11/12/17 07:39 Dose: 2 unit Insulin Aspart (Novolog) 14 unit SC AC [facility] Last Admin: 11/12/17 07:40 Dose: 14 unit Insulin Glargine (Lantus) 40 unit SC HS [facility] Losartan Potassium (Cozaar) 50 mg PO DAILY [facility] Last Admin: 11/12/17 09:40 Dose: 50 mg Metformin HCl (Glucophage) 500 mg PO BIDAC [facility] Last Admin: 11/11/17 17:00 Dose: 500 mg Montelukast Sodium (Singulair) 10 mg PO DAILY [facility] Last Admin: 11/12/17 09:42 Dose: 10 mg Pregabalin (Lyrica) 50 mg PO DAILY [facility] Last Admin: 11/12/17 09:42 Dose: 50 mg Rosuvastatin Calcium (Crestor) 2.5 mg PO [facility] Last Admin: 11/11/17 21:45 Dose: 2.5 mg Sertraline HCl (Zoloft) 50 mg PO DAILY [facility] Last Admin: 11/12/17 09:42 Dose: 50 mg Sertraline HCl (Zoloft) 100 mg PO DAILY [facility] Last Admin: 11/12/17 09:42 Dose: 100 mg Trazodone HCl (Desyrel) 100 mg PO [facility] Last Admin: 11/11/17 21:46 Dose: 100 mg - Labs Labs: 11/11/17 11:21 11/11/17 11:21
--- NOTE | 2017-11-12 12:28 | CP.PCM.PN ---
Subjective - Date & Time of Evaluation Date of Evaluation: 11/12/17 Time of Evaluation: 12:28 Objective - Vital Signs/Intake and Output Vital Signs (last 24 hours): Temp Pulse Resp BP Pulse Ox 98.6 F 95 H 20 147/84 96 11/12/17 07:35 11/12/17 07:35 11/12/17 07:35 11/12/17 07:35 11/12/17 07:35 Intake and Output: 11/12/17 11/12/17 06:59 18:59 Intake Total 1890 Balance 1890 - Medications Medications: Current Medications Aspirin (Ecotrin) 81 mg PO DAILY [facility] Last Admin: 11/12/17 09:41 Dose: 81 mg Docusate Sodium (Colace) 100 mg PO TID [facility] Last Admin: 11/12/17 09:40 Dose: 100 mg Ezetimibe (Zetia) 10 mg PO DAILY [facility] Last Admin: 11/12/17 09:42 Dose: 10 mg Enoxaparin Sodium (Lovenox) 40 mg SC DAILY [facility] Last Admin: 11/12/17 09:41 Dose: 40 mg Gabapentin (Neurontin) 800 mg PO TID [facility] Last Admin: 11/12/17 09:42 Dose: 800 mg Glipizide (Glucotrol) 10 mg PO DAILY [facility] Last Admin: 11/12/17 09:41 Dose: 10 mg Hydromorphone HCl (Dilaudid) 2 mg IVP Q6H PRN PRN Reason: Pain, moderate (4-7) Last Admin: 11/12/17 09:35 Dose: 2 mg Piperacillin Sod/Tazobactam Sod (Zosyn 3.375 Gm Iv Premix) 3.375 gm in 50 mls @ 100 mls/hr IVPB Q8H [facility] Last Admin: 11/12/17 05:08 Dose: 100 mls/hr Insulin Aspart (Novolog) 0 unit SC ACHS [facility] PRN Reason: Protocol Last Admin: 11/12/17 12:19 Dose: Not Given Insulin Aspart (Novolog) 14 unit SC AC [facility] Last Admin: 11/12/17 12:18 Dose: 14 unit Insulin Glargine (Lantus) 40 unit SC HS [facility] Losartan Potassium (Cozaar) 50 mg PO DAILY [facility] Last Admin: 11/12/17 09:40 Dose: 50 mg Metformin HCl (Glucophage) 500 mg PO BIDAC [facility] Last Admin: 11/11/17 17:00 Dose: 500 mg Montelukast Sodium (Singulair) 10 mg PO DAILY [facility] Last Admin: 11/12/17 09:42 Dose: 10 mg Pregabalin (Lyrica) 50 mg PO DAILY [facility] Last Admin: 11/12/17 09:42 Dose: 50 mg Rosuvastatin Calcium (Crestor) 2.5 mg PO [facility] Last Admin: 11/11/17 21:45 Dose: 2.5 mg Sertraline HCl (Zoloft) 50 mg PO DAILY [facility] Last Admin: 11/12/17 09:42 Dose: 50 mg Sertraline HCl (Zoloft) 100 mg PO DAILY [facility] Last Admin: 11/12/17 09:42 Dose: 100 mg Trazodone HCl (Desyrel) 100 mg PO [facility] Last Admin: 11/11/17 21:46 Dose: 100 mg - Labs Labs: 11/11/17 11:21 11/11/17 11:21
--- NOTE | 2017-11-12 15:47 | CP.PCM.PN ---
Subjective - Date & Time of Evaluation Date of Evaluation: 11/12/17 Time of Evaluation: 09:00 - Subjective Subjective: iv rx renewed Objective - Vital Signs/Intake and Output Vital Signs (last 24 hours): Temp Pulse Resp BP Pulse Ox 98.6 F 95 H 20 147/84 98 11/12/17 07:35 11/12/17 11:15 11/12/17 07:35 11/12/17 11:15 11/12/17 11:15 Intake and Output: 11/12/17 11/12/17 06:59 18:59 Intake Total 1890 1710 Balance 1890 1710 - Medications Medications: Current Medications Aspirin (Ecotrin) 81 mg PO DAILY [facility] Last Admin: 11/12/17 09:41 Dose: 81 mg Docusate Sodium (Colace) 100 mg PO TID [facility] Last Admin: 11/12/17 13:34 Dose: 100 mg Ezetimibe (Zetia) 10 mg PO DAILY [facility] Last Admin: 11/12/17 09:42 Dose: 10 mg Enoxaparin Sodium (Lovenox) 40 mg SC DAILY [facility] Last Admin: 11/12/17 09:41 Dose: 40 mg Gabapentin (Neurontin) 800 mg PO TID [facility] Last Admin: 11/12/17 13:34 Dose: 800 mg Glipizide (Glucotrol) 10 mg PO DAILY [facility] Last Admin: 11/12/17 09:41 Dose: 10 mg Hydromorphone HCl (Dilaudid) 2 mg IVP Q6H PRN PRN Reason: Pain, moderate (4-7) Last Admin: 11/12/17 09:35 Dose: 2 mg Piperacillin Sod/Tazobactam Sod (Zosyn 3.375 Gm Iv Premix) 3.375 gm in 50 mls @ 100 mls/hr IVPB Q8H [facility] Last Admin: 11/12/17 13:36 Dose: 100 mls/hr Insulin Aspart (Novolog) 0 unit SC ACHS [facility] PRN Reason: Protocol Last Admin: 11/12/17 12:19 Dose: Not Given Insulin Aspart (Novolog) 14 unit SC AC [facility] Last Admin: 11/12/17 12:18 Dose: 14 unit Insulin Glargine (Lantus) 40 unit SC HS [facility] Losartan Potassium (Cozaar) 50 mg PO DAILY [facility] Last Admin: 11/12/17 09:40 Dose: 50 mg Metformin HCl (Glucophage) 500 mg PO BIDAC [facility] Last Admin: 11/11/17 17:00 Dose: 500 mg Montelukast Sodium (Singulair) 10 mg PO DAILY [facility] Last Admin: 11/12/17 09:42 Dose: 10 mg Pregabalin (Lyrica) 50 mg PO DAILY [facility] Last Admin: 11/12/17 09:42 Dose: 50 mg Rosuvastatin Calcium (Crestor) 2.5 mg PO [facility] Last Admin: 11/11/17 21:45 Dose: 2.5 mg Sertraline HCl (Zoloft) 50 mg PO DAILY [facility] Last Admin: 11/12/17 09:42 Dose: 50 mg Sertraline HCl (Zoloft) 100 mg PO DAILY [facility] Last Admin: 11/12/17 09:42 Dose: 100 mg Trazodone HCl (Desyrel) 100 mg PO [facility] Last Admin: 11/11/17 21:46 Dose: 100 mg - Labs Labs: 11/11/17 11:21 11/11/17 11:21 - Constitutional Appears: Non-toxic, Chronically Ill - Head Exam Head Exam: NORMOCEPHALIC - Eye Exam Eye Exam: PERRL - ENT Exam ENT Exam: Mucous Membranes Dry - Respiratory Exam Respiratory Exam: Decreased Breath Sounds - Cardiovascular Exam Cardiovascular Exam: REGULAR RHYTHM - GI/Abdominal Exam GI & Abdominal Exam: Distended Assessment and Plan (1) Hyperglycemia Status: Acute (2) Hyperosmolar non-ketotic state in patient with type 2 diabetes mellitus Status: Acute (3) Leukocytosis Status: Acute (4) Cellulitis Status: Acute (5) Hyperglycemia Status: Acute (6) UTI (urinary tract infection) Status: Acute
[2017-11-12] MEDS: Rosuvastatin Calcium 2.5 mg Tab PO SCH (21:30)
[2017-11-12] MEDS: (Lantus) Insulin Glargine, Recombinant SC SCH (21:33)
--- NOTE | 2017-11-13 04:29 | PN ---
ENDOCRINOLOGY FOLLOWUP NOTE DATE: 11/12/2017 ROOM: 356 SUBJECTIVE: This is a 67-year-old male with recent uncontrolled type-2 insulin-requiring diabetes, now being followed closely for metabolic management. His oral intake is quite variable as per the nursing staff with supervening extremes of glycemic fluctuation as noted thereof. His glucose levels today have been normal actually and were optimal, ranging from 106 to 107 and 192 mg/dL. It was 148 to 159 at bedtime last night. His latest chemistry shows a BUN of 17, sodium 131, potassium 3.7, chloride 93, CO2 of 28, glucose 260, and creatinine 1.1. So at this time, we will modify once again his basal and bolus insulin regimen and lower the NovoLog back to 10 units subcutaneous t.i.d. before meals to start tomorrow morning as ordered. We will continue the Lantus given as 40 units subcutaneous at bedtime daily as given. We will continue also the glipizide at 10 mg once daily as ordered. We will follow and advise accordingly. Kirsty Dangelo MD
--- NOTE | 2017-11-13 04:29 | PN ---
DATE: 11/11/2017 LOCATION: Room 356. This is a re-dictation. HOSPITAL COURSE: This is a 67-year-old male with recent uncontrolled type 2 insulin-requiring diabetes with extremes of glycemic fluctuations and continues to have hyperglycemic accelerations as noted thereof. His glucose levels have raised from 296 to 342 mg/dL. His noontime glucose was 271 as noted. The latest chemistry showed a BUN of 17, sodium 131, potassium 3.7, chloride 93, CO2 of 28, glucose 263, and creatinine 1.1. So, at this time, we will modify once again his basal and bolus insulin regimen and increase the Lantus to 40 units subcutaneously at bedtime daily to start tonight. We will also increase the NovoLog to 14 units subcutaneously t.i.d. before meals as ordered. We will continue the low-dose correction scale using NovoLog insulin as given. We will follow. Kirsty Dangelo MD
[2017-11-13] MEDS: Piperacill/Tazo 3.375gm in Dex 3.375 GM/50 ML BAG IVPB SCH ×3 (05:10→21:39)
[2017-11-13] MEDS: (Novolog) Insulin Aspart, Recombinant 100 u/ml 10 ml vial SC SCH ×7 (08:10→21:38)
[2017-11-13] MEDS: Enoxaparin 40 mg Syringe SC SCH (10:00)
--- NOTE | 2017-11-13 18:44 | CP.PCM.PN ---
Subjective - Date & Time of Evaluation Date of Evaluation: 11/13/17 Time of Evaluation: 18:44 Objective - Vital Signs/Intake and Output Vital Signs (last 24 hours): Temp Pulse Resp BP Pulse Ox 97.9 F 84 20 139/77 95 11/13/17 16:00 11/13/17 16:00 11/13/17 16:00 11/13/17 16:00 11/13/17 16:00 Intake and Output: 11/13/17 11/13/17 06:59 18:59 Intake Total 850 1390 Balance 850 1390 - Medications Medications: Current Medications Aspirin (Ecotrin) 81 mg PO DAILY [facility] Last Admin: 11/13/17 09:59 Dose: 81 mg Docusate Sodium (Colace) 100 mg PO TID [facility] Last Admin: 11/13/17 17:28 Dose: 100 mg Ezetimibe (Zetia) 10 mg PO DAILY [facility] Last Admin: 11/13/17 10:01 Dose: 10 mg Enoxaparin Sodium (Lovenox) 40 mg SC DAILY [facility] Last Admin: 11/13/17 10:00 Dose: 40 mg Gabapentin (Neurontin) 800 mg PO TID [facility] Last Admin: 11/13/17 17:28 Dose: 800 mg Glipizide (Glucotrol) 10 mg PO DAILY [facility] Last Admin: 11/13/17 09:59 Dose: 10 mg Piperacillin Sod/Tazobactam Sod (Zosyn 3.375 Gm Iv Premix) 3.375 gm in 50 mls @ 100 mls/hr IVPB Q8H [facility] Last Admin: 11/13/17 13:42 Dose: 100 mls/hr Insulin Aspart (Novolog) 0 unit SC ACHS [facility] PRN Reason: Protocol Last Admin: 11/13/17 16:47 Dose: 2 unit Insulin Aspart (Novolog) 10 unit SC AC [facility] Last Admin: 11/13/17 16:47 Dose: 10 unit Insulin Glargine (Lantus) 40 unit SC HS [facility] Last Admin: 11/12/17 21:33 Dose: 40 units Losartan Potassium (Cozaar) 50 mg PO DAILY [facility] Last Admin: 11/13/17 09:59 Dose: 50 mg Metformin HCl (Glucophage) 500 mg PO BIDAC [facility] Last Admin: 11/11/17 17:00 Dose: 500 mg Montelukast Sodium (Singulair) 10 mg PO DAILY [facility] Last Admin: 11/13/17 09:59 Dose: 10 mg Pregabalin (Lyrica) 50 mg PO DAILY [facility] Last Admin: 11/13/17 10:10 Dose: 50 mg Rosuvastatin Calcium (Crestor) 2.5 mg PO [facility] Last Admin: 11/12/17 21:30 Dose: 2.5 mg Sertraline HCl (Zoloft) 50 mg PO DAILY [facility] Last Admin: 11/13/17 09:59 Dose: 50 mg Sertraline HCl (Zoloft) 100 mg PO DAILY [facility] Last Admin: 11/13/17 10:02 Dose: 100 mg Trazodone HCl (Desyrel) 100 mg PO [facility] Last Admin: 11/12/17 21:30 Dose: 100 mg - Labs Labs: 11/11/17 11:21 11/11/17 11:21
--- NOTE | 2017-11-13 19:30 | PN ---
DATE: ENDOCRINOLOGY FOLLOWUP NOTE: LOCATION: In room 356. SUBJECTIVE: This is the 67-year-old male with recent uncontrolled type 2 insulin-requiring diabetes, now being followed closely for metabolic management. His glycemic levels are fluctuating, but much improved at this time and the latest glucose levels have ranged from 157 to 169 and 181 mg/dL. It was 100 at bedtime last night. The latest chemistry shows a BUN of 17, sodium 131, potassium 3.7, chloride 93, CO2 of 28, glucose 263, and creatinine 1.1. So, at this time, we will continue the same basal and bolus insulin regimen to allow for dose equilibration and keep him on the NovoLog given as 10 units subcutaneous t.i.d. before meals as ordered. We will continue the Lantus given as 40 units subcutaneous at bedtime daily as given. He is also on oral hypoglycemic therapy with glipizide given as 10 mg once daily as ordered. Actually, I discussed with his girlfriend at bedside regarding the outpatient need for insulin therapy at this time. At this point, the patient has never used insulin before, so the girlfriend who lives with him will do the initial insulin administration, but we also have to teach the patient insulin self administration prior to his discharge. We will obtain serial chemistries and supplement accordingly as needed. We will follow this. Kirsty Dangelo MD
[2017-11-13] MEDS: Rosuvastatin Calcium 2.5 mg Tab PO SCH (21:35)
[2017-11-13] MEDS: (Lantus) Insulin Glargine, Recombinant SC SCH (21:36)
[2017-11-14] MEDS: Piperacill/Tazo 3.375gm in Dex 3.375 GM/50 ML BAG IVPB SCH (05:25)
[2017-11-14] MEDS: (Novolog) Insulin Aspart, Recombinant 100 u/ml 10 ml vial SC SCH ×4 (07:52→11:35)
[2017-11-14 08:30] LABS: BASO # 0.2 K/uL (0.0-0.2); BASO % 1.1 % (0.0-2.0); EOS # 0.3 K/uL (0.0-0.7); EOS % 1.7 % (0.0-4.0); HEMOGLOBIN 9.4 g/dL (12.0-18.0); LYMPH # 0.9 K/uL (1.0-4.3); LYMPH % 6.1 % (20.0-40.0); MEAN CELL VOLUME 83.5 fL (80.0-94.0); MEAN CORPUSCULAR HGB CONC 33.5 g/dL (33.0-37.0); MEAN PLATELET VOLUME 7.9 fL (7.2-11.7); MONO # 0.8 K/uL (0.0-0.8); MONO % 5.1 % (0.0-10.0); NEUT # 13.4 K/uL (1.8-7.0); PLATELET COUNT 527 K/uL (130-400); RBC 3.38 Mil/uL (4.40-5.90); RED CELL DISTRIBUTION WIDTH 14.6 % (11.5-14.5); WHITE BLOOD COUNT 15.6 K/uL (4.8-10.8)
[2017-11-14 08:59] LABS: ALB/GLOB RATIO 0.8 (1.0-2.1); ALBUMIN 3.6 g/dL (3.5-5.0); ALT/SGPT 56 U/L (21-72); AST/SGOT 29 U/L (17-59); BLOOD UREA NITROGEN 17 mg/dL (9-20); CALCIUM 9.4 mg/dl (8.6-10.4); GFR AFRICAN-AMERICAN > 60; GFR NON-AFRICAN AMERICAN > 60
[2017-11-14] MEDS: Enoxaparin 40 mg Syringe SC SCH (09:33)
[2017-11-14 11:06] LABS: BANDS 2 % (0-2); BASOPHIL 1 % (0-2); EOSINOPHIL 1 % (0-4); LYMPHOCYTE 6 % (20-40); MONOCYTE 7 % (0-10); NEUTROPHIL 83 % (50-75); PLATELET ESTIMATE INCREASED (NORMAL); POIKILOCYTOSIS SLIGHT; TOTAL CELLS COUNTED 100
[2017-11-14 11:07] LABS: TEARDROP CELLS SLIGHT
[2017-11-14 13:10] VITALS: BP 151/83; PULSE 82; TEMP 98.7; O2SAT 96
--- NOTE | 2017-11-14 15:35 | CP.PCM.PN ---
Subjective - Date & Time of Evaluation Date of Evaluation: 11/14/17 Time of Evaluation: 11:00 - Subjective Subjective: alert, oriented, ambulates with cane, no acute distress. Objective - Vital Signs/Intake and Output Vital Signs (last 24 hours): Temp Pulse Resp BP Pulse Ox 98.7 F 82 20 151/83 H 96 11/14/17 07:20 11/14/17 07:20 11/14/17 07:20 11/14/17 07:20 11/14/17 07:20 Intake and Output: 11/14/17 11/14/17 06:59 18:59 Intake Total 880 Balance 880 - Labs Labs: 11/14/17 08:21 11/14/17 08:21 Assessment and Plan - Assessment and Plan (Free Text) Assessment: Patient is seen and examined, alert, awake, denies any distress. Uncontrolled DM , stared on new insulin regimen as per DR Dangelo. The girlfriend is comfortable with insulin administration. D/W DR Yu, plan to discharge home on insulin as instructed. Advised to follow up with PMD and DR Dangelo in 1 week.
== END 2017-11-14 13:45 | disposition home or self-care (01) | DRG 637 ==
LOC: C.ER 17:59 → C.9E 21:20 → C.9I 11-04 01:13 → C.3T 11-08 12:27
PROVIDERS: ADMIT Internal Medicine Nephrology; ATTEND Internal Medicine Nephrology
DX: E11.00 Type 2 diabetes mellitus with hyperosmolarity without nonketotic hyperglycemic-hyperosmolar coma (NKHHC) (principal); A41.9 Sepsis, unspecified organism; I11.0 Hypertensive heart disease with heart failure; L03.90 Cellulitis, unspecified; E87.1 Hypo-osmolality and hyponatremia; N39.0 Urinary tract infection, site not specified; Z87.891 Personal history of nicotine dependence; Z79.4 Long term (current) use of insulin; E78.5 Hyperlipidemia, unspecified; F41.1 Generalized anxiety disorder; E86.0 Dehydration; R19.00 Intra-abdominal and pelvic swelling, mass and lump, unspecified site; Z85.72 Personal history of non-Hodgkin lymphomas